=== PATIENT | female | born 1945 | race Caucasian/White ===

== ENCOUNTER → 2024-02-03 | Outpatient (CLI) | payer MEDICARE, SELFPAY ==
[2024-02-03 13:18] LABS: Free T3 2.8 pg/mL (2.18-3.98); T4 Free Direct 1.29 ng/dL (0.76-1.46); Thyroid Stim Hormone (TSH) 0.14 uIU/mL (0.358-3.74)
[2024-02-04 17:07] LABS: Thyroglobulin Antibody < 1.0 IU/mL (0.0-0.9); Thyroid Peroxidase AB 12 IU/mL (0-34)
== END | disposition home or self-care (01) ==
LOC: BFHLAB 09:03
PROVIDERS: PCP Nurse Practitioner Family; Referring Provider Nurse Practitioner Family; Visit Provider Nurse Practitioner Family
DX: E03.9 Hypothyroidism, unspecified (principal)
CPT/HCPCS: 36415; 84439; 84443; 84481; 86376; 86800

== ENCOUNTER → 2024-03-30 | Outpatient (CLI) | payer MEDICARE, SELFPAY ==
[2024-03-30 12:57] LABS: T4 Free Direct 0.98 ng/dL (0.76-1.46); Thyroid Stim Hormone (TSH) 1.45 uIU/mL (0.358-3.74)
== END | disposition home or self-care (01) ==
LOC: BFHLAB 10:35
PROVIDERS: PCP Nurse Practitioner Family; Referring Provider Nurse Practitioner Family; Visit Provider Nurse Practitioner Family
DX: E03.9 Hypothyroidism, unspecified (principal)
CPT/HCPCS: 36415; 84439; 84443

== ENCOUNTER → 2024-08-17 | Outpatient (CLI) | payer MEDICARE, SELFPAY ==
[2024-08-17 12:22] LABS: Absolute Lymphocyte Count 1.86 X10^3/uL (0.83-4.51); Absolute Neutrophil Count 2.3 X10^3/uL (2.0-7.7); Basophil# 0.03 X10^3/uL; Basophil% 0.6 % (0-1); Eosinophil# 0.17 X10^3/uL; Eosinophils% 3.4 % (0-5); Hematocrit 43.4 % (37-47); Hemoglobin 13.7 g/dL (12.0-15.0); Lymphocyte # 1.86 X10^3/ul (0.83-4.51); Lymphocyte % 37.5 % (19-41); Mean Corp Hgb Conc 31.6 g/dL (32-36); Mean Corpuscular Volume 98.2 fL (81-99); Mean Platelet Vol. 9.3 fl (6.2-12.0); Monocyte# 0.56 X10^3/uL; Monocyte% 11.3 % (0-10); NRBC Flagged by Analyzer 0 % (0-5); Neutrophil # 2.33 X10^3/uL (2.7-7.7); Platelet Count 276 K/mm3 (150-450); RBC Distribution Width SD 50.9 fl (35.1-43.9); Red Blood Count 4.42 M/mm3 (4.2-5.4)
[2024-08-17 13:08] LABS: ALB/GLOB Ratio 1.2 RATIO (0.9-2.4); AST(SGOT) 28 U/L (15-37); Alanine Aminotransfer ALT/SGPT 22 U/L (13-56); Albumin, Serum 3.9 g/dL (3.2-5.0); Alkaline Phosphatase 84 U/L (45-117); Anion Gap 4 (5-15); BUN 25 mg/dL (7-18); BUN/Creat Ratio 29.6 RATIO (10-20); Calcium,Total 9.3 mg/dL (8.5-10.1); Chloride 110 mmol/L (98-107); Cholesterol 227 mg/dL (200); Creatinine, Serum 0.84 mg/dL (0.55-1.02); EST Glomerular Filtration Rate 69 mL/min (>60); Est Glom Filt Rate - Afr Amer 84 mL/min (>60); Globulin 3.2 g/dL (2.2-4.2); Glucose 91 mg/dL (74-106); High Density Lipoprotein 60 mg/dL; Potassium 4.7 mmol/L (3.5-5.1); Protein, Total 7.1 g/dL (6.4-8.2); Sodium Level 141 mmol/L (136-145); T4 Free Direct 1.01 ng/dL (0.76-1.46); Triglycerides 61 mg/dL; Very Low Density Lipoprotein 12 mg/dL (5-40)
== END | disposition home or self-care (01) ==
LOC: BFHLAB 09:12
PROVIDERS: PCP Nurse Practitioner Family; Referring Provider Nurse Practitioner Family; Visit Provider Nurse Practitioner Family
DX: I10 Essential (primary) hypertension (principal); E78.5 Hyperlipidemia, unspecified; E03.9 Hypothyroidism, unspecified
CPT/HCPCS: 36415; 80053; 80061; 84439; 84443; 85025

== ENCOUNTER → 2025-01-24 | Outpatient (CLI) | payer MEDICARE, SELFPAY | END | disposition home or self-care (01) | LOC: LABSPEC 11:16 | PROVIDERS: PCP Nurse Practitioner Family; Visit Provider Nurse Practitioner Family | DX: R82.90 Unspecified abnormal findings in urine (principal) | CPT/HCPCS: 87086; 87088; 87186 ==

== ENCOUNTER → 2025-02-01 | Outpatient (CLI) | payer MEDICARE, SELFPAY ==
[2025-02-01 10:10] LABS: Absolute Lymphocyte Count 2.14 X10^3/uL (0.83-4.51); Absolute Neutrophil Count 2.2 X10^3/uL (2.0-7.7); Basophil# 0.05 X10^3/uL; Eosinophil# 0.19 X10^3/uL; Eosinophils% 3.7 % (0-5); Hematocrit 42.1 % (37-47); Hemoglobin 13.4 g/dL (12.0-15.0); Lymphocyte # 2.14 X10^3/ul (0.83-4.51); Lymphocyte % 41.5 % (19-41); Mean Corp Hgb Conc 31.8 g/dL (32-36); Mean Corpuscular Hgb 30.9 pg (27.0-32.0); Mean Corpuscular Volume 97.2 fL (81-99); Mean Platelet Vol. 9.1 fl (6.2-12.0); Monocyte# 0.57 X10^3/uL; NRBC Flagged by Analyzer 0 % (0-5); Neutrophil % 42.6 % (47-70); Platelet Count 298 K/mm3 (150-450); RBC Distribution Width CV 13.9 % (11.6-14.6); RBC Distribution Width SD 50.1 fl (35.1-43.9); Red Blood Count 4.33 M/mm3 (4.2-5.4); White Blood Count 5.2 K/mm3 (4.4-11.0)
[2025-02-01 10:51] LABS: ALB/GLOB Ratio 1.6 RATIO (0.9-2.4); AST(SGOT) 29 U/L (<=31); Alanine Aminotransfer ALT/SGPT 16 U/L (<=34); Albumin, Serum 4.3 g/dL (3.4-4.8); Alkaline Phosphatase 84 U/L (35-104); Anion Gap 9 (5-15); BUN 19 mg/dL (4-19); BUN/Creat Ratio 20.4 RATIO (10-20); Calcium,Total 10.1 mg/dL (7.6-11.0); Carbon Dioxide 26.1 mmol/L (21.0-32.0); Chloride 106 mmol/L (98-108); Cholesterol 205 mg/dL (<=200); Creatinine, Serum 0.91 mg/dL (0.70-1.20); EST Glomerular Filtration Rate 64 (>60); Globulin 2.7 g/dL (2.2-4.2); Glucose 93 mg/dL (70-99); High Density Lipoprotein 50 mg/dL; Low Density Lipoprotein Calc. 142 mg/dL; Potassium 4.2 mmol/L (3.3-5.1); Protein, Total 6.9 g/dL (5.9-8.4); Sodium Level 141 mmol/L (133-145); Total Bilirubin 0.33 mg/dL (0.00-1.30); Triglycerides 67 mg/dL; Very Low Density Lipoprotein 13 mg/dL (5-40); cholesterol:hdl ratio screen 4.09
== END | disposition home or self-care (01) ==
LOC: MTLAB 07:09
PROVIDERS: PCP Nurse Practitioner Family; Referring Provider Nurse Practitioner Family; Visit Provider Nurse Practitioner Family
DX: I10 Essential (primary) hypertension (principal); E78.5 Hyperlipidemia, unspecified; E03.9 Hypothyroidism, unspecified
CPT/HCPCS: 36415; 80053; 80061; 84439; 84443; 85025

== ENCOUNTER → 2025-05-02 | Outpatient (CLI) | payer MEDICARE, SELFPAY ==
--- NOTE | 2025-05-02 10:30 | RAD_ITS ---
PROCEDURE: RIGHT KNEE 1 OR 2 VIEWS 05/02/2025 REASON FOR EXAM: KNEE PAIN TECHNIQUE: RIGHT KNEE 1 OR 2 VIEWS COMPARISON: None. FINDINGS: No evidence of acute fracture or dislocation. Status post total cemented right knee arthroplasty. Hardware is intact without evidence for loosening or failure. Preserved joint spaces. No knee joint effusion. Qualitative osteopenia. No marked soft tissue swelling. RAD/Knee 1 or 2 Views IMPRESSION: 1. No acute fracture or dislocation. 2. Total right knee arthroplasty, with intact hardware. Reading Location: [id number]
--- NOTE | 2025-05-02 10:30 | RAD_ITS ---
PROCEDURE: LUMBAR SPINE 2 OR 3 VIEWS 05/02/2025 REASON FOR EXAM: BACK PAIN TECHNIQUE: Frontal and lateral view radiographs of the lumbar spine. COMPARISON: None. FINDINGS: No evidence of acute fracture or subluxation. Vertebral bodies are preserved in height. Trace degenerative retrolisthesis of L3 on L4. Slight dextroscoliotic curvature. Mild multilevel spondylotic changes with varying degrees of disc space narrowing, endplate sclerosis, anterior osteophytosis, and hypertrophic facet arthropathy. No osseous lytic or blastic lesion appreciated. Cholecystectomy surgical clips. RAD/Lumbar Spine 2 or 3 Views IMPRESSION: No evidence of acute fracture or subluxation. Multilevel degenerative changes as described. Reading Location: [id number]
--- NOTE | 2025-05-02 10:30 | RAD_ITS ---
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 Osteoporosis. No acute bone or soft tissue pathology. RAD/Sacrum-Coccyx min 2 Views IMPRESSION: No acute sacral pathology. Reading [facility]
== END | disposition home or self-care (01) ==
LOC: RAD 10:15
PROVIDERS: PCP Nurse Practitioner Family; Referring Provider Anesthesiology Pain Medicine; Visit Provider Anesthesiology Pain Medicine
DX: M25.561 Pain in right knee (principal); M54.50 Low back pain, unspecified
CPT/HCPCS: 72100; 72220; 73560

== ENCOUNTER → 2025-08-16 | Outpatient (CLI) | payer MEDICARE, SELFPAY ==
--- OUTSIDE RECORDS SUMMARY | 2025-08-16 07:23 | XMS RPT_ITS | CCD ---
Author Organization [facility] Care Team Providers Care Thermite Bomb Loader Name Role Phone Sarbjit Singh Primary Care Provider [phone] SYSTEM, PROVIDER NOT IN Attending Unavaila ble SYSTEM, PROVIDER NOT IN Referring Unavaila ble SARBJIT SINGH Primary Care Unavailable Shaun Hurt Unavailable [phone] SHAUN HURT Admitting Unavailab SHAUN Baig Attending Unavailab SARBJIT Easton Primary Care Unavailable SHAUN HURT Attending Unavailab SHAUN Baig Referring Unavailab SARBJIT East[place] Primary Care Unavailable SHAUN HURT Admitting Unavailab SHAUN Baig Referring Unavailab SARBJIT [place] Primary Care Unavailable CRISTAL ALEX Attending Unavailable CRISTAL ALEX Referring Unavailable SARBJIT SINGH Primary Care Unavailable CRISTAL ALEX Attending Unavailable CRISTAL ALEX Referring Unavailable SARBJIT SINGH Primary Care Unavailable CRISTAL ALEX Attending Unavailable CRISTAL ALEX Referring Unavailable SARBJIT SINGH Primary Care Unavailable CRISTAL ALEX Attending Unavailable CRISTAL ALEX Referring Unavailable SARBJIT SINGH Primary Care Unavailable LAURO LYMAN Attending Unavailable SARBJIT SINGH Primary Care Unavailable SARBJIT SINGH Primary Care Unavailable SHAUN HURT Referring Unavailab le NikoVivianaTayler Unavailable Unavailable Mead II, Sharan Unavailable Unavailable Update Needed Unavailable Unavailable Unavailable Unavailable Unavailable Sarbjit Singh Primary Care Provider Shaun Hurt Unavailable [phone] SARBJIT SINGH Primary Care Unavailable SHAUN HURT Attending Unavailab le SARBJIT SINGH Primary Care Unavailable SHAUN HURT Attending Unavailab SARBJIT Easton Primary Care Unavailable SHAUN HURT Attending Unavailab SARBJIT [place] Primary Care Unavailable BLU, SHAUN TAVAREZ Admitting Unavailab le BLU, SHAUN TAVAREZ Referring Unavailab le ISAI CRISTAL Attending Unavailable SARBJIT SINGH Primary Care Unavailable BLU, SHAUN TAVAREZ Referring Unavailab le BLU, SHAUN TAVAREZ Admitting Unavailab le BLU, SHAUN TAVAREZ Attending Unavailab le SINGHSARBJIT MOODY Primary Care Unavailable BLU, SHAUN TAVAREZ Admitting Unavailab le BLU, HSAUN TAVAREZ Referring Unavailab le SINGH, SARBJIT TURNER Primary Care Unavailable DOROTHEA, SARBJIT TURNER Primary Care Unavailable BLU, SHAUN TAVAREZ Attending Unavailab le SINGH, SARBJIT TURNER Primary Care Unavailable BLU, SHAUN TAVAREZ Admitting Unavailab le BLU, SHAUN TAVAREZ Referring Unavailab le SINGH, SARBJIT TURNER Primary Care Unavailable NIKOLE VANG Attending Unavailable Madhav Salazar Unavailable Madhav Salazar Unavailable Krysta, Eden Unavailable Unavailable Mead II, Dr. Sharan Whitney Referring Unavai lable Mead II, Dr. Sharan Whitney Attending Unavai lable Mateo, Ms. Madhav Connelly Primary Care Unavail able Farrier, MsMarybel Pruett Attending Unavaila ble Hellinger, Ms. Madhav Connelly Primary Care Unavail able Farrier, MsMarybel Pruett Referring Unavaila ble Farrier, MsMarybel Pruett Referring Unavaila ble Farrier, MsMarybel Pruett Attending Unavaila ble Hellinger, Ms. Madhav Connelly Primary Care Unavail able Farrier, MsMarybel Pruett Referring Unavaila ble Farrier, MsMarybel Pruett Attending Unavaila ble Hellinger, Ms. Madhav Connelly Primary Care Unavail able Farrier, MsMarybel Pruett Attending Unavaila ble Manocchio, MsMarybel Eden Referring Unavail able Hellinger, Ms. Madhav Connelly Primary Care Unavail able Hellinger, Ms. Madhav Connelly Primary Care Unavail able Mead II, Dr. Sharan Whitney Referring Unavai lable Mead II, Dr. Sharan Whitney Attending Unavai lable Hailey MARTEL, Nicolle Unavailable Madhav Dykes Primary Care Provide r HAILEY, NICOLLE Referring Unavailable MADHAV SALAZAR Primary Care Unavailable Hailey SOLUTION MANAGER-C, [place] Primary Care Provider Hailey SOLUTION MANAGER-C, Nicolle Referring Provider Karime SOLUTION MANAGER-C, Fouzia Attending Provider Hailey SOLUTION MANAGER-C, Nicolle Attending Provider Barbara PALENCIA, Dr. Patel Attending Provider Dr. Amanda Jimenez MD Referring Provider Fouzia Schaffer Attending Unavailable Hailey, Nicolle Primary Care Unavailable Amanda Jimenez Attending Unavailable Amanda Jimenez Referring Unavailable Hailey, Nicolle Primary Care Unavailable Hailey, Nicolle Attending Unavailable Hailey, Nicolle Primary Care Unavailable Hailey, Nicolle Referring Unavailable Fouzia Schaffer Attending Unavailable Hailey, Nicolle Referring Unavailable Hailey, Nicolle Primary Care Unavailable Hailey, Nicolle Attending Unavailable Hailey, Nicolle Referring Unavailable Hailey, Nicolle Primary Care Unavailable Allergies Allergy Classification Reported Allergen(s) Allergy Type Date of Onset Reaction(s) Facility (1 source) ALLERGIES NOT ON FILE; Translations: [ALLERGIES NOT ON FILE] Propensity to adverse reactions (disorder) [facility] 2 Repository Medications Current Medications Medication Drug Class(es) Dates Sig (Normalized) Sig (Original) acetaminophen 325 mg / HYDROcodone bitartrate 5 mg oral tablet (20 sources) Opioid Agonist Start: 01-13-2022 End: 01-15-2022 take 1 tablet by mouth every six hours hydrocodone-acetami nophen 5 mg-325 mg oral tablet ; 1 tab(s) orally every 6 hours Quantity: 12 Refills: 0 Ordered: 13-Jan-2022 Eden Willoughby Start: 13-Jan-2022 End: 15-Jan-2022 Generic Substitution Allowed Comments: Caution federal law prohibits the transfer of this drug to any person other than the person for whom it was prescribed.May cause drowsiness. Alcohol may intensify this effect. Use care when operating dangerous machinery.This product contains acetaminophen. Do not use with any other product containing acetaminophen to prevent possible liver damage.Using more of this medication than prescribed may cause serious breathing problems. Start: 01-13-2022 HYDROcodone-Ac etaminophen 5-325 MG Oral Tablet Quantity: 12 Refills: 0 Ordered: 13-Jan-2022 DO Start : 13-Jan-2022 Active Start: 10-21-2019 End: 10-28-2019 take 1 tablet by mouth every four hours as needed for pain HYDROcodone-acetaminophen (NORCO) 5-325 mg per tablet Indications: Status post total right knee replacement Take 1 (one) tablet by mouth every 4 (four) hours as needed for pain . 40 tablet 0 10/21/2019 10/28/2019 Start: 10-14-2019 End: 10-21-2019 take 1 tablet by mouth once as needed, then take 2 tablets by mouth every four hours as needed HYDROcodone-acetaminophen (NORCO) 5-325 mg per tablet Indications: S/P total knee arthroplasty, right Take 1 (one) tablet to 2 (two) tablets by mouth every 4 (four) hours as needed 7 days . 40 tablet 0 10/14/2019 10/21/2019 Start: 10-13-2019 End: 10-14-2019 take 1-2 tablets by mouth every four hours as needed 1-2 tablet, Oral, Every 4 hours PRN, moderate to severe pain, Starting 10/13/19 at 1236 For patient reported pain 4/10 or less, give 1 tablet; 5 and above/10, give 2 tablets Comment on above: Caution federal law prohibits the transfer of this drug to any person other than the person for whom it was prescribed.May cause drowsiness. Alcohol may intensify this effect. Use care when operating dangerous machinery.This product contains acetaminophen. Do not use with any other product containing acetaminophen to prevent possible liver damage.Using more of this medication than prescribed may cause serious breathing problems. aspirin 325 mg delayed release oral tablet (20 sources) Platelet Aggregation Inhibitor, Nonsteroidal Anti-inflammatory Drug Start: 10-13-2019 End: 11-13-2019 take 1 tablet by mouth twice daily aspirin 325 MG EC tablet Take 1 (one) tablet (325 mg total) by mouth 2 (two) times a day . 60 tablet 0 10/14/2019 11/13/2019 Active End: 10-14-2019 take 1 tablet by mouth once daily aspirin 81 MG EC tablet Take 81 mg by mouth daily . 0 10/14/2019 Discontinued (Stop Taking at Discharge) Calcium Carbonate / vitamin D3 (18 sources) take 1 tablet by mouth twice daily calcium carbonate/vitamin D3 (CALCIUM 500 + D, D3, ORAL) Take 1 tablet by mouth 2 (two) times a day. 0 Active cranberry fruit extract (CRANBERRY EXTRACT ORAL) (18 sources) take 1 tablet by mouth once daily cranberry fruit extract (CRANBERRY EXTRACT ORAL) Take 1 tablet by mouth daily. 0 Active docusate sodium 100 mg oral capsule (18 sources) take 1 capsule by mouth twice daily docusate sodium (COLACE) 100 MG capsule Take 100 mg by mouth 2 (two) times a day. 0 Active FIBER, HERBAL, ORAL (18 sources) take 1 tablet by mouth once daily FIBER, HERBAL, ORAL Take 1 tablet by mouth daily. 0 Active latanoprost 0.05 mg/ml ophthalmic solution (20 sources) Prostaglandin Analog Start: 025 Latanoprost 0.005 % drops Active 1 NMA OPHTHALMIC AT BEDTIME January 22, 2025 12:00am Start: 05-23-2021 Latanoprost 0. 005 % Ophthalmic Solution Quantity: 7 Refills: 0 Ordered: 23-May-2021 DO Start : 23-May-2021 Active Start: 10-13-2019 End: 10-14-2019 take 1 drop(s) into the eye(s) once daily 1 drop, Right Eye, Daily, First dose on Fri10/13/19 at 1500 Start: 06-27-2019 take 1 drop(s) into the eye(s) once daily latanoprost (XALATAN) 0.005 % ophthalmic solution Administer 1 drop to the right eye daily . 0 06/27/2019 Active Start: 06-27-2019 latanoprost (X ALATAN) 0.005 % ophthalmic solution LATANOPROST 0.00 5% EYE DROPS ; 1 drop(s) in the right eye once a day (in the evening) Quantity: 0 Refills: 0 Ordered: 13-Jan-2022 Mimi Tomlinson Generic Substitution Allowed Comments: Source=Surescripts, Medication=LATANOPROST 0.005% EYE DROPS, OriginatingSource=[facility], OriginatingProvider=COREY WIN, [id number], Date Last Modified/Filled=23-May-2021 Comment on above: Source=Surescripts, Medication=LATANOPROST 0.005% EYE DROPS, OriginatingSource=[facility], OriginatingProvider=COREY WIN, [id number], Date Last Modified/Filled=23-May-2021 levothyroxine sodium 0.088 mg oral tablet (20 sources) l-Thyroxine Start : 01-22 take 1 tablet by mouth once daily Levothyroxine (Synthroid) 88 mcg tablet Active 88 ug PO daily January 22, 2025 12:00am Start: 09-21-2021 Synthroid 100 MCG Oral Tablet Quantity: 90 Refills: 0 Ordered: 17-Nov-2021 DO Start : 21-Sep-2021 Active Start: 03-22-2021 Synthroid 88 M CG Oral Tablet Quantity: 90 Refills: 0 Ordered: 21-May-2021 DO Start : 22-Mar-2021 Active Start: 05-07-2019 End: 10-14-2019 take 1 tablet by mouth once daily Synthroid 75 mcg tablet Take 75 mcg by mouth once daily . 0 05/07/2019 Active Start: 05-07-2019 SYNTHROID 50 m cg tablet 75 mcg . 0 05/07/2019 Active Start: 05-07-2019 SYNTHROID 50 m cg tablet take 1 tablet by kevan th once daily, then take 1 tablet by mouth once daily SYNTHROID 100 MCG TABLET ; 1 tab(s) orally once a day//Brand Name//curently pt takes (7) tabs on Friday Night//pt was consulted on taking medication once daily Quantity: 0 Refills: 0 Ordered: 13-Jan-2022 Mimi Tomlinson Generic Substitution Allowed Comments: Source=Isacrivenu, Medication=SYNTHROID 100 MCG TABLET, OriginatingSource=[facility], OriginatingProvider=MADHAV SALAZAR, Duration=90, Date Last Modified/Filled=17-Nov-2021 Levothyroxine So dium TABS Quantity: 0 Refills: 0 Ordered: 29-Oct-2019 DO Active Levothyroxine So dium TABS Refills: 0 Active Comment on above: Source=Surescripts, Medication=SYNTHROID 100 MCG TABLET, OriginatingSource=[facility], OriginatingProvider=MADHAV SALAZAR, Duration=90, Date Last Modified/Filled=17-Nov-2021 Lutein (18 sources) take 1 tablet by mouth once daily LUTEIN ORAL Take 1 tablet by mouth daily. 0 Active multivit-minerals /folic acid (MULTIVIT WITH MIN-FOLIC ACID ORAL) (18 sources) take 1 tablet by mouth once daily multivit-minerals /folic acid (MULTIVIT WITH MIN-FOLIC ACID ORAL) Take 1 tablet by mouth daily. 0 Active pantoprazole 20 mg delayed release oral tablet (20 sources) Proton Pump Inhibitor Start : 10-13 End: 11-13 take 1 tablet by mouth once daily pantoprazole (PROTONIX) 20 MG tablet Take 1 (one) tablet (20 mg total) by mouth daily . 30 tablet 0 10/14/2019 11/13/2019 Active SELENIUM ORAL (18 sources) take 1 tablet by mouth once daily SELENIUM ORAL Take 1 tablet by mouth daily. 0 Active Completed/Discontinued Medications Medication Drug Class(es) Dates Sig (Normalized) Sig (Original) acetaminophen 325 mg oral tablet (11 sources) Start: 10-14-2019 End: 10-24-2019 take 2 tablets by mouth every four hours acetaminophen (TYLENOL) 325 MG tablet Take 2 (two) tablets (650 mg total) by mouth every 4 (four) hours for 10 days . 30 tablet 0 10/14/2019 10/24/2019 Start: 10-13-2019 End: 10-14-2019 take 650 mg by mouth every four hours 650 mg, Oral, Every 4 hours scheduled, First dose on Fri10/13/19 at 1330 atorvastatin 10 mg oral tablet (7 sources) HMG-CoA Reductase Inhibitor Start: 05-07-2019 End: 10-15-2019 atorvastatin (LIPITOR) 10 MG tablet calcium chloride 0.0014 meq/ml / potassium chloride 0.004 meq/ml / sodium chloride 0.103 meq/ml / sodium lactate 0.028 meq/ml injectable solution (3 sources) Start: 10-13-2019 End: 10-14-2019 take 100 mL intravenous route every hour 100 mL/hr, Intravenous, Continuous, Starting Fri10/13/19 at 1330 Saline lock once tolerating oral intake without nausea Start: 10-13-2019 End: 10-14-2019 lactated ringers bolus 1,000 mL ceFAZolin 1000 mg injection (1 source) Cephalosporin Antibacterial Start: 10-13-2019 End: 10-14-2019 take 1000 mg intravenous route every eight hours 1,000 mg, Intravenous, at 100 mL/hr, Every 8 hours, First dose on Fri10/13/19 at 1230, For 3 doses, PACU to Post Procedure Starting in pacu. Indication (POST PROCEDURE): Ortho docusate sodium 50 mg / sennosides, snf 8.6 mg oral tablet (1 source) Start: 10-13-2019 End: 10-14-2019 take 1 tablet by mouth twice daily 1 tablet, Oral, 2 times daily, First dose on Fri10/13/19 at 2100 NOT for abdominal surgery patients. &nb sp;Hold for loose stools. Do Not Crush or Chew if administering orally due to bitter taste. May be crushed if given via tube. 1 ml ketorolac tromethamine 15 mg/ml injection (1 source) Nonsteroidal Anti-inflammatory Drug, Cyclooxygenase Inhibitor Start: 10-13-2019 End: 10-14-2019 15 mg, Intravenous, Every 6 hours scheduled, First dose on Fri10/13/19 at 1330, For 48 hours magnesium hydroxide 80 mg/ml oral suspension (1 source) Start: 10-13-2019 End: 10-14-2019 take 2400 mg by mouth once daily as needed for constipation 2,400 mg (30 mL), Oral, Daily PRN, constipation, contipation, Starting Fri10/13/19 at 1236 naloxone (NARCAN) injection 0.1 mg (1 source) Start: 10-13-2019 End: 10-14-2019 naloxone (NARCAN) injection 0.1 mg nitrofurantoin, macrocrystals 50 mg oral capsule (12 sources) Nitrofuran Antibacterial Start: 11-27-2022 take 1 capsule by mouth once daily Nitrofurantoin Macrocrystal 50 MG Oral Capsule TAKE 1 CAPSULE Daily Quantity: 90 Refills: 3 Ordered: 27-Nov-2022 Sharan Mead II, MD Start : 27-Nov-2022 Active Start: 11-08-2019 take 1 capsule by [facility] once daily Nitrofurantoin Macrocrystal 50 MG Oral Capsule TAKE 1 CAPSULE Daily Quantity: 90 Refills: 3 Ordered: 14-Nov-2021 Sharan Mead II, MD Start : 08-Nov-2019 Active Comment on above: Source=Surescripts, Medication=NITROFURANTOIN MCR 50 MG CAP, OriginatingSource=[facility], OriginatingProvider=SHARAN MEAD II, Duration=90, Date Last Modified/Filled=14-Nov-2021 nitrofurantoin, macrocrystals 25 mg / nitrofurantoin, monohydrate 75 mg oral capsule (2 sources) Nitrofuran Antibacterial Star t: 01-04 End: 01-05 take 1 capsule by mouth every twelve hours at mealtime Nitrofurantoin Monohyd/M-Cryst (Macrobid) 100 mg capsule Discontinued 100 mg PO Q12H 10 5 0 January 22, 2025 12:00am January 26, 2025 12:00am January 27, 2025 12:07am must administer with a meal/food 2 ml ondansetron 2 mg/ml injection (1 source) Serotonin-3 Receptor Antagonist Star t: 05-25 End: 06-25 take 4 mg intravenous route every six hours as needed 4 mg, Intravenous, Every 6 hours PRN, nausea, vomiting, Starting 10/13/19 at 1236 polyethylene glycol 3350 73542 mg powder for oral solution (8 sources) Osmotic Laxative Star t: 06-25 End: 10-06 polyethylene glycol (MIRALAX) 17 gram powder Take 17 (seventeen) g by mouth daily for 7 days . 255 g 0 10/14/2019 10/21/2019 regadenoson (LEXISCAN) 0.4 mg/5 mL injection - ADS Override Pull (1 source) Star t: 11-25 End: 11-25 20 regadenoson (LEXISCAN) 0.4 mg/5 mL injection - ADS Override Pull Sodium Chloride (1 source) Star t: 05-25 20 End: 06-25 20 sodium chloride (PF) (NS) flush 5 mL technetium (Tc-99m) tetrofosmin (Tc-MYOVIEW) injection 8-25 millicurie (2 sources) Star t: 11-25 20 End: 11-25 20 technetium (Tc-99m) tetrofosmin (Tc-MYOVIEW) injection 8-25 millicurie Start: 10-07-2019 End: 10-07-2019 technetium (Tc-99m) tetrofos min (Tc-MYOVIEW) injection 8-25 millicurie tranexamic acid 650 mg oral tablet (1 source) Antifibrinolytic Agent Start: 10-13-2019 End: 10-13-2019 tranexamic acid (LYSTEDA) tablet 1,950 mg Start: 10-13-2019 End: 10-13-2019 tranexamic acid (LYSTEDA) ta blet 1,950 mg trimethoprim 100 mg oral tablet (20 sources) Dihydrofolate Reductase Inhibitor Antibacterial Start: 11-13-2020 take 1 tablet by mouth once daily Trimethoprim 100 MG Oral Tablet Take 1 tablet daily Quantity: 90 Refills: 1 Ordered: 02-Dec-2022 Shaarn Mead II, MD Start : 13-Nov-2020 Active Start: 06-27-2019 End: 10-14-2019 take 1 tablet by mouth twice daily trimethoprim (TRIMPEX) 100 mg tablet Take 100 mg by mouth 2 (two) times a day . 0 06/27/2019 Active Trimethoprim 100 MG Oral Tablet Quantity: 0 Refills: 0 Ordered: 08-Nov-2019 DO Active Problems Active Problems Problem Classification Problem Date Documented Date Episodic/Chronic Cataract (20 sources) Combined form of senile cataract; Translations: [Combined form of senile cataract of left eye] Onset: 08-05-2016 06-28-2019 Chronic Cataract (20 sources) Pseudophakia of right eye; Translations: [Pseudophakia of right eye] Onset: 08-05-2016 06-28-2019 Disorders of lipid metabolism (20 sources) Hypercholesterolemia; Translations: [High cholesterol] 09-24-2019 Chronic Essential hypertension (1 source) Essential (primary) hypertension; Translations: [Essential (primary) hypertension] Onset: 02-09-2025 Chronic Fracture of lower limb (20 sources) Fracture of tibial plateau; Translations: [Closed fracture of upper end of tibia alone] Onset: 01-25-2022 01-13-2022 Episodic Genitourinary symptoms and ill-defined conditions (11 sources) Female stress incontinence; Translations: [Stress incontinence, female] Chronic Glaucoma (20 sources) Primary open angle glaucoma; Translations: [Glaucoma] Onset: 08-05-2016 06-28-2019 Chronic Osteoarthritis (1 source) Osteoarthritis of left knee joint; Translations: [Primary osteoarthritis of left knee] Other connective tissue disease (5 sources) History of total knee arthroplasty; Translations: [S/P total knee arthroplasty, right] Chronic Other nervous system disorders (11 sources) Abnormal gait; Translations: [Abnormality of gait] Episodic Other non-traumatic joint disorders (11 sources) Knee stiff; Translations: [Stiffness of joint, not elsewhere classified, lower leg] Episodic Other non-traumatic joint disorders (2 sources) Knee pain; Translations: [Chronic pain of right knee] Episodic Other non-traumatic joint disorders (20 sources) Pain in right knee; Translations: [Chronic pain of right knee] Onset: 05-14-2025 Episodic Other screening for suspected conditions (not mental disorders or infectious disease) (5 sources) Electrocardiogram abnormal; Translations: [Patient encounter status] Onset: 09-13-2024 09-13-2024 Episodic Thyroid disorders (2 sources) Hypothyroidism; Translations: [Hypothyroidism, unspecified] 01-22-2025 Chronic Thyroid disorders (20 sources) Disorder of thyroid gland; Translations: [Disease of thyroid gland] 09-24-2019 Episodic Unclassified (20 sources) Closed fracture of right tibial plateau; Translations: [Closed fracture of right tibial plateau, initial encounter] Onset: 09-14-2019 09-14-2019 Unclassified (20 sources) Patient encounter status; Translations: [Preop cardiovascular exam] 09-24-2019 Unclassified (2 sources) FALL/ LEG INJURY 01-13-2022 Comment on above: FALL/ LEG INJURY Unclassified (1 source) Tibial plateau fracture, left 01-13-2022 Unclassified (1 source) Closed fracture of left patella 01-13-2022 Urinary tract infections (13 sources) Acute urinary tract infection; Translations: [Urinary tract infection, site not specified] 01-22-2025 Episodic Past or Other Problems Problem Classification Problem Date Documented Da te Episodic/Chronic Blindness and vision defects (20 sources) Regular astigmatism; Translations: [Regular astigmatism] Onset: 08-05-2016 06-28-2019 Episodic Genitourinary symptoms and ill-defined conditions (20 sources) Nocturia; Translations: [Nocturia] Onset: 01-22-2025 Episodic Other eye disorders (20 sources) History of cataract extraction; Translations: [S/P cataract extraction and insertion of intraocular lens] Onset: 08-15-2016 06-28-2019 Episodic Other eye disorders (20 sources) Tear film insufficiency; Translations: [Dry eye syndrome] Onset: 08-05-2016 06-28-2019 Episodic NEGATED: Highlighted row has not occurred!Residual codes; unclassified (20 sources) Disease Episodic Results Test Name Value Interpretation Reference Range Facility Knee 1 or 2 Viewson 05-02-20 Knee 1 or 2 Views [facility] [address] [place] [id number] Knee 1 or 2 Views MR#: [id number] Acct: [id number] Name: CAROL GRIMM ANN Rep #: [id number] : 1945 F 79 From: Vinny Cummins MD PCP: DEVANG Obando Status: REG CLI Study: Knee 1 or 2 Views Date of Exam: 05/02/25 Exam# [id number] Ordering Dr: Amanda Jimenez MD PROCEDURE: RIGHT KNEE 1 OR 2 VIEWS 05/02/2025 REASON FOR EXAM: KNEE PAIN TECHNIQUE: RIGHT KNEE 1 OR 2 VIEWS COMPARISON: None. FINDINGS: No evidence of acute fracture or dislocation. Status post total cemented right knee arthroplasty. Hardware is intact without evidence for loosening or failure. Preserved joint spaces. No knee joint effusion. Qualitative osteopenia. No marked soft tissue swelling. RAD/Knee 1 or 2 Views IMPRESSION: 1. No acute fracture or dislocation. 2. Total right knee arthroplasty, with intact hardware. Reading Location: [id number] CC: SOLUTION MANAGER-Richard Pacheco; Dr. Amanda Jimenez MD Foreign Language Professor: Signed Normal [facility] Lumbar Spine 2 or 3 Viewson 05-02-2025 Lumbar Spine 2 or 3 Views [facility] [address] [place] [address] Lumbar Spine 2 or 3 Views MR#: [id number] Acct: [id number] Name: CAROL GRIMM ANN Rep #: [id number] : 1945 F 79 From: Vinny Cummins MD PCP: DEVANG Obando Status: REG CLI Study: Lumbar Spine 2 or 3 Views Date of Exam: Exam# [id number] Ordering Dr: Amanda Jimenez MD PROCEDURE: LUMBAR SPINE 2 OR 3 VIEWS 05/02/2025 REASON FOR EXAM: BACK PAIN TECHNIQUE: Frontal and lateral view radiographs of the lumbar spine. COMPARISON: None. FINDINGS: No evidence of acute fracture or subluxation. Vertebral bodies are preserved in height. Trace degenerative retrolisthesis of L3 on L4. Slight dextroscoliotic curvature. Mild multilevel spondylotic changes with varying degrees of disc space narrowing, endplate sclerosis, anterior osteophytosis, and hypertrophic facet arthropathy. No osseous lytic or blastic lesion appreciated. Cholecystectomy surgical clips. RAD/Lumbar Spine 2 or 3 Views IMPRESSION: No evidence of acute fracture or subluxation. Multilevel degenerative changes as described. Reading Location: [facility] CC: SOLUTION MANAGER-C Nicolle Pacheco; Dr. Amanda Jimenez MD Foreign Language Professor: Signed Normal [facility] Sacrum-Coccyx min 2 Viewson 05-02-2025 Sacrum-Coccyx min 2 Views [facility] [address] [place] [id number] Sacrum-Coccyx min 2 Views MR#: [id number] Acct: [id number] Name: CAROL GRIMM Rep #: [id number] : 1945 F 79 From: Adam Apple MD PCP: DEVANG Obando Status: REG CLI Study: Sacrum-Coccyx min 2 Views Date of Exam: Exam# [id number] Ordering Dr: Amanda Jimenez MD 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 Osteoporosis. No acute bone or soft tissue pathology. RAD/Sacrum-Coccyx min 2 Views IMPRESSION: No acute sacral pathology. Reading Location: [place] [address] CC: DEVANG Pacheco; Dr. Amanda Jimenez MD Foreign Language Professor: Signed Normal [facility] Absolute lymphocyte countOrd ered By: Nicolle Pacheco on 02-01-2025 Lymphocytes Auto (Unsp spec) [#/Vol] 2.14 10*3/uL 0.83-4.51 [facility] Absolute neutrophil countOrd ered By: Nicolle Pacheco on 02-01-2025 Neutrophils (Bld) [#/Vol] 2.2 10*3/uL 2.0-7.7 [facility] Anion gap in Serum or Plasma Ordered By: Nicolle Pacheco on 02-01-2025 Anion gap [Moles/Vol] 9 mmol/L 5-15 [facility] Automated lymphocyte count a s percentage of total leukocytesOrdered By: Nicolle Pacheco on 02-01-2025 Lymphocytes/100 WBC Auto (Unsp spec) 41.5 % High 19-41 [facility] BUN/creatinine ratioOrdered By: Nicolle Pacheco on 02-01-2025 Urea nitrogen/Creatinine [Mass ratio] 20.4 mg/mg High 10-20 [facility] Basophil percentageOrdered B y: Nicolle Pacheco on 02-01-2025 Basophils/100 WBC (Bld) 1.0 % 0-1 [facility] Bilirubin, totalOrdered By: Nicolle Pacheco on 02-01-2025 Bilirubin [Mass/Vol] 0.33 mg/dL 0.00-1.30 [facility] CBC W/Diff, Automatedon 01-05 Absolute Lymph 2.14 X10 3/uL Normal 0.83-4.51 [facility] Comment on above: Performed By: #### L 501.9520, L100.0100, L506.0400, L500.4100, L500.4050 #### [facility] [address] [place], [address] Absolute Neut 2.2 X10 3/uL Normal 2.0-7.7 [facility] Comment on above: Performed By: #### L 501.9520, L100.0100, L506.0400, L500.4100, L500.4050 #### [facility] [address] [place], [address] Basophils/100 WBC (Bld) 1.0 % Normal 0-1 [facility] Comment on above: Performed By: #### L 501.9520, L100.0100, L506.0400, L500.4100, L500.4050 #### [facility] [address] [place], [address] Eosinophils/100 WBC (Bld) 3.7 % Normal 0-5 [facility] Comment on above: Performed By: #### L 501.9520, L100.0100, L506.0400, L500.4100, L500.4050 #### [facility] [address] [place], [address] Erythrocyte distribution width (RBC) [Ratio] 13.9 % Normal 11.6-14.6 [facility] Comment on above: Performed By: #### L 501.9520, L100.0100, L506.0400, L500.4100, L500.4050 #### [facility] [address] [place], [address] Hematocrit (Bld) [Volume fraction] 42.1 % Normal 37-47 [facility] Comment on above: Performed By: #### L 501.9520, L100.0100, L506.0400, L500.4100, L500.4050 #### [facility] [address] [place], [address] Hemoglobin (Bld) [Mass/Vol] 13.4 g/dL Normal 12.0-15.0 [facility] Comment on above: Performed By: #### L 501.9520, L100.0100, L506.0400, L500.4100, L500.4050 #### [facility] [address] [place], [address] IG% 0.200 Normal 0.0-0.9 [facility] Comment on above: Result Comment: IG% - Immature Granulocytes (promyelocytes, myelocytes and metamyelocytes) > 1% indicates that a LEFT SHIFT is Present. Performed By: #### L 501.9520, L100.0100, L506.0400, L500.4100, L500.4050 #### [facility] [address] [place], [address] Lymphocytes/100 WBC (Bld) 41.5 % High 19-41 [facility] Comment on above: Performed By: #### L 501.9520, L100.0100, L506.0400, L500.4100, L500.4050 #### [facility] [address] [place], [address] MCH (RBC) [Entitic mass] 30.9 pg Normal 27.0-32.0 [facility] Comment on above: Performed By: #### L 501.9520, L100.0100, L506.0400, L500.4100, L500.4050 #### [facility] [address] [place], [address] MCHC (RBC) [Mass/Vol] 31.8 g/dL Low 32-36 [facility] Comment on above: Performed By: #### L 501.9520, L100.0100, L506.0400, L500.4100, L500.4050 #### [facility] [address] [place], [address] MCV (RBC) [Entitic vol] 97.2 fL Normal 81-99 [facility] Comment on above: Performed By: #### L 501.9520, L100.0100, L506.0400, L500.4100, L500.4050 #### [facility] [address] [place], [address] Monocytes/100 WBC (Bld) 11.0 % High 0-10 [facility] Comment on above: Performed By: #### L 501.9520, L100.0100, L506.0400, L500.4100, L500.4050 #### [facility] [address] [place], [address] Neutrophils/100 WBC (Bld) 42.6 % Low 47-70 [facility] Comment on above: Performed By: #### L 501.9520, L100.0100, L506.0400, L500.4100, L500.4050 #### [facility] [address] [place], [address] Nucleated RBC (Bld) [#/Vol] 0 10*3/uL Normal 0-5 [facility] Comment on above: Performed By: #### L 501.9520, L100.0100, L506.0400, L500.4100, L500.4050 #### [facility] [address] [place], [address] Platelet mean volume (Bld) [Entitic vol] 9.1 fL Normal 6.2-12.0 [facility] Comment on above: Performed By: #### L 501.9520, L100.0100, L506.0400, L500.4100, L500.4050 #### [facility] [address] [place], [address] Platelets (Bld) [#/Vol] 298 10*3/uL Normal 150-450 [facility] Comment on above: Performed By: #### L 501.9520, L100.0100, L506.0400, L500.4100, L500.4050 #### [facility] [address] [place], [address] RBC (Bld) [#/Vol] 4.33 10*6/uL Normal 4.2-5.4 [facility] Comment on above: Performed By: #### L 501.9520, L100.0100, L506.0400, L500.4100, L500.4050 #### [facility] [address] [place], [address] RDW SD 50.1 fl High 35.1-43.9 [facility] Comment on above: Performed By: #### L 501.9520, L100.0100, L506.0400, L500.4100, L500.4050 #### [facility] [address] [place], [address] WBC (Bld) [#/Vol] 5.2 10*3/uL Normal 4.4-11.0 [facility] Comment on above: Performed By: #### L 501.9520, L100.0100, L506.0400, L500.4100, L500.4050 #### [facility] [address] [place], [address] Calculated very low density lipoprotein (VLDL) cholesterol measurementOrdered By: Nicolle Pacheco on 02-01-2025 Calculated very low density lipoprotein (VLDL) cholesterol measurement 13 mg/dL 5-40 [facility] Carbon dioxide, total [Moles /volume] in Central venous bloodOrdered By: Nicolle Pacheco on 02-01-2025 CO2 [Moles/Vol] 26.1 mmol/L 21.0-32.0 [facility] Chloride assayOrdered By: Ra lisa Pacheco on 02-01-2025 Chloride [Moles/Vol] 106 mmol/L 98-108 [facility] Comprehensive Metabolic Prof ilon 02-01-2025 Albumin [Mass/Vol] 4.3 g/dL Normal 3.4-4.8 [facility] Comment on above: Performed By: #### L 501.9520, L100.0100, L506.0400, L500.4100, L500.4050 #### [facility] [address] [place], [address] Albumin/Globulin [Mass ratio] 1.6 {ratio} Normal 0.9-2.4 [facility] Comment on above: Performed By: #### L 501.9520, L100.0100, L506.0400, L500.4100, L500.4050 #### [facility] [address] [place], [address] ALK PHOS 84 U/L Normal 35-104 [facility] Comment on above: Performed By: #### L 501.9520, L100.0100, L506.0400, L500.4100, L500.4050 #### [facility] [address] [place], [address] ALT [Catalytic activity/Vol] 16 U/L Normal <=34 [facility] Comment on above: Performed By: #### L 501.9520, L100.0100, L506.0400, L500.4100, L500.4050 #### [facility] [address] [place], [address] AST [Catalytic activity/Vol] 29 U/L Normal <=31 [facility] Comment on above: Performed By: #### L 501.9520, L100.0100, L506.0400, L500.4100, L500.4050 #### [facility] [address] [place], [address] Bilirubin [Mass/Vol] 0.33 mg/dL Normal 0.00-1.30 [facility] Comment on above: Performed By: #### L 501.9520, L100.0100, L506.0400, L500.4100, L500.4050 #### [facility] [address] [place], [address] BUN/CRE 20.4 RATIO High 10-20 [facility] Comment on above: Performed By: #### L 501.9520, L100.0100, L506.0400, L500.4100, L500.4050 #### [facility] [address] [place], [address] Calcium [Mass/Vol] 10.1 mg/dL Normal 7.6-11.0 [facility] Comment on above: Performed By: #### L 501.9520, L100.0100, L506.0400, L500.4100, L500.4050 #### [facility] [address] [place], [address] Chloride [Moles/Vol] 106 mmol/L Normal 98-108 [facility] Comment on above: Performed By: #### L 501.9520, L100.0100, L506.0400, L500.4100, L500.4050 #### [facility] [address] [place], [address] CO2 [Moles/Vol] 26.1 mmol/L Normal 21.0-32.0 [facility] Comment on above: Performed By: #### L 501.9520, L100.0100, L506.0400, L500.4100, L500.4050 #### [facility] [address] [place], [address] Creatinine [Mass/Vol] 0.91 mg/dL Normal 0.70-1.20 [facility] Comment on above: Performed By: #### L 501.9520, L100.0100, L506.0400, L500.4100, L500.4050 #### [facility] [address] [place], [address] GAP 9 Normal 5-15 [facility] Comment on above: Performed By: #### L 501.9520, L100.0100, L506.0400, L500.4100, L500.4050 #### [facility] [address] [place], [address] GFR/1.73 sq M.predicted among non-blacks MDRD (S/P/Bld) [Vol rate/Area] 64 mL/min/{1.73_m2} Normal >60 [facility] Comment on above: Result Comment: mL/m in/1.73m2 CKD-EPI Creatinine Equation (2020) Performed By: #### L 501.9520, L100.0100, L506.0400, L500.4100, L500.4050 #### [facility] [address] [place], [address] Globulin (S) [Mass/Vol] 2.7 g/dL Normal 2.2-4.2 [facility] Comment on above: Performed By: #### L 501.9520, L100.0100, L506.0400, L500.4100, L500.4050 #### [facility] [address] [place], [address] Glucose [Mass/Vol] 93 mg/dL Normal 70-99 [facility] Comment on above: Performed By: #### L 501.9520, L100.0100, L506.0400, L500.4100, L500.4050 #### [facility] [address] [place], [address] Potassium [Moles/Vol] 4.2 mmol/L Normal 3.3-5.1 [facility] Comment on above: Performed By: #### L 501.9520, L100.0100, L506.0400, L500.4100, L500.4050 #### [facility] [address] [place], [address] Sodium [Moles/Vol] 141 mmol/L Normal 133-145 [facility] Comment on above: Performed By: #### L 501.9520, L100.0100, L506.0400, L500.4100, L500.4050 #### [facility] [address] [place], [address] T PROT 6.9 g/dL Normal 5.9-8.4 [facility] Comment on above: Performed By: #### L 501.9520, L100.0100, L506.0400, L500.4100, L500.4050 #### [facility] [address] [place], [address] Urea nitrogen [Mass/Vol] 19 mg/dL Normal 4-19 [facility] Comment on above: Performed By: #### L 501.9520, L100.0100, L506.0400, L500.4100, L500.4050 #### [facility] [address] [place], [address] Eosinophil percentageOrdered By: Nicolle Pacheco on 02-01-2025 Eosinophils/100 WBC (Bld) 3.7 % 0-5 [facility] Erythrocyte distribution wid th ratioOrdered By: [facility]-01-2025 Erythrocyte distribution width (RBC) [Ratio] 13.9 % 11.6-14.6 [facility] Erythrocyte distribution wid th standard deviationOrdered By: [facility] on 02-01-2025 Erythrocyte distribution width (RBC) [Ratio] 50.1 fl High 35.1-43.9 [facility] Glomerular filtration rate ( GFR) estimation/1.73 sq m using serum, plasma, or whole bOrdered By: Nicolleelissa Pacheco on 02-01-2025 GFR/1.73 sq M.predicted among non-blacks MDRD (S/P/Bld) [Vol rate/Area] 64 mL/min/{1.73_m2} >60 [facility] Comment on above: mL/min/1.73m2 CKD-EP I Creatinine Equation (2020) Hematocrit Auto (Bld) [Volum e fraction]Ordered By: Nicolle Pacheco on 02-01-2025 Hematocrit (Bld) [Volume fraction] 42.1 % 37-47 [facility] Hemoglobin measurementOrdere d By: Nicolle Pacheco on 02-01-2025 Hemoglobin (Bld) [Mass/Vol] 13.4 g/dL 12.0-15.0 [facility] Immature granulocytes/100 WB C Auto (Bld)Ordered By: Nicolle Pacheco on 02-01-2025 Immature granulocytes/100 WBC (Bld) 0.200 % 0.0-0.9 [facility] Comment on above: IG% - Immature Granu locytes (promyelocytes, myelocytes and metamyelocytes) > 1% indicates that a LEFT SHIFT is Present. LDL calc ser/plasOrdered By: Nicolle Pacheco on 02-01-2025 Cholesterol in LDL [Mass/Vol] 142 mg/dL [facility] Comment on above: Gqfwcrtdbx=438-043 m g/dL & Higher Llbn=213 mg/dL or greater Laboratory - Chemistry and C hemistry - challengeOrdered By: Nicolle Pacheco on 02-01-2025 AST [Catalytic activity/Vol] 29 U/L <32 [facility] Lipid Profileon 02-01-2025 CHOL:HDL 4.09 Normal [facility] Comment on above: Performed By: #### L 501.9520, L100.0100, L506.0400, L500.4100, L500.4050 #### [facility] [address] [facility] [place], [address] Cholesterol [Mass/Vol] 205 mg/dL High <=200 [facility] Comment on above: Result Comment: Chol esterol level, Desirable <200 mg/dL Borderline high cholesterol 200-239 mg/dL High cholesterol >=240 mg/dL Recommendations of the NCEP Adult Treatment Panel for the following risk-cutoff thresholds for the [place] population. Performed By: #### L 501.9520, L100.0100, L506.0400, L500.4100, L500.4050 #### [facility] [address] [place], [address] Cholesterol in HDL [Mass/Vol] 50 mg/dL Normal [facility] Comment on above: Result Comment: Domonique onal Cholesterol Education Program (NCEP) guidelines: <40 mg/dL: Low HDL-cholesterol (major risk factor for CHD) >= 60 mg/dL: High HDL-cholesterol (negative risk factor for CHD) HDL-cholesterol is affected by a number of factors, e.g. smoking, exercise, hormones, sex and age. Performed By: #### L 501.9520, L100.0100, L506.0400, L500.4100, L500.4050 #### [facility] [address] [place], [address] Cholesterol in LDL [Mass/Vol] 142 mg/dL Normal [facility] Comment on above: Result Comment: Bord gmkdvt=904-668 mg/dL Higher Xjzh=911 mg/dL or greater Performed By: #### L 501.9520, L100.0100, L506.0400, L500.4100, L500.4050 #### [facility] [address] [place], [address] Cholesterol in VLDL [Mass/Vol] 13 mg/dL Normal 5-40 [facility] Comment on above: Performed By: #### L 501.9520, L100.0100, L506.0400, L500.4100, L500.4050 #### [facility] [address] [place], [address] Triglyceride [Mass/Vol] 67 mg/dL Normal [facility] Comment on above: Result Comment: The drugs N-Acetylcysteine and Metamizole may falsely depress this assay. Normal range: <150 mg/dL Borderline High: 150-199 mg/dL High: 200-499 mg/dL Very High: >500 mg/dL Performed By: #### L 501.9520, L100.0100, L506.0400, L500.4100, L500.4050 #### [facility] [address] [place], [address] MCV (mean corpuscular volume ) determinationOrdered By: Nicolle Pacheco on 02-01-2025 MCV (RBC) [Entitic vol] 97.2 fL 81-99 [facility] Mean corpuscular hemoglobin (MCH) determinationOrdered By: Nicolle Pacheco on 02-01-2025 MCH (RBC) [Entitic mass] 30.9 pg 27.0-32.0 [facility] Mean corpuscular hemoglobin concentration (MCHC) determinationOrdered By: Nicolle Pacheco on 02-01-2025 MCHC (RBC) [Mass/Vol] 31.8 g/dL Low 32-36 [facility] Mean platelet volume determi nationOrdered By: Nicolle Pacheco on 02-01-2025 Platelet mean volume (Bld) [Entitic vol] 9.1 fL 6.2-12.0 [facility] Monocyte percentageOrdered B y: Nicolle Pacheco on 02-01-2025 Monocytes/100 WBC (Bld) 11.0 % High 0-10 [facility] Neutrophil percentageOrdered By: Nicolle Pacheco on 02-01-2025 Neutrophils/100 WBC (Bld) 42.6 % Low 47-70 [facility] Nucleated red blood cell per centageOrdered By: Nicolle Pacheco on 02-01-2025 Nucleated RBC/100 WBC (Bld) [Ratio] 0 % 0-5 [facility] Platelet countOrdered By: Ra lisa Pacheco on 02-01-2025 Platelets (Bld) [#/Vol] 298 10*3/uL 150-450 [facility] Potassium measurement (mass/ volume)Ordered By: Nicolle Pacheco on 02-01-2025 Potassium (Unsp spec) [Mass/Vol] 4.2 mmol/L 3.3-5.1 [facility] RBC Auto (Bld) [#/Vol]Ordere d By: Nicolle Pacheco on 02-01-2025 RBC (Bld) [#/Vol] 4.33 10*6/uL 4.2-5.4 [facility] Screening total cholesterol/ high density lipoprotein (HDL) cholesterol ratioOrdered By: Nicolle Pacheco on 02-01-2025 Cholesterol.total/Chol esterol in HDL [Mass ratio] 4.09 {ratio} [facility] Serum creatinine measurement (mass/volume)Ordered By: Nicolle Pacheco on 02-01-2025 Creatinine [Mass/Vol] 0.91 mg/dL 0.70-1.20 [facility] Serum globulin measurementOr dered By: Nicolle Pacheco on 02-01-2025 Globulin (S) [Mass/Vol] 2.7 g/dL 2.2-4.2 [facility] Serum glucose measurement (m ass/volume)Ordered By: Nicolle Pacheco on 02-01-2025 Glucose [Mass/Vol] 93 mg/dL 70-99 [facility] Serum or plasma alanine ward otransferase (ALT) measurementOrdered By: Nicolle Pacheco on 02-01-2025 ALT [Catalytic activity/Vol] 16 U/L <35 [facility] Serum or plasma albumin milton urement (mass/volume)Ordered By: Nicolle Pacheco on 02-01-2025 Albumin [Mass/Vol] 4.3 g/dL 3.4-4.8 [facility] Serum or plasma albumin/glob ulin mass ratioOrdered By: Nicolle Pacheco on 02-01-2025 Albumin/Globulin [Mass ratio] 1.6 {ratio} 0.9-2.4 [facility] Serum or plasma alkaline neena sphatase measurementOrdered By: Nicolleelissa Pacheco on 02-01-2025 ALP [Catalytic activity/Vol] 84 U/L 35-104 [facility] Serum or plasma calcium milton urement (mass/volume)Ordered By: Nicolle Pacheco on 02-01-2025 Calcium [Mass/Vol] 10.1 mg/dL 7.6-11.0 [facility] Serum or plasma cholesterol in HDL measurement (mass/volume)Ordered By: Nicolle Pacheco on 02-01-2025 Cholesterol in HDL [Mass/Vol] 50 mg/dL >40 [facility] Comment on above: National Cholesterol Education Program (NCEP) guidelines:<40 mg/dL: Low HDL-cholesterol (major risk factor for CHD)>= 60 mg/dL: High HDL-cholesterol (negative risk factor for CHD)HDL-cholesterol is affected by a number of factors, e.g. smoking, exercise, hormones, sex and age. Serum or plasma cholesterol measurement (mass/volume)Ordered By: Nicolle Pacheco on 02-01-2025 Cholesterol [Mass/Vol] 205 mg/dL High <201 [facility] Comment on above: Cholesterol level, D esirable <200 mg/dLBorderline high cholesterol 200-239 mg/dLHigh cholesterol >=240 mg/dLRecommendations of the NCEP Adult Treatment Panel for the following risk-cutoff thresholds for the [place] population. Serum or plasma urea nitroge n measurement (mass/volume)Ordered By: Nicolle Pacheco on 02-01-2025 Urea nitrogen [Mass/Vol] 19 mg/dL 4-19 [facility] Sodium levelOrdered By: Lovely Pacheco on 02-01-2025 Sodium [Moles/Vol] 141 mmol/L 133-145 [facility] T4 Free Directon 02-01-2025 T4 FREE DIRECT 1.00 ng/dL Normal 0.76-1.46 [facility] Comment on above: Performed By: #### L 501.9520, L100.0100, L506.0400, L500.4100, L500.4050 #### [facility] [address] [place], [place], [id number] T4 freeOrdered By: Nicolle barrios on 02-01-2025 Free T4 [Mass/Vol] 1.00 ng/dL 0.76-1.46 [facility] TSH DL <= 0.005 mIU/L QnOrde red By: Nicolle Pacheco on 02-01-2025 TSH Qn 1.390 uIU/mL 0.300-4.200 [facility] Thyroid Stim Hormone (TSH)on 02-01-2025 TSH 1.390 uIU/mL Normal 0.300-4.200 [facility] Comment on above: Performed By: #### L 501.9520, L100.0100, L506.0400, L500.4100, L500.4050 #### [facility] [address] [place], [place], [id number] Total proteinOrdered By: Yolette Pacheco on 02-01-2025 Protein [Mass/Vol] 6.9 g/dL 5.9-8.4 [facility] Triglycerides measurementOrd ered By: Nicolle Pacheco on 02-01-2025 Triglyceride [Mass/Vol] 67 mg/dL <199 [facility] Comment on above: The drugs N-Acetylcy steine and Metamizole may falsely depress this assay. Normal range: <150 mg/dLBorderline High: 150-199 mg/dLHigh: 200-499 mg/dLVery High: >500 mg/dL White blood cell (WBC) count Ordered By: Nicolle Pacheco on 02-01-2025 WBC (Bld) [#/Vol] 5.2 10*3/uL 4.4-11.0 [facility] Urine Cultureon 01-26-2025 [facility] Presumptive E. coli Cornell Count 80,000-100,000 Presumptive E. coli: REACTION Ampicillin Islt NATHANIEL >=32 Ampicillin+Sulbac Islt NATHANIEL 16 I Cefepime Islt NATHANIEL <=0.12 S cefTRIAXone Islt NATHANIEL <=0.25 S Ciprofloxacin Islt NATHANIEL <=0.06 S B-Lactamase Extended Susc Islt NEG Gentamicin Islt NATHANIEL >=16 R levoFLOXacin Islt NATHANIEL <=0.12 S Meropenem Islt NATHANIEL <=0.25 S Nitrofurantoin Islt NATHANIEL >=512 R Pip+Tazo Islt NATHANIEL <=4 S TMP SMX Islt NATHANIEL >=320 R Normal [facility] Comment on above: Performed By: #### L 501.9520, L100.0100, L506.0400, L500.4100, L500.4050 #### [facility] [address] [place] [address], [id number] Urine cultureOrdered By: Mitchell Schaffer on 01-24-2025 Bacteria identified Cx Nom (U) Presumptive E. coli Abnormal [facility] Laboratory - Chemistry and C hemistry - challengeOrdered By: Fouzia Schaffer on 01-22-2025 Bilirubin Ql (U) Small (1+) [facility] Glucose Ql (U) Negative [facility] Ketones Ql (U) Negative [facility] pH (U) 6.0 [pH] [facility] Specific gravity (U) [Rel density] 1.020 [facility] Urobilinogen (U) [Mass/Vol] Negative [facility] - Hematology and Cell countsOrdered By: Fouzia Schaffer on 01-22-2025 Hemoglobin Ql (U) Negative [facility] - Specimen inform ationOrdered By: Fouzia Schaffer on 01-22-2025 Clarity (U) Clear [facility] Color (U) Dk Yellow [facility] - UrinalysisOrder ed By: Fouzia Schaffer on 01-22-2025 Nitrite Ql (U) Positive [facility] Protein Ql (U) Trace [facility] No Panel InformationOrdered By: Fouzia Schaffer on 01-22-2025 Urine Leukocytes Positive [facility] Urine Non-Hemolyzed Blood Negative [facility] Urgent Care Visit Reporton 0 01-22-2025 Urgent Care Visit Report [facility] [address], [address] [place] [address] OFFICE VISIT Date of Service: 01/22/25 MR#: [id number] Acct: [id number] Name: CAROL GRIMM Rep #: [id number] : 1945 Provider: DEVANG Schaffer Age/Sex: 79/F Location: [facility] Status: Signed Intake Vital Signs 01/22/25 10:10 Height 5 ft 3 in Weight: 164 lb 6 oz BMI 29.1 BP 152/82 H Blood Pressure Location Lt brachial Position Sitting Respiration 16 Pulse 80 Pulse Source NIBP Temp 98.0 F Temp Source Oral Pulse Oximetry (%) 98 Oxygen Delivery Method room air Intake Visit Reasons: Urinary tract infection Chief Complaint: pubic pressure, freqauency Facility Specialist Required: No Is patient in pain?: No Allergies No Known Allergies Allergy (Verified 01/22/25 10:29) Medications ???Medication ???Instructions ???Recorded ???Confirmed ???Type latanoprost 0.005 % eye drops 1 drp ophthalmic (eye) QHS 2 5 01/22/25 History levothyroxine 88 mcg tablet 88 mcg PO QDAY 01/22/25 01/22/25 H istory (Synthroid) nitrofurantoin 100 mg PO Q12H 5 days #10 caps 01/22/25 Rx monohydrate/macrocrystals 100 mg capsule (Macrobid) Is last menstrual period known: No Post menopausal: Yes Patient : No Have you fallen in the past year?: No Nurse's Note: pubic pressure, frequency intermittently x 48 hours. denies back pain, fever. concern for UTI PFSH Medical History (Updated 01/22/25 @ 10:09 by Dipika Lloyd) Hypothyroidism Glaucoma Surgical History (Updated 01/22/25 @ 10:09 by Dipika Lloyd) History of knee replacement Social History (Updated 01/22/25 @ 10:09 by Dipika Lloyd) Smoking Status: Never smoker alcohol intake: never substance use type: does not use HPI HPI Chief Complaint: pubic pressure, freqauency Details: CAROL GRIMM, is a 79 F who presents to the office today for ? uti -sx started unsure- urinary frequency and pressure. No pain, urgency- denies abd pain -+chills -denies any blood or discharge -water- increased recently but probably does not drink enough ROS Const Constitutional: Positive for other (ROS negative x6 except what was placed in HPI) Exam Const General: cooperative and no acute distress Orientation: alert and oriented x3 Resp Effort Inspection: normal respiratory effort, able to speak in complete sentences and symmetric chest movement Auscultation: Bilateral: Clear to Auscultation, Left: Clear to Auscultation and Right: Clear to Auscultation Cardio Rate: regular rate Rhythm: regular rhythm Heart Sounds: S1 normal and S2 normal GI Auscultation: normal bowel sounds Palpation: soft and no hepatosplenomegaly Other: -no abd pain/tenderness with palpation Other: -no CVA tenderness/no pelvic pain/pressure with palpation Neuro General: patient alert, patient awake and patient oriented x3 Extrem General: normal to inspection and full ROM Psych Appearance: grossly normal Mental Status: mental status grossly normal Attitude: cooperative Thought Process: normal Thought Content: normal Judgment: judgment good Results POC Urinalysis Dip (Clinic) Office Urine Color Dk Yellow Last Edit by Dipika Lloyd on 01/22/25 10:24 Office Urine Clarity Clear Last Edit by Dipiak Lloyd on 01/22/25 10:24 Office Urine Glucose Negative Last Edit by Dipika Lloyd on 01/22/25 10:24 Office Urine Ketones Negative Last Edit by Dipika Lloyd on 01/22/25 10:24 Off Ur Spec Carroll 1.020 Last Edit by Dipika Lloyd on 01/22/25 10:24 Office Urine pH 6.0 Last Edit by Dipika Lloyd on 01/22/25 10:24 Office Urine Bilirubin Small (1+) Last Edit by Dipika Lloyd on 01/22/25 10:24 Office Urine Urobilinogen Negative Last Edit by Dipika Lloyd on 01/22/25 10:24 Office Urine Blood Negative Last Edit by Dipika Lloyd on 01/22/25 10:24 Office Urine Blood Hemolyzed Negative Last Edit by Dipika Lloyd on 01/22/25 10:24 Office Urine Protein Trace Last Edit by Dipika Lloyd on 01/22/25 10:24 Office Urine Nitrate Positive Last Edit by Dipika Lloyd on 01/22/25 10:24 Off Ur Leukocytes Positive Last Edit by Dipika Lloyd on 01/22/25 10:24 Coding Level of Care Code Off vis,new,level 3 Diagnoses Acute cystitis without hematuria N30.00 Urinary tract infection type: acute cystitis Hematuria presence: without hematuria Assessment and Plan Assessment and Plan (1) Urinary tract infection: Qualifiers: Urinary tract infection type: acute cystitis Hematuria presence: without hematuria Qualified Code(s): N30.00 - Acute cystitis without hematuria Plan: Take full course of antibiotic even if feeling better. To prevent GI upset/yeast infection eat a yogurt daily or take an otc probiotic Increase fluid intake. P (more content not included)... Normal [facility] BI MAMMO BILATERAL SCREENING TOMOSYNTHESISon 09-13-2024 BI MAMMO BILATERAL SCREENING TOMOSYNTHESIS Interpreted By: Godwin Yoder, STUDY: BI MAMMO BILATERAL SCREENING TOMOSYNTHESIS; 09/13/2024 7:48 am ACCESSION NUMBER(S): [id number] ORDERING CLINICIAN: INTERFACE UNSPECIFIELDPROVIDER INDICATION: Screening. COMPARISON: Digital mammograms dated 09/12/2023 FINDINGS: CC and MLO 2D digital mammograms and digital breast tomosynthesis images were obtained of the bilateral breasts. 3-D volume images were reconstructed in 4 views at an independent workstation as 1 mm slices through the breasts in both the CC and MLO projections. Density: There are scattered areas of fibroglandular density. No discrete mass or focal asymmetry is identified. No suspicious microcalcifications or foci of architectural distortion are seen. There has been no significant change. This study was interpreted with CAD. IMPRESSION: No mammographic evidence of malignancy. BI-RADS CATEGORY: BI-RADS Category: 1 Negative. Recommendation: Annual Screening. Recommended Date: 1 Year. Laterality: Bilateral. MACRO: None Signed by: Godwin Yoder 09/13/2024 9:57 AM Dictation workstation: [id number] [facility] DBT Breast - bilateralon No mammographic evid ence of malignancy. BI-RADS CATEGORY: BI-RADS Category: 1 Negative. Recommendation: Annual Screening. Recommended Date: 1 Year. Laterality: Bilateral. MACRO: None Signed by: Godwin Yoder 09/13/2024 9:57 AM Dictation workstation: [id number] [facility] MMODAL Interpreted By: Godwin Houser, STUDY: BI MAMMO BILATERAL SCREENING TOMOSYNTHESIS; 09/13/2024 7:48 am ACCESSION NUMBER(S): [id number] ORDERING CLINICIAN: INTERFACE UNSPECIFIELDPROVIDER INDICATION: Screening. COMPARISON: Digital mammograms dated 09/12/2023 FINDINGS: CC and MLO 2D digital mammograms and digital breast tomosynthesis images were obtained of the bilateral breasts. 3-D volume images were reconstructed in 4 views at an independent workstation as 1 mm slices through the breasts in both the CC and MLO projections. Density: There are scattered areas of fibroglandular density. No discrete mass or focal asymmetry is identified. No suspicious microcalcifications or foci of architectural distortion are seen. There has been no significant change. This study was interpreted with CAD. [facility] MM[facility]AL Godwin Yoder MD - 09/13/2024 Interpreted By: Godwin Yoder, STUDY: BI MAMMO BILATERAL SCREENING TOMOSYNTHESIS; 09/13/2024 7:48 am ACCESSION NUMBER(S): [id number] ORDERING CLINICIAN: INTERFACE UNSPECIFIELDPROVIDER INDICATION: Screening. COMPARISON: Digital mammograms dated 09/12/2023 FINDINGS: CC and MLO 2D digital mammograms and digital breast tomosynthesis images were obtained of the bilateral breasts. 3-D volume images were reconstructed in 4 views at an independent workstation as 1 mm slices through the breasts in both the CC and MLO projections. Density: There are scattered areas of fibroglandular density. No discrete mass or focal asymmetry is identified. No suspicious microcalcifications or foci of architectural distortion are seen. There has been no significant change. This study was interpreted with CAD. IMPRESSION: No mammographic evidence of malignancy. BI-RADS CATEGORY: BI-RADS Category: 1 Negative. Recommendation: Annual Screening. Recommended Date: 1 Year. Laterality: Bilateral. MACRO: None Signed by: Godwin Yoder 09/13/2024 9:57 AM Dictation workstation: [id number] [facility] Work Phone: Radiology Study observation (narrative) [facility] Work Phone: DBT Breast - bilateralOrdere d By: Godwin Yoder on 09-13-2024 [facility] Work Phone: CBC W/Diff, Automatedon 11- Absolute Lymph 1.86 X10 3/uL Normal 0.83-4.51 [facility] Comment on above: Performed By: #### L 100.0100, L500.4100, L501.9520, L500.4050, L506.0400 #### [facility] [address] [place], [place], [id number] Absolute Neut 2.3 X10 3/uL Normal 2.0-7.7 [facility] Comment on above: Performed By: #### L 100.0100, L500.4100, L501.9520, L500.4050, L506.0400 #### [facility] [address] [place], [address] Basophils/100 WBC (Bld) 0.6 % Normal 0-1 [facility] Comment on above: Performed By: #### L 100.0100, L500.4100, L501.9520, L500.4050, L506.0400 #### [facility] [address] [place], [address] Eosinophils/100 WBC (Bld) 3.4 % Normal 0-5 [facility] Comment on above: Performed By: #### L 100.0100, L500.4100, L501.9520, L500.4050, L506.0400 #### [facility] [address] [place], [address] Erythrocyte distribution width (RBC) [Ratio] 14.0 % Normal 11.6-14.6 [facility] Comment on above: Performed By: #### L 100.0100, L500.4100, L501.9520, L500.4050, L506.0400 #### [facility] [address] [place], [address] Hematocrit (Bld) [Volume fraction] 43.4 % Normal 37-47 [facility] Comment on above: Performed By: #### L 100.0100, L500.4100, L501.9520, L500.4050, L506.0400 #### [facility] [address] [place], [address] Hemoglobin (Bld) [Mass/Vol] 13.7 g/dL Normal 12.0-15.0 [facility] Comment on above: Performed By: #### L 100.0100, L500.4100, L501.9520, L500.4050, L506.0400 #### [facility] [address] [place], [address] IG% 0.200 Normal 0.0-0.9 [facility] Comment on above: Result Comment: IG% - Immature Granulocytes (promyelocytes, myelocytes and metamyelocytes) > 1% indicates that a LEFT SHIFT is Present. Performed By: #### L 100.0100, L500.4100, L501.9520, L500.4050, L506.0400 #### [facility] [address] [place], [address] Lymphocytes/100 WBC (Bld) 37.5 % Normal 19-41 [facility] Comment on above: Performed By: #### L 100.0100, L500.4100, L501.9520, L500.4050, L506.0400 #### [facility] [address] [place], [address] MCH (RBC) [Entitic mass] 31.0 pg Normal 27.0-32.0 [facility] Comment on above: Performed By: #### L 100.0100, L500.4100, L501.9520, L500.4050, L506.0400 #### [facility] [address] [place], [address] MCHC (RBC) [Mass/Vol] 31.6 g/dL Low 32-36 [facility] Comment on above: Performed By: #### L 100.0100, L500.4100, L501.9520, L500.4050, L506.0400 #### [facility] [address] [place], [address] MCV (RBC) [Entitic vol] 98.2 fL Normal 81-99 [facility] Comment on above: Performed By: #### L 100.0100, L500.4100, L501.9520, L500.4050, L506.0400 #### [facility] [address] [place], [address] Monocytes/100 WBC (Bld) 11.3 % High 0-10 [facility] Comment on above: Performed By: #### L 100.0100, L500.4100, L501.9520, L500.4050, L506.0400 #### [facility] [address] [place], [address] Neutrophils/100 WBC (Bld) 47.0 % Normal 47-70 [facility] Comment on above: Performed By: #### L 100.0100, L500.4100, L501.9520, L500.4050, L506.0400 #### [facility] [address] [place], [address] Nucleated RBC (Bld) [#/Vol] 0 10*3/uL Normal 0-5 [facility] Comment on above: Performed By: #### L 100.0100, L500.4100, L501.9520, L500.4050, L506.0400 #### [facility] [address] [place], [address] Platelet mean volume (Bld) [Entitic vol] 9.3 fL Normal 6.2-12.0 [facility] Comment on above: Performed By: #### L 100.0100, L500.4100, L501.9520, L500.4050, L506.0400 #### [facility] [address] [place], [address] Platelets (Bld) [#/Vol] 276 10*3/uL Normal 150-450 [facility] Comment on above: Performed By: #### L 100.0100, L500.4100, L501.9520, L500.4050, L506.0400 #### [facility] [address] [place], [address] RBC (Bld) [#/Vol] 4.42 10*6/uL Normal 4.2-5.4 [facility] Comment on above: Performed By: #### L 100.0100, L500.4100, L501.9520, L500.4050, L506.0400 #### [facility] [address] [place], [address] RDW SD 50.9 fl High 35.1-43.9 [facility] Comment on above: Performed By: #### L 100.0100, L500.4100, L501.9520, L500.4050, L506.0400 #### [facility] [address] [place], [address] WBC (Bld) [#/Vol] 5.0 10*3/uL Normal 4.4-11.0 [facility] Comment on above: Performed By: #### L 100.0100, L500.4100, L501.9520, L500.4050, L506.0400 #### [facility] [address] [place], [address] Comprehensive Metabolic Prof ilon 08-17-2024 Albumin [Mass/Vol] 3.9 g/dL Normal 3.2-5.0 [facility] Comment on above: Performed By: #### L 100.0100, L500.4100, L501.9520, L500.4050, L506.0400 #### [facility] [address] [place], [address] Albumin/Globulin [Mass ratio] 1.2 {ratio} Normal 0.9-2.4 [facility] Comment on above: Performed By: #### L 100.0100, L500.4100, L501.9520, L500.4050, L506.0400 #### [facility] [address] [place], [address] ALK P 84 U/L Normal 45-117 [facility] Comment on above: Performed By: #### L 100.0100, L500.4100, L501.9520, L500.4050, L506.0400 #### [facility] [address] [place], [address] ALT [Catalytic activity/Vol] 22 U/L Normal 13-56 [facility] Comment on above: Performed By: #### L 100.0100, L500.4100, L501.9520, L500.4050, L506.0400 #### [facility] [address] [place], [address] AST [Catalytic activity/Vol] 28 U/L Normal 15-37 [facility] Comment on above: Performed By: #### L 100.0100, L500.4100, L501.9520, L500.4050, L506.0400 #### [facility] [address] [place], [address] Bilirubin [Mass/Vol] 0.50 mg/dL Normal 0.20-1.00 [facility] Comment on above: Result Comment: For patients on eltrombopag therapy, use of Dimension [place] TBIL is not recommended. Performed By: #### L 100.0100, L500.4100, L501.9520, L500.4050, L506.0400 #### [facility] [address] [place], [address] BUN/CRE 29.6 RATIO High 10-20 [facility] Comment on above: Performed By: #### L 100.0100, L500.4100, L501.9520, L500.4050, L506.0400 #### [facility] [address] [place], [address] CA,Total 9.3 mg/dL Normal 8.5-10.1 [facility] Comment on above: Performed By: #### L 100.0100, L500.4100, L501.9520, L500.4050, L506.0400 #### [facility] [address] [place], [address] Chloride [Moles/Vol] 110 mmol/L High 98-107 [facility] Comment on above: Performed By: #### L 100.0100, L500.4100, L501.9520, L500.4050, L506.0400 #### [facility] [address] [place], [address] CO2 [Moles/Vol] 27.0 mmol/L Normal 21.0-32.0 [facility] Comment on above: Performed By: #### L 100.0100, L500.4100, L501.9520, L500.4050, L506.0400 #### [facility] [address] [place], [address] Creatinine [Mass/Vol] 0.84 mg/dL Normal 0.55-1.02 [facility] Comment on above: Result Comment: The validity of the calculated GFR GFRAA in patients over 70 years has not been determined. Clinical correlation is essential. Performed By: #### L 100.0100, L500.4100, L501.9520, L500.4050, L506.0400 #### [facility] [address] [place], [address] EST GFR - AA 84 mL/min Normal >60 [facility] Comment on above: Result Comment: Afri can Faro[place] GFR Calc Performed By: #### L 100.0100, L500.4100, L501.9520, L500.4050, L506.0400 #### [facility] [address] [place], [address] GAP 4 Low 5-15 [facility] Comment on above: Performed By: #### L 100.0100, L500.4100, L501.9520, L500.4050, L506.0400 #### [facility] [address] [place], [address] GFR/1.73 sq M.predicted among non-blacks MDRD (S/P/Bld) [Vol rate/Area] 69 mL/min/{1.73_m2} Normal >60 [facility] Comment on above: Result Comment: Non- GFR Calc Performed By: #### L 100.0100, L500.4100, L501.9520, L500.4050, L506.0400 #### [facility] [address] [place], [address] Globulin (S) [Mass/Vol] 3.2 g/dL Normal 2.2-4.2 [facility] Comment on above: Performed By: #### L 100.0100, L500.4100, L501.9520, L500.4050, L506.0400 #### [facility] [address] [place], [address] Glucose [Mass/Vol] 91 mg/dL Normal 74-106 [facility] Comment on above: Performed By: #### L 100.0100, L500.4100, L501.9520, L500.4050, L506.0400 #### [facility] [address] [place], [address] Potassium [Moles/Vol] 4.7 mmol/L Normal 3.5-5.1 [facility] Comment on above: Performed By: #### L 100.0100, L500.4100, L501.9520, L500.4050, L506.0400 #### [facility] [address] [place], [address] Sodium [Moles/Vol] 141 mmol/L Normal 136-145 [facility] Comment on above: Performed By: #### L 100.0100, L500.4100, L501.9520, L500.4050, L506.0400 #### [facility] [address] [place], [address] T PROT 7.1 g/dL Normal 6.4-8.2 [facility] Comment on above: Performed By: #### L 100.0100, L500.4100, L501.9520, L500.4050, L506.0400 #### [facility] [address] [place], [address] Urea nitrogen [Mass/Vol] 25 mg/dL High 7-18 [facility] Comment on above: Performed By: #### L 100.0100, L500.4100, L501.9520, L500.4050, L506.0400 #### [facility] [address] [place], [address] Lipid Profileon 08-17-2024 Cholesterol [Mass/Vol] 227 mg/dL High 200 [facility] Comment on above: Result Comment: <200 mg/dL Desirable 200-240 mg/dL Borderline >240 mg/dL High Risk Performed By: #### L 100.0100, L500.4100, L501.9520, L500.4050, L506.0400 #### [facility] [address] [place], [address] Cholesterol in HDL [Mass/Vol] 60 mg/dL Normal [facility] Comment on above: Result Comment: The drugs N-Acetylcysteine and Metamizole may falsely depress this assay. Reference Range HDL <40 mg/dL Low HDL Cholesterol HDL >or= 60 mg/dL High HDL Cholesterol Performed By: #### L 100.0100, L500.4100, L501.9520, L500.4050, L506.0400 #### [facility] [address] [place], [address] Cholesterol in LDL [Mass/Vol] 155 mg/dL High 0-130 [facility] Comment on above: Performed By: #### L 100.0100, L500.4100, L501.9520, L500.4050, L506.0400 #### [facility] [address] [place], [address] Cholesterol in VLDL [Mass/Vol] 12 mg/dL Normal 5-40 [facility] Comment on above: Performed By: #### L 100.0100, L500.4100, L501.9520, L500.4050, L506.0400 #### [facility] [address] [place], [address] Triglyceride [Mass/Vol] 61 mg/dL Normal [facility] Comment on above: Result Comment: The drugs N-Acetylcysteine and Metamizole may falsely depress this assay. Serum Triglycerides Reference Interval Normal <150 mg/dL Borderline high 150 - 199 mg/dL High 200 - 499 mg/dL Very High > or = 500 mg/dL Performed By: #### L 100.0100, L500.4100, L501.9520, L500.4050, L506.0400 #### [facility] [address] [place], [address] T4 Free Directon 08-17-2024 T4 FREE DIRECT 1.01 ng/dL Normal 0.76-1.46 [facility] Comment on above: Performed By: #### L 100.0100, L500.4100, L501.9520, L500.4050, L506.0400 #### [facility] [address] [place], [address] Thyroid Stim Hormone (TSH)on 08-17-2024 TSH 1.150 uIU/mL Normal 0.358-3.740 [facility] Comment on above: Performed By: #### L 100.0100, L500.4100, L501.9520, L500.4050, L506.0400 #### [facility] [address] [place], [address] No Panel InformationOrdered By: Nicolle Pacheco on 02-03-2024 Free Triiodothyronine (T3) pg/dL 2.8 pg/mL 2.18-3.98 [facility] Thyroglobulin Antibody < 1.0 IU/mL 0.0-0.9 [facility] Comment on above: Thyroglobulin Antibo dy measured by VikiMethodologyIt should be noted that the presence of thyroglobulinantibodies may not be pathogenic nor diagnostic, especiallyat very low levels. The assay die cut operator has found thatfour percent of individuals without evidence of thyroiddisease or autoimmunity will have positive TgAb levels upto 4 IU/mL.Performed at: [address] [id number] Director: Branden Puckett PhD, Phone: [phone] Serum or plasma thyroid stim ulating hormone (TSH) measurement (units/volume)Ordered By: Nicolle Pacheco on 02-03-2024 TSH Qn 0.14 uIU/mL 0.358-3.74 [facility] Serum or plasma thyroperoxid ase antibody assay (units/volume)Ordered By: Nicolle Pacheco on 02-03-2024 TPO Ab Qn 12 [IU]/mL 0-34 [facility] Thin prep Papanicolaou smear with manual screeningOrdered By: Nicolle Pacheco on 02-03-2024 Thin prep Papanicolaou smear with manual screening 1.29 ng/dL 0.76-1.46 [facility] IO UA (automated w/o microsc opy)on 11-27-2022 Protein (U) [Mass/Vol] Negative MP -Urology-A [employer] Work Phone: IO UA (automated w/o microscopy) (+)small - 15 QC-Jcrpnez-Y [employer] Work Phone: IO UA (automated w/o microscopy) Positive CO-Ijwlrpq-L [employer] Work Phone: IO UA (automated w/o microscopy) Normal (0.2-1.0 mg/dl) MP-Urolog y-A [employer] Work Phone: IO UA (automated w/o microscopy) 5.5 1 TM-Mqkvfps-F [employer] Work Phone: IO UA (automated w/o microscopy) Negative LZ-Bmemctm-Q [employer] Work Phone: IO UA (automated w/o microscopy) 1.030 1 OE-Dxcnzeo-M [employer] Work Phone: IO UA (automated w/o microscopy) Cloudy HN-Egvnkrp-I [employer] Work Phone: IO UA (automated w/o microscopy) Yared FJ-Kyicyyp-G [employer] Work Phone: Office Visit (Urology)on Follow-up visit Diagnoses/Problems Assessed History of UTI (V13.02) (Z87.440) Never a smoker Nocturia (788.43) (R35.1) EMERITA (stress urinary incontinence, female) (625.6) (N39.3) Patient Discussion/Summary Treatment options for LUTS reviewed Discussed timed voiding. Discussed fluid and caffeine intake Pelvic floor exercises discussed. Pros/cons of PT discussed.. Questions answered Lifestyle change to help prevent UTIs discussed. Encouraged fluid intake. UA reviewed-No Sx Change Prophylaxis to Macrodantin 50mg QD F/u 1 year Chief Complaint Yearly History of Present IllnessPatient is here for yearly f/u for chronic hx of UTI'S. No recent sx. She is taking Trimethoprim daily. Chronic LUT'S sx are mild and stable. Denies urgency and frequency. Denies dysuria. Denies hematuria. Nocturia x1. No medication for LUT'S. EMERITA sx are minimal. Review of Systems Constitutional: No fever, No chills. Eye: Negative. Ear/Nose/Mouth/Throat: Negative. Respiratory: No shortness of breath, No cough. Cardiovascular: No chest pain, No peripheral edema. Gastrointestinal: No nausea, Genitourinary: Negative except as documented in history of present illness. Hematology/Lymphatics: Patient denies being on blood thinners.. Endocrine: Negative. Immunologic: Not immunocompromised. Musculoskeletal: Negative Integumentary: Negative. Neurologic: Alert and oriented X4. Psychiatric: Negative. Active Problems Problems Abnormality of gait (781.2) (R26.9) Acute pain of right knee (719.46) (M25.561) Acute UTI (599.0) (N39.0) Chronic pain of right knee (719.46,338.29) (M25.561,G89.29) Closed fracture of left tibial plateau, initial encounter (823.00) (S82.142A) Closed nondisplaced transverse fracture of left patella, initial encounter (822.0) (S82.035A) History of UTI (V13.02) (Z87.440) Nocturia (788.43) (R35.1) Stiffness of right knee, not elsewhere classified (719.56) (M25.661) EMERITA (stress urinary incontinence, female) (625.6) (N39.3) Surgical History Problems History of Bladder surgery History of Cataract surgery History of Cholecystectomy History of Colonoscopy History of Knee replacement History of Tubal ligation Family History Mother Family history of cardiac disorder (V17.49) (Z82.49) Sister Family history of depression (V17.0) (Z81.8) Family history of hyperlipidemia (V18.19) (Z83.438) Family history of hypertension (V17.49) (Z82.49) Social History Problems Never a smoker Allergies Medication No Known Drug Allergies Recorded By: Yael Lu; 10/29/2019 8:57:04 AM Current Meds Medication NameInstruction Latanoprost 0.005 % Ophthalmic Solution Levothyroxine Sodium TABS Trimethoprim 100 MG Oral TabletTake 1 tablet daily Vitals Vital Signs Recorded: [id number] 08:39AM Heart Rate87 Vvlupxom606 Rnqchsvru43 Rbhhtp026 lb 0.4 oz BMI Rfsvvvgnya01.07 kg/m2 BSA Calculated1.71 Tobacco Useb) No PHQ-2 Patient Declined/Screening not indicatedYes Falls Screening (Age 18+)a) No falls within the last year Physical Exam A/O x 3 in No apparent distress Constitutional: General appearance normal Respiratory: Respiratory effort is normal Gastrointestinal:Abdomen is not tender Genitourinary: Kidneys: Not palpable Bilaterally Bladder: Not palpable or tender Signatures Electronically signed by : Sharan Mead II, MD; Nov 27 2022 8:48AM EST (Author) Normal [employer] Tobacco Screening.on 023 Fall risk assessment a) No falls within the last year SW-[id number] [employer] Work Phone: Tobacco use status CPHS b) No NB-[id number]-S [employer] Work Phone: Tobacco Screening. Yes MP-Uro logy-A [employer] Work Phone: DIGITAL MAMM SCREENING W/ TO Leo 03-29-2022 DIGITAL MAMM SCREENING W/ JENNA Patient Name: CAROL GRIMM STUDY: DIGITAL MAMM SCREENING W/ JENNA; 03/29/2022 10:01 am ACCESSION NUMBER(S): [id number] ORDERING CLINICIAN: MADHAV SALAZAR INDICATION: Screening. COMPARISON: 05/20/2019, 04/29/2017 FINDINGS: 2D and tomosynthesis images were reviewed at 1 mm slice thickness. The breast tissue is almost entirely fatty. No suspicious masses or calcifications are identified. CAD was utilized. IMPRESSION: No mammographic evidence of malignancy. BI-RADS CATEGORY: Category: 1 - Negative. Recommendation: 1 Year Screening. For any future breast imaging appointments, please call [phone]). Electronically signed by: HERVE GONZALEZ MD [facility] Established Visit (Orthopaed ic Surgery)on 03-22-2022 Established Visit (Orthopaedic Surgery) Diagnoses/Problems Assessed Closed fracture of left tibial plateau, initial encounter (823.00) (S82.142A) Closed nondisplaced transverse fracture of left patella, initial encounter (822.0) (S82.035A) Orders Closed fracture of left tibial plateau, initial encounter, Closed nondisplaced transverse fracture of left patella, initial encounter Xray Knee 1 or 2 View; Status:Hold For - Scheduling; Requested for:22Mar2022; Laterality : Left Radiologist to Determine Optimal Study : Y What are the patient's signs and symptoms? : patella and tibia fracture Provider Impressions Assessment: Left knee patella and tibial plateau fracture nondisplaced Plan: She continues to do very well and there is some increased healing of the tibial plateau fracture. She will continue activities as tolerated but being very conscious of her body and how he reacts to activity. I do feel that she can do her strengthening exercises at home and does not need therapy. She will follow-up 1 more time in 6 weeks with x-rays. Chief Complaint Non-operative follow-up) as she is 10 weeks status post closed fractures of the patella and tibial plateau of the left knee on 01/12/2022. XR series of the left knee performed today. She reports she is improving post-fractures. She did have an episode of worse pain and mild swelling after doing to much activity out of her brace and without the walker. She has since improved and has minimal complaints. She continues the therapy, however she may be released soon. History of Present Illness Patient is here today for follow-up of her left knee patella and tibial plateau fracture from 01/12/2022. She denies any major pain today or swelling. She did mention about a week and a half ago she overdid activity which flared the pain in her left knee. She does admit to a fall however does not seem to have affected her condition. She has been working on range of motion and some physical therapy however this has been limited secondary to pain flareup. No major concerns today. Review of Systems Pt denies fever, chills, chest pain, dizziness, or shortness of breath Active Problems Problems Abnormality of gait (781.2) (R26.9) Acute pain of right knee (719.46) (M25.561) Acute UTI (599.0) (N39.0) Chronic pain of right knee (719.46,338.29) (M25.561,G89.29) Closed fracture of left tibial plateau, initial encounter (823.00) (S82.142A) Closed nondisplaced transverse fracture of left patella, initial encounter (822.0) (S82.035A) History of UTI (V13.02) (Z87.440) Nocturia (788.43) (R35.1) Stiffness of right knee, not elsewhere classified (719.56) (M25.661) EMERITA (stress urinary incontinence, female) (625.6) (N39.3) Surgical History Problems History of Bladder surgery History of Cataract surgery History of Cholecystectomy History of Colonoscopy History of Knee replacement History of Tubal ligation Family History Mother Family history of cardiac disorder (V17.49) (Z82.49) Sister Family history of depression (V17.0) (Z81.8) Family history of hyperlipidemia (V18.19) (Z83.438) Family history of hypertension (V17.49) (Z82.49) Social History Problems Never a smoker Allergies Medication No Known Drug Allergies Recorded By: Yael Lu; 10/29/2019 8:57:04 AM Current Meds Medication NameInstruction HYDROcodone-Acetaminophen 5-325 MG Oral Tablet Latanoprost 0.005 % Ophthalmic Solution Levothyroxine Sodium TABS Nitrofurantoin Macrocrystal 50 MG Oral CapsuleTAKE 1 CAPSULE Daily Synthroid 100 MCG Oral Tablet Synthroid 88 MCG Oral Tablet Trimethoprim 100 MG Oral TabletTake 1 tablet daily Trimethoprim 100 MG Oral Tablet Vitals Vital Signs Recorded: 22Mar2022 08:22AM Kbrpblaqjuo01.1 F Height5 ft 4 in Jtmsck604 lb BMI Pmwyddvcfi51.46 kg/m2 BSA Calculated1.78 Tobacco Useb) No Fall Screeningb) One or more falls in the last year Physical Exam Left lower extremity is neurovascularly intact, negative tenderness around the patella, negative compression test, negative effusion, range of motion is full, mild tenderness in the proximal tibia overlying the pes anserine. Negative tibial crest tenderness Results/Data X-rays performed today see radiologist report for official readings Signatures Electronically signed by : Sahra Sharpe PA-C; Mar 22 2022 9:30AM EST (Author) Normal [facility] KNEE 1 OR 2 VIEWSon 03-22-20 22 KNEE 1 OR 2 VIEWS Patient Name: CAROL GRIMM STUDY: Left knee 2 views. INDICATION: patella and proximal tibia fracture S82.035A: Closed nondisplaced transverse fracture of left patella, initial encounter S82.142A: Closed fracture of left tibial plateau, initial encounter. COMPARISON: 02/22/2022. ACCESSION NUMBER(S): [id number] ORDERING CLINICIAN: SAHRA SHARPE FINDINGS: No acute fracture or malalignment. Redemonstration of healing medial tibial plateau and healed patellar fractures with mild sclerosis of medial tibial plateau and nonvisualization of the inferior patellar fracture line. Small knee joint effusion. Bones appear demineralized. Soft tissues are unremarkable. IMPRESSION: 1. Healing medial tibial plateau and healed inferior patellar fractures. Electronically signed by: CHELY MYERS MD Normal [facility] Radiologyon 03-22-2022 XR Knee 1 or 2 Views Please click on the link to view the study images Normal [facility] 300 Work Phone: XR Knee 1 or 2 Views Normal [facility] 300 Work Phone: Tobacco Screening.on 022 Fall risk assessment b) One or more fall s in the last year [facility] 300 Work Phone: Tobacco use status CPHS b) No [facility] 300 Work Phone: Established Visit (Orthopaed ic Surgery)on 02-22-2022 Established Visit (Orthopaedic Surgery) Diagnoses/Problems Assessed Closed fracture of left tibial plateau, initial encounter (823.00) (G75.142A) Closed nondisplaced transverse fracture of left patella, initial encounter (822.0) (C67.664A) Orders Closed fracture of left tibial plateau, initial encounter, Closed nondisplaced transverse fracture of left patella, initial encounter Xray Knee 1 or 2 View; Status:Hold For - Scheduling; Requested for:22Feb2022; Laterality : Left Radiologist to Determine Optimal Study : Y What are the patient's signs and symptoms? : patella and proximal tibia fracture Home Care Referral Evaluation and Treatment christ[facility] home is preferred. 6 weeks post fracture gentle ROM WBAT with walker for 2 weeks, then wean assess for driving help with stairs Status: Complete Done: 22Feb2022 Patient request [facility]. Spoke with Joya @ [facility] [place]. Referral order, ov note, facesheet AND insurance card faxed to [facility] AND they will contact patient to set up appointment. Labs: Must have a SN ordered to have labs drawn : No Home Health Aide: Must have ordered SN, PT or ST to have STAMPING DIE MAKER BENCH : Personal Care Drawing Box Tender: Must have ordered SN, PT or ST to have FOREIGN LANGUAGE PROFESSOR : No Occupational Therapy: Must have ordered SN, PT or ST to have OT : Eval/Treat Speech Therapy: Evaluation/Treat : No Weight Bearing Limits: (Specify) : WBAT with wakler, gentle ROM of knee Physical Therapy: Evaluation/Treatment/Home Safety Assess : Yes Follow up with specialist (provider name and phone number): : Sahra Sharpe PA-C [phone] Specific Treatment for Hernandez Management : na Per Home Care Guidelines: (hernandez management-change monthly or as needed) : No Hernandez Management: : Yes Wound Care: : No Long-Term: : No Date of Fixa-eo-Vtxr Encounter: (Must be 90 days prior to start of care, if Telehealth must be Audio/Visual). : 22Feb2022 Homebound Status Reason: : Impaired mobility, instability, balance issues Homebound Status (Patient must be homebound if they have Medicare or commercial insurance, Not required for Medicaid) : Yes Requested Start of Care Date : >48 Hours Provider Impressions Assessment: Left knee patella and tibial plateau fracture nondisplaced Plan: Today, she is doing very well we will discontinue the knee immobilizer and start gentle flexion with home therapy. Patient is homebound due to decreased ambulation secondary to the patella and proximal tibial plateau fracture. I would like her to be weightbearing as tolerated with the walker for the next 2 weeks and then wean off the walker. She is unable to drive at this time and would like therapy to assess for reaction times. She will follow-up in 4 weeks with x-rays Chief Complaint Non-operative follow-up) as she is 6 weeks status post fractures of the patella and tibial plateau of the left knee sustained on 01/12/2022. XR series of the left knee performed today. She denies any significant pain while immobilized. She removes her knee immobilizer for hygiene. History of Present Illness Patient is here today for follow-up of her left patella fracture and tibial plateau fracture that is nondisplaced on 01/12/2022. She denies any pain she is been utilizing the knee immobilizer. She has been putting weight on the leg despite toe-touch orders. Review of Systems Pt denies fever, chills, chest pain, dizziness, or shortness of breath Active Problems Problems Abnormality of gait (781.2) (R26.9) Acute pain of right knee (719.46) (M25.561) Acute UTI (599.0) (N39.0) Chronic pain of right knee (719.46,338.29) (M25.561,G89.29) Closed fracture of left tibial plateau, initial encounter (823.00) (S82.142A) Closed nondisplaced transverse fracture of left patella, initial encounter (822.0) (S82.035A) History of UTI (V13.02) (Z87.440) Nocturia (788.43) (R35.1) Stiffness of right knee, not elsewhere classified (719.56) (M25.661) EMERITA (stress urinary incontinence, female) (625.6) (N39.3) Surgical History Problems History of Bladder surgery History of Cataract surgery History of Cholecystectomy History of Colonoscopy History of Knee replacement History of Tubal ligation Family History Mother Family history of cardiac disorder (V17.49) (Z82.49) Sister Family history of depression (V17.0) (Z81.8) Family history of hyperlipidemia (V18.19) (Z83.438) Family history of hypertension (V17.49) (Z82.49) Social History Problems Never a smoker Allergies Medication No Known Drug Allergies Recorded By: Yael Lu; 10/29/2019 8:57:04 AM Current Meds Medication NameInstruction HYDROcodone-Acetaminophen 5-325 MG Oral Tablet Latanoprost 0.005 % Ophthalmic Solution Levothyroxine Sodium TABS Nitrofurantoin Macrocrystal 50 MG Oral CapsuleTAKE 1 CAPSULE Daily Synthroid 100 MCG Oral Tablet Synthroid 88 MCG Oral Tablet Trimethoprim 100 MG Oral TabletTake 1 tablet daily Trimethoprim 100 MG Oral Tablet Vitals Vital Signs R (more content not included)... Normal [employer] Falls Risk Screeningon 02-22 Fall risk assessment b) One or more fall s in the last year [facility] 300 Work Phone: Tobacco use status CPHS b) No [facility] 300 Work Phone: KNEE 1 OR 2 VIEWSon 02-23-20 KNEE 1 OR 2 VIEWS Patient Name: CAROL GRIMM STUDY: KNEE; 1 OR 2 VIEWS; 02/22/2022 9:15 am INDICATION: tibial plateau and patella nondisplaced fracture S82.035A: Closed nondisplaced transverse fracture of left patella, initial encounter. COMPARISON: 01/25/2022 ACCESSION NUMBER(S): [id number] ORDERING CLINICIAN: SAHRA SHARPE FINDINGS: Left knee, two views Subacute healing fracture through the proximal tibia with increased callus formation and sclerosis. No new fracture seen. No degenerative changes. There is diffuse osteopenia. IMPRESSION: Subacute healing nondisplaced proximal tibial fracture deformity Electronically signed by: MARIELLE BROWN MD [facility] Radiologyon 02-22-2022 XR Knee 1 or 2 Views Please click on the link to view the study images Normal [facility] 300 Work Phone: XR Knee 1 or 2 Views Normal [facility] 300 Work Phone: Established Visit (Orthopaed ic Surgery)on 01-25-2022 Established Visit (Orthopaedic Surgery) Diagnoses/Problems Assessed Closed fracture of left tibial plateau, initial encounter (823.00) (S82.142A) Closed nondisplaced transverse fracture of left patella, initial encounter (822.0) (S82.035A) Orders Closed nondisplaced transverse fracture of left patella, initial encounter Xray Knee 1 or 2 View; Status:Hold For - Scheduling; Requested for:25Jan2022; Laterality : Left Radiologist to Determine Optimal Study : Y What are the patient's signs and symptoms? : tibial plateau and patella nondisplaced fracture Provider Impressions Assessment: Left tibial plateau nondisplaced fracture, patella nondisplaced fracture Plan: Patient is doing very well she will continue knee immobilizer with minimal weightbearing in the left lower extremity. Continue aspirin twice daily. The swelling today is much improved therefore we will defer any duplex ultrasound. She will continue with ankle pumps. Follow-up in 4 weeks with repeat x-rays Chief Complaint Non-operative follow-up as she is 2 weeks status post fractures of the left patella and tibial plateau of the knee sustained on 01/12/2022. XR series of the left knee performed today. She denies any worsening pain at this time. She has been compliant with wearing her knee immobilizer, however she believes she has bear more weight on the knee with her walker at home secondary to having difficulty with using a wheelchair in the house and having to take care of her . She does mention the knee becomes more sore and aching pain after being on it with her walker during the day. History of Present Illness Patient is here today for follow-up of her left tibial plateau fracture and patella fracture nondisplaced on 01/12/2022. She is been compliant with the knee immobilizer however does mention she is probably putting more weight on the leg than what I recommended. She denies any major pain but does note that it is worse at the end of the day. She has been taking ibuprofen which seems to relieve the pain. No new injuries. She has been taking aspirin as instructed. Review of Systems Pt denies fever, chills, chest pain, dizziness, or shortness of breath Active Problems Problems Abnormality of gait (781.2) (R26.9) Acute pain of right knee (719.46) (M25.561) Acute UTI (599.0) (N39.0) Chronic pain of right knee (719.46,338.29) (M25.561,G89.29) Closed fracture of left tibial plateau, initial encounter (823.00) (S82.142A) Closed nondisplaced transverse fracture of left patella, initial encounter (822.0) (S82.035A) History of UTI (V13.02) (Z87.440) Nocturia (788.43) (R35.1) Stiffness of right knee, not elsewhere classified (719.56) (M25.661) EMERITA (stress urinary incontinence, female) (625.6) (N39.3) Surgical History Problems History of Bladder surgery History of Cataract surgery History of Cholecystectomy History of Colonoscopy History of Knee replacement History of Tubal ligation Family History Mother Family history of cardiac disorder (V17.49) (Z82.49) Sister Family history of depression (V17.0) (Z81.8) Family history of hyperlipidemia (V18.19) (Z83.438) Family history of hypertension (V17.49) (Z82.49) Social History Problems Never a smoker Allergies Medication No Known Drug Allergies Recorded By: Yael Lu; 10/29/2019 8:57:04 AM Current Meds Medication NameInstruction Levothyroxine Sodium TABS Nitrofurantoin Macrocrystal 50 MG Oral CapsuleTAKE 1 CAPSULE Daily Trimethoprim 100 MG Oral TabletTake 1 tablet daily Trimethoprim 100 MG Oral Tablet Vitals Vital Signs Recorded: 25Jan2022 09:32AM Fxbehupifng70.3 F Height5 ft 4 in Mmelpm076 lb BMI Geamiofvxc15.46 kg/m2 BSA Calculated1.78 Tobacco Useb) No Fall Screeningb) One or more falls in the last year Physical Exam Left lower extremity is neurovascularly intact, there is positive swelling at the knee, ecchymosis on the anterior witt and significant ecchymosis in the popliteal space. Negative swelling of the lower leg minimal tenderness around the ankle. Range of motion shows full extension flexion deferred Results/Data X-ray performed today see radiologist report for official readings Signatures Electronically signed by : Sahra Sharpe PA-C; Jan 25 2022 10:03AM EST (Author) Normal [employer] KNEE 1 OR 2 VIEWSon 01-26-20 22 KNEE 1 OR 2 VIEWS Patient Name: CAROL GRIMM STUDY: Left knee 3 views. INDICATION: patella and tibial plateau fracture S82.035A: Closed nondisplaced transverse fracture of left patella, initial encounter S82.142A: Closed fracture of left tibial plateau, initial encounter. COMPARISON: 01/13/2022. ACCESSION NUMBER(S): [id number] ORDERING CLINICIAN: SAHRA SHARPE FINDINGS: Redemonstration of nondisplaced longitudinal fracture involving the medial tibial plateau extending into the proximal medial tibial metaphysis. No significant articular surface gap. Subtle lucencies in the inferior patella suggesting a additional nondisplaced fracture. Bones appear demineralized. Small knee joint effusion. Soft tissues are unremarkable. IMPRESSION: 1. Redemonstration of nondisplaced medial tibial plateau fracture with longitudinal extension into the proximal medial tibial metaphysis. 2. Additional subtle nondisplaced fracture of the inferior patella. 3. Suggestion of osteopenia. Electronically signed by: CHELY MYERS MD Normal [facility] Radiologyon 01-25-2022 XR Knee 1 or 2 Views Please click on the link to view the study images Normal [facility] 300 Work Phone: XR Knee 1 or 2 Views Normal [facility] 300 Work Phone: Tobacco Screening.on 022 Fall risk assessment b) One or more fall s in the last year [facility] 300 Work Phone: Tobacco use status CPHS b) No [facility] and [facility] Medicine 300 Work Phone: Initial Visit (Orthopaedic S urgery)on 01-15-2022 Initial Visit (Orthopaedic Surgery) Diagnoses/Problems Assessed Closed nondisplaced transverse fracture of left patella, initial encounter (822.0) (S82.035A) Closed fracture of left tibial plateau, initial encounter (823.00) (S82.142A) Orders Closed fracture of left tibial plateau, initial encounter, Closed nondisplaced transverse fracture of left patella, initial encounter [employer]; Status:Complete; Done: 15Jan2022 Xray Knee 1 or 2 View; Status:Hold For - Scheduling; Requested for:15Jan2022; Laterality : Left Radiologist to Determine Optimal Study : Y What are the patient's signs and symptoms? : patella and tibial plateau fracture Provider Impressions Assessment: Left knee patella nondisplaced fracture, left tibial plateau nondisplaced fracture Plan: Today, we discussed different treatment options and she will continue in the knee immobilizer with the leg straight and minimal weightbearing. She will start aspirin 325 mg twice a day and continue using pain medicine as needed. Continue with ice. We will monitor the swelling in the leg and consider duplex ultrasound at next appointment if not improving. We reviewed that this will take about 6 to 8 weeks to heal and she will need therapy once it is healed enough. Follow-up in 10 days with repeat x-rays Chief Complaint PT HERE FOR LEFT TIBIAL PLATEAU/PATELLA FX. HERE WITH DAUGHTER. STATES TRIPPED OVER A PIECE OF CARDBOARD AND LANDED ON KNEE 01/12/22. PAIN AND SWELLING IMMEDIATELY AFTERWARD. FEELS PAIN HAS SLIGHTLY DECREASED. WEARING KNEE IMMOBILIZER. XRAYS DONE. REFERRED BY ED. History of Present Illness Patient is here today for evaluation of her left knee multiple fractures. She is a 76-year-old female who tripped over a piece of cardboard on 01/13/2012 and landed on her anterior knee. She had pain right away and reported to the emergency department where x-rays revealed the patella and tibial plateau fracture. She is placed into a knee immobilizer made nonweightbearing and sent to her office for further management. She continues have pain on the anterior aspect of the knee however this is improving. She has utilized minimal Aragon. She denies history of blood clots. She has been applying some weight however this has not been too painful for her. She is currently using a walker and wheelchair and does request to cherry sol. She rates her pain as an 1 Amended By: Sahra Sharpe; Jan 15 2022 10:58 AM ESTReview of Systems Constitutional: no fever, no chills, not feeling tired, no recent weight gain and no recent weight loss. ENT: no nosebleeds. Cardiovascular: no chest pain. Respiratory: no shortness of breath and no cough. Gastrointestinal: no abdominal pain, no nausea, no vomiting and no diarrhea. Musculoskeletal: no arthralgias. Integumentary: no rashes and no skin wound. Neurological: no headache. Psychiatric: no depression and no sleep disturbances. Endocrine: no muscle weakness and no muscle cramps. Hematologic/Lymphatic: no swollen glands and no tendency for easy bruising. All other systems have been reviewed and are negative for complaint. Active Problems Problems Abnormality of gait (781.2) (R26.9) Acute pain of right knee (719.46) (M25.561) Acute UTI (599.0) (N39.0) Chronic pain of right knee (719.46,338.29) (M25.561,G89.29) History of UTI (V13.02) (Z87.440) Nocturia (788.43) (R35.1) Stiffness of right knee, not elsewhere classified (719.56) (M25.661) EMERITA (stress urinary incontinence, female) (625.6) (N39.3) Surgical History Problems History of Bladder surgery History of Cataract surgery History of Cholecystectomy History of Colonoscopy History of Knee replacement History of Tubal ligation Family History Mother Family history of cardiac disorder (V17.49) (Z82.49) Sister Family history of depression (V17.0) (Z81.8) Family history of hyperlipidemia (V18.19) (Z83.438) Family history of hypertension (V17.49) (Z82.49) Social History Problems Never a smoker Allergies No Known Drug Allergies Recorded By: Yael Lu; 10/29/2019 8:57:04 AM Current Meds Medication NameInstruction Levothyroxine Sodium TABS Nitrofurantoin Macrocrystal 50 MG Oral CapsuleTAKE 1 CAPSULE Daily Trimethoprim 100 MG Oral TabletTake 1 tablet daily Trimethoprim 100 MG Oral Tablet Vitals Vital Signs Recorded: [id number] 10:06AM Jxgikpkiurl50.5 F Height5 ft 4 in Dfyjep954 lb 4 oz BMI Bplpchegrq63.68 kg/m2 BSA Calculated1.78 Tobacco Useb) No Fall Screeningb) One or more falls in the last year Physical Exam Left lower extremity is neurovascularly intact range of motion shows full extension, flexion deferred, mild effusion, positive lower leg swelling, tenderness over the medial tibial plateau and patella, tenderness of the proximal gastroc Right lower extremity shows neurovascular intact nontender full range of motion, negative swelling Results/Data Xray Knee Complete 4 or more [id number] 12:03PMNon Ambulatory, Provider Orde (more content not included)... Normal [employer] Tobacco Screening.on 022 Fall risk assessment b) One or more fall s in the last year [facility] 300 Work Phone: [phone] Tobacco use status CPHS b) No [facility] 300 Work Phone: [phone] KNEE CMPLT, 4 OR MORE VIEWSo n 01-13-2022 KNEE CMPLT, 4 OR MORE VIEWS Patient Name: CAROL GRIMM STUDY: KNEE; COMPLT, 4 OR MORE VIEWS; Left; 01/13/2022 12:03 pm INDICATION: Left knee pain after injury. COMPARISON: None. ACCESSION NUMBER(S): [id number] ORDERING CLINICIAN: EDEN WILLOUGHBY FINDINGS: AP, lateral, internal and external oblique views of the left knee. There is a nondisplaced acute intra-articular fracture through the left medial tibial plateau which extends inferiorly through the left proximal tibial metaphysis. There is a small amount of left knee joint effusion. Also, there is a comminuted, nondisplaced acute fracture through the inferior aspect of the left patella. Prepatellar soft tissue swelling is noted. Overall no knee dislocation. No radiopaque foreign body. IMPRESSION: Nondisplaced acute intra-articular fracture through the left medial tibial plateau, as described above. An MRI of the left knee is recommended to further assess internal ligamentous structures for further injury. Nondisplaced acute fracture through the inferior aspect of the patella, as discussed above. Small left knee joint effusion. Electronically signed by: ISAK GARCIA MD [facility] Provider Note - ED v3on 01-04 Provider Note - ED v3 Provider Note: Chart Review: ED NOTES ED NOTES: ====HPI==== Patient is a 76-year-old female who presents to the emergency department with a chief complaint of left knee pain. She states that yesterday evening she tripped and fell. She denies hitting her head or loss of consciousness. No neck pain. She is a states that she has been having difficulty bearing weight. She reports left knee pain that extends to her left lower leg. PMHX: hypothyroidism Social HX: Denies TOBACCO Denies ETOH Denies DRUGS ====Review of Systems==== 10 point system review is negative except for those specifically mentioned in history of present illness ====Physical Exam==== Constitutional/General: Alert and oriented x3, well appearing, nontoxic, and in NAD. Head: Normocephalic and atraumatic. Eyes: EOMI, conjunctive normal, sclera nonicteric, subconjunctival layer is pink. Mouth: Oropharynx clear, handling secretions, no trismus, no asymmetry of the posterior oropharynx or uvular edema Neck: Supple, full ROM, non tender to palpation in the midline, no stridor, no crepitus, no meningeal signs. Trachea at midline. Respiratory: Lungs clear to auscultation bilaterally, no wheezes, rales, or rhonchi, not in respiratory distress. Cardiovascular: Regular rate, regular rhythm, no murmurs, gallops, or rubs, 2+ distal pulses. Chest: normal chest wall movement GI: Abdomen soft, nontender, nondistended, + BS, no organomegaly, no palpable masses, no rebound, guarding, or rigidity. Musculoskeletal: left knee with moderate swelling. No erythema or abrasion. Limited ROM secondary to pain. No laxity. Moves all extremities x4, warm and well perfused, no clubbing, cyanosis, or edema, cap refill <3 seconds Integument: Skin warm and dry, no rashes. Neurologic: No focal deficits Psychiatric: Normal affect. ====ED Course and Medical Decision Making==== See MDM section for review of findings & plan of care. Portions of this note were dictated by speech recognition. An attempt at proof reading was made to minimize errors. Minor errors in art installer may be present. Please call if questions.. HISTORY OF PRESENTING ILLNESS is a 76 year old Female and was seen by me at 13-Jan-2022 11:29 for a chief complaint of lower leg pain/injury (pt reports she fell onto cardboard padded concrete last night, fell forward c/o of left knee pain extending to left lower leg, denies head or neck injury. unable to bear weight on left leg)(1). Triage Information: Most recent Vital Sign Value Date Temp (F): 97.6 01-13-2022 11:35 Temp (C): 36.4 01-13-2022 11:35 Heart Rate (beats/min): 65 01-13-2022 11:35 Respirations (breaths/min): 18 01-13-2022 11:35 SpO2 (%): 95 01-13-2022 11:35 BP Systolic (mm Hg): 136 01-13-2022 11:35 BP Diastolic (mm Hg): 67 01-13-2022 11:35 PAST MEDICAL HISTORY ALLERGIES/INTOLERANCES: No Known Allergies HEALTH HISTORY: No documented data. OUTPATIENT MEDICATIONS: Home Medications Review Status for Reconciliation: Complete Med Status: Patient Currently Takes Medications Drug Name: SYNTHROID 100 MCG TABLET Instructions: 1 tab(s) orally once a day//Brand Name//curently pt takes (7) tabs on Friday Night//pt was consulted on taking medication once daily Drug Name: LATANOPROST 0.005% EYE DROPS Instructions: 1 drop(s) in the right eye once a day (in the evening) Drug Name: NITROFURANTOIN MCR 50 MG CAP Instructions: 1 cap(s) orally once a day (at bedtime) SIGNIFICANT EVENTS: Past Medical History Description:Hypothyroidis m CRITICAL CARE RESULTS: Radiology Results: Impression: As above. Xray Tibia + Fibula 2 View [Jan 13 2022 12:25PM] Impression: Nondisplaced acute intra-articular fracture through the left medial tibial plateau, as described above. An MRI of the left knee is recommended to further assess internal ligamentous structures for further injury. Nondisplaced acute fracture through the inferior aspect of the patella, as discussed above. Small left knee joint effusion. Xray Knee Complete 4 or more View [Jan 13 2022 12:24PM] VITAL SIGNS: T PRBP SpO2O2(LPM) %FiO2 Method 13-Jan-2022 11:35:[id number]/67 95 room air, no respiratory support MDM MDM/ED COURSE: Patient is a 76-year-old female who presents with a left knee injury. X-ray shows a left tibial plateau fracture and a patella fracture. Spoke with orthopedics who recommended knee immobilizer and follow-up in office. Patient is comfortable with this plan. She will be discharged home with recommended follow-up with orthopedics as planned. DISPOSITION Diagnosis/Annotation: ED Dx Name:Tibial plateau fracture, left Code:S82.142A Name:Closed fracture of left patella Code:S82.002A Disposition: discharged CONSULT CRITICAL CARE TIME Is this a critically ill patient: no Electronic Si (more content not included)... Normal [facility] Radiologyon 01-13-2022 XR Knee 4 Views Normal [facility] 300 Work Phone: XR Tibia and Fibula - left 2 Views Normal [facility] 300 Work Phone: Risk Screen - Adult Emergenc yon 01-13-2022 Risk Screen - Adult Emergency Preferred Language: Preferred Language: Preferred Language for Discussing Health Care (patient/designee)Sinhala Advanced Directives: Advance Directive/DNRyes Advance Directive typeLiving Will, Durable Power of Foam Rubber Curer for Healthcare Living Will AvailabilityLiving Will not available now Durable Power of Foam Rubber Curer AvailabilityDPOA not available now Family Violence Adult: Abuse Screen: Are you or have you been threatened or abused physically, emotionally, or sexually by anyoneno Learning Assessment (Patient): Learning Assessment (Patient): Patient is Able to be Assessed for Learningyes Factors Influencing Readiness to Learnpain Factors that Impact Ability to Learnnone Devices/Methods Used to Communicatenone Learning Preferencesaudio Cultural Considerationsnone Developmental Considerationsnone Amish Considerationsnone Learning Assessment (Other Learner): Learning Assessment (Other Learner): Other learner availableno Pressure Injury/TB/Substance: Pressure Injury: Pressure Injury Present on Admissionno Do you have a coughno Smoking Statusnever smoker Alcohol Usedenies Admission Risk Screen: Significant IndicatorsComplete CAGE: CAGE: Is this an injured patient at a Tra[place] Center [place] [place]/[place]/ [place]): no Electronic Signatures: Yari Mukherjee (RN) (Signed 13-Jan-2022 11:42) Authored: Preferred Language, Advanced Directives, Family Violence Adult, Learning Assessment (Patient), Learning Assessment (Other Learner), Pressure Injury/TB/Substance, Pressure Injury, CAGE Last Updated: 13-Jan-2022 11:42 by Yari Mukherjee (RN) [facility] TIBIAon 01-13-2022 TIBIA Patient Name: CAROL GRIMM STUDY: TIBIA ; Left; 01/13/2022 12:03 pm INDICATION: Left lower extremity pain after injury. COMPARISON: None. ACCESSION NUMBER(S): [id number] ORDERING CLINICIAN: EDEN WILLOUGHBY FINDINGS: AP and lateral views of the left tibia and fibula. Acute fractures of the proximal left tibia and the patella are again partially visualized. Please see separate dedicated report of left knee series performed on the same day for further detail. No other acute abnormality is demonstrated to involve the left tibia or fibula. IMPRESSION: As above. Electronically signed by: ISAK GARCIA MD [facility] Triage - EDon 01-13-2022 Triage - ED Chart Review: ARRIVAL INFORMATION Mode of Arrival: private vehicle CHIEF COMPLAINT CAROL GRIMM is a Female patient with a chief complaint of lower leg pain/injury (pt reports she fell onto cardboard padded concrete last night, fell forward c/o of left knee pain extending to left lower leg, denies head or neck injury. unable to bear weight on left leg). Triage Date/Time: 13-Jan-2022 11:35 GRICELDA: 4 Vital Signs: Temperature: 97.6F ( 36.4C) taken temporal Blood Pressure: 136/67 Mean: Heart Rate: 65 Respiratory Rate: 18 Pulse Oximetry: 95% on room air, no respiratory support. Height: 5 feet 5.00 inches. 165.1 CM Weight: 146.3 pounds. Calculated 66.4 kg. (stated) Calculated BMI (kg/m2): 24.359 Calculated BSA (m2) 1.75 Sergio Coma Scale: Best Eye Response: (E4) spontaneous Best Motor Response: (M6) obeys commands Best Verbal Response: (V5) oriented Katy Score: 15 Allergies: no Patient has homicidal thoughts: no Symptoms Are Negative For: abrasion, bleeding, bruising, deformity, difficulty bending, difficulty walking, numbness, pain (describe), decreased ROM and tingling. Risk Screens Suicide Risk Screen In the Past Month: Have you wished you were or wished you could go to sleep and not wake up no In the Past Month: Have you had any actual thoughts of killing yourself no In Your Lifetime: Have you ever done anything, started to do anything, or prepared to do anything to end your life no Interventions: Alfaro Fall Interventions: LOW INTERVENTIONS: *patient oriented to surroundings and call system, * patient/family falls education completed and documented, *patients fall status communicated during bedside handoff, *whiteboard updated, *mode of toileting discussed with patient, *bed in low position with brakes locked, *call light in reach, * non-skid footwear and MODERATE INTERVENTIONS: *Low Interventions Plus: * falls risk band/sticker applied to patient, *yellow non-skid footwear, *instruct to call for assistance before getting out of bed, *bed/chair/bedside commode/toilet alarms, *sensory devices/ambulatory aides available and in reach, *medications reviewed for potential side effects and care planning. TRAVEL HISTORY Travel History Coronavirus Screening: no exposure or symptoms Travel Exposure History: NO travel to International locations in the past 30 days PAIN Pain Scale Used: BRIANA Past Medical History: Past Medical History Reviewedyes Hypothyroidism: Past Medical History, Active Electronic Signatures: Yari Mukherjee (RENNY) (Signed 13-Jan-2022 11:38) Entered: Risk Screens, Pain, Travel History, Chart Review, Scores, Past Medical History Authored: Quick Triage, Risk Screens, Pain, Travel History, Chart Review, Scores, Past Medical History Last Updated: 13-Jan-2022 11:38 by Yari Mukherjee (RENNY) [facility] Office Visit (Urology)on Follow-up visit Diagnoses/Problems Assessed Acute UTI (599.0) (N39.0) Never a smoker History of UTI (V13.02) (Z87.440) Orders Acute UTI Follow-up visit in 1 year Outpatient Follow-up ESTABLISHED PT Status: Hold For - Scheduling Requested for: 28Nov2021 Ordered Stat;For: Acute UTI; Ordered By: Sharan Mead II Performed: Due: 26Feb2022 SocHx: Never a smoker Tobacco Use Screening; Status:Complete; Done: 28Nov2021 Perform:Not Applicable;Ordered; For:SocHx: Never a smoker; Ordered By:Lona Garcia; Chief Complaint HX OF UTI'S Active Problems Problems Abnormality of gait (781.2) (R26.9) Acute pain of right knee (719.46) (M25.561) Acute UTI (599.0) (N39.0) Chronic pain of right knee (719.46,338.29) (M25.561,G89.29) Nocturia (788.43) (R35.1) Stiffness of right knee, not elsewhere classified (719.56) (M25.661) EMERITA (stress urinary incontinence, female) (625.6) (N39.3) Surgical History Problems History of Bladder surgery History of Cataract surgery History of Cholecystectomy History of Colonoscopy History of Knee replacement History of Tubal ligation Family History Mother Family history of cardiac disorder (V17.49) (Z82.49) Sister Family history of depression (V17.0) (Z81.8) Family history of hyperlipidemia (V18.19) (Z83.438) Family history of hypertension (V17.49) (Z82.49) Social History Problems Never a smoker Allergies Medication No Known Drug Allergies Recorded By: Yael Lu; 10/29/2019 8:57:04 AM Current Meds Medication NameInstruction Levothyroxine Sodium TABS Nitrofurantoin Macrocrystal 50 MG Oral CapsuleTAKE 1 CAPSULE Daily Trimethoprim 100 MG Oral TabletTake 1 tablet daily Trimethoprim 100 MG Oral Tablet Vitals Vital Signs Recorded: 84Ypu2291 01:40PM Heart Rate69 Qjklzbfd803 Idbnwqepp04 Height5 ft 4 in Xurcax985 lb BMI Gzguhfytuh74.81 kg/m2 BSA Calculated1.79 Tobacco Useb) No Fall Screeninga) No falls within the last year Procedure The patient was prepped using a Betadine solution. Lidocaine jelly was instilled into the urethra. The flexible cystoscope was sterilely inserted into the urethra and formal cystoscopy performed in a systematic fashion. . For detailed findings of the procedure, please see Dr. Mead's remarks below SCOPE 102 USED, PATIENT IS ON TRIMETHOPRIM DAILY NO MASS OR TUMOR. NORMAL CYSTO F/U 1 YEAR U/S REVIEWED Signatures Electronically signed by : Sharan Mead II, MD; Nov 28 2021 2:23PM EST (Author) Normal [employer] Tobacco Screening.on 02-23-2 022 Fall risk assessment a) No falls within the last year BN-[facility] [employer] [facility] 232 DO Work Phone: Tobacco use status CPHS b) No QF-Ysqjpqq-A [employer] [facility] 232 DO Work Phone: Radiologyon 11-21-2021 Kidney - bilateral Normal MP- Urology-A [employer] Work Phone: IO UA (automated w/o microsc opy)on 11-14-2021 Protein (U) [Mass/Vol] Negative MP -[facility] [employer] Work Phone: IO UA (automated w/o microscopy) (+)small - 15 RT-Ytujvyy-G [employer] Work Phone: IO UA (automated w/o microscopy) Positive UN-Ygfnnrl-R [employer] Work Phone: IO UA (automated w/o microscopy) Normal (0.2-1.0 mg/dl) MP-Urolog y-A [employer] Work Phone: IO UA (automated w/o microscopy) 5.5 1 RG-Rjlsmqn-M [employer] Work Phone: IO UA (automated w/o microscopy) Trace BP-Rffnfil-Z [employer] Work Phone: IO UA (automated w/o microscopy) 1.025 1 ME-Enxtpub-J [employer] Work Phone: IO UA (automated w/o microscopy) Negative RM-Xjssmdo-F [employer] Work Phone: IO UA (automated w/o microscopy) Cloudy DL-Xmnqbil-Y [employer] Work Phone: IO UA (automated w/o microscopy) Yellow ZJ-Xkgqtef-G [employer] Work Phone: Tobacco Screening.on 022 Adult depression screening assessment No MP-Urology- A [employer] Work Phone: Tobacco use status CPHS b) No WF-Fnijlgl-Q [employer] Work Phone: XR KNEE RIGHT 3 VIEWS (SPECI FY VIEWS IN COMMENTS)on 09-18-2020 XR KNEE RIGHT 3 VIEWS (SPECIFY VIEWS IN COMMENTS) EXAMINATION: XR KNEE RIGHT 3 VIEWS (SPECIFY VIEWS IN COMMENTS) HISTORY: ORDERING SYSTEM PROVIDED HISTORY: Follow up, TECHNOLOGIST PROVIDED HISTORY: Illness/Other Reason for exam: 1 year f/u right knee replacement and right knee pain Cancer History: U Surgery, RadiationHistory: U Encounter Type: Subsequent/Follow-up Additional signs and symptoms: none ORDERING SYSTEM PROVIDED DIAGNOSIS CODES: Z09 Follow up COMPARISON: 04/28/2020. FINDINGS: Three views of the right knee. Postoperative changes of right total knee replacement. Hardware components are well seated with appropriate alignment. No periprosthetic fractures. Chronic patella baja. No significant joint effusions. IMPRESSION: Intact total knee replacement. ST/[employer] Workstation ID: [id number] Dictated by: SAJAN STACY on FriSep 18, 2020 11:01:12 AM EST Transcribed by: SYBIL WIN on FriSep 18, 2020 11:18:35 AM EST Finalized by: SAJAN STACY on FriSep 18, 2020 7:23:16 PM EST Normal [facility] Amb[facility] Comment on above: Order Comment: Injur y/Trauma or Illness?:Illness/Other How long have you had these symptoms (acute/chronic)?:Chronic Reason for exam?:1 year f/u right knee replacement and right knee pain History of cancer?:U Surgeries, chemotherapy, or radiation?:U Type of Exam?:Subsequent/Follow-up Additional signs and symptoms?:none XR KNEE RIGHT 3 VIEWS (SPECI FY VIEWS IN COMMENTS)on 04-28-2020 XR KNEE RIGHT 3 VIEWS (SPECIFY VIEWS IN COMMENTS) EXAMINATION: XR KNEE RIGHT 3 VIEWS (SPECIFY VIEWS IN COMMENTS) HISTORY: ORDERING SYSTEM PROVIDED HISTORY: Right knee pain, TECHNOLOGIST PROVIDED HISTORY: Illness/Other Reason for exam: right knee pain hx of replacement in October Cancer History: U Surgery, RadiationHistory: U Encounter Type: Initial Additional signs and symptoms: hx of a tibial plateau fracture 06/2019 ORDERING SYSTEM PROVIDED DIAGNOSIS CODES: M25.561 Right knee pain COMPARISON: 11/09/2019 and 10/13/2019. FINDINGS: Three views of the right knee. Postoperative changes of right total knee replacement. Hardware is well seated. No periprosthetic fractures. Small suprapatellar joint effusion is suggested. No significant prepatellar soft swelling. IMPRESSION: Intact knee replacement. ST[facility] Workstation ID: [id number] Dictated by: SAJAN STACY on FriApr 28, 2020 3:38:36 PM EDT Transcribed by: ERICK CARR on FriApr 28, 2020 3:47:59 PM EDT Finalized by: SAJAN STACY on FriApr 28, 2020 6:16:16 PM EDT Normal [facility] Comment on above: Order Comment: Injur y/Trauma or Illness?:Illness/Other How long have you had these symptoms (acute/chronic)?:Chronic Reason for exam?:right knee pain hx of replacement in October History of cancer?:U Surgeries, chemotherapy, or radiation?:U Type of Exam?:Initial Additional signs and symptoms?:hx of a tibial plateau fracture 06/2019 XR KNEE RIGHT 3 VIEWS (SPECI FY VIEWS IN COMMENTS)on 11-29-2019 XR KNEE RIGHT 3 VIEWS (SPECIFY VIEWS IN COMMENTS) EXAMINATION: XR KNEE RIGHT 3 VIEWS (SPECIFY VIEWS IN COMMENTS) 11/29/2019 4:16 pm HISTORY: ORDERING SYSTEM PROVIDED HISTORY: Status post right knee replacement, TECHNOLOGIST PROVIDED HISTORY: Illness/Other Reason for exam: 6 WEEK F/U RIGHT KNEE REPLACEMENT Cancer History: U Surgery, RadiationHistory: U Encounter Type: Initial Additional signs and symptoms: NONE ORDERING SYSTEM PROVIDED DIAGNOSIS CODES: Z96.651 Status post right knee replacement COMPARISON: 10/13/2019 IMPRESSION: FINDINGS/ 1. The previously seen skin neva have been removed and the post-operative gas bubbles have resolved. 2. Prior right total knee arthroplasty remains, in satisfactory position, without visualized hardware complications. 3. Small to moderate right knee joint effusion and some soft tissue swelling are noted. 4. No fracture, malalignment, or other acute bony abnormality is seen. Workstation ID: [id number] Dictated by: AGUSTIN LOPEZ on FriNov 30, 2019 8:58:54 AM EST Transcribed by: AGUSTIN LOPEZ on FriNov 30, 2019 8:58:54 AM EST Finalized by: AGUSTIN LOPEZ on FriNov 30, 2019 8:58:54 AM EST Normal [facility] Comment on above: Order Comment: Injur y/Trauma or Illness?:Illness/Other How long have you had these symptoms (acute/chronic)?:Unknown Reason for exam?:6 WEEK F/U RIGHT KNEE REPLACEMENT History of cancer?:U Surgeries, chemotherapy, or radiation?:U Type of Exam?:Initial Additional signs and symptoms?:NONE IO UA (automated w/o microsc opy)on 11-08-2019 Protein (U) [Mass/Vol] Negative Negative [facility] [place] Work Phone: IO UA (automated w/o microscopy) Clear Clear [facility] [employer] Work Phone: IO UA (automated w/o microscopy) Negative Negative [facility] [employer] Work Phone: IO UA (automated w/o microscopy) 1.020 1.000-1.030 [facility] [employer] Work Phone: IO UA (automated w/o microscopy) Yellow Colorless-Y ellow [facility] [employer] Work Phone: IO UA (automated w/o microscopy) 6.0 5.0-8.0 [facility] [employer] Work Phone: IO UA (automated w/o microscopy) Normal (0.2-1.0 mg/dl) Normal [facility] [employer] Work Phone: IO UA (automated w/o microscopy) Positive Negative [facility] [employer] Work Phone: IO UA (automated w/o microscopy) Trace Negative [facility] [employer] Work Phone: Basic Metabolic Panelon Anion gap [Moles/Vol] 9 mmol/L Low 10 - 2 0 mmol/L [facility] Calcium [Mass/Vol] 8.8 mg/dL 8.4 - 10. 2 mg/dL [facility] Chloride [Moles/Vol] 111 mmol/L High 98 - 10 8 mmol/L [facility] Creatinine [Mass/Vol] 0.78 mg/dL 0.6 - 1.2 mg/dL [facility] GFR/1.73 sq M predicted among non-blacks MDRD (S/P/Bld) [Vol rate/Area] The eGFR should be used for monitoring renal function only and not for medication dosing. [facility] GFR/1.73 sq M.predicted CKD-EPI (S/P/Bld) [Vol rate/Area] 76 >=60 mL/min/1.73 m2 [facility] Glucose [Mass/Vol] 119 mg/dL High 65 - 99 mg/dL [facility] HCO3 [Moles/Vol] 27 mmol/L 21 - 32 mmol/L [facility] Interpretation and review of laboratory results Abnormal [facility] Potassium [Moles/Vol] 4.3 mmol/L 3.5 - 5.1 mmol/L [facility] Sodium [Moles/Vol] 143 mmol/L 135 - 145 mmol/L [facility] Urea nitrogen [Mass/Vol] 14 mg/dL 8 - 25 mg/dL [facility] Urea nitrogen/Creatinine [Mass ratio] 17.9 mg/mg [facility] Hemoglobin and Hematocriton 10-14-2019 Hematocrit (Bld) [Volume fraction] 33.7 % Low 36 - 46 % [facility] Hemoglobin (Bld) [Mass/Vol] 10.9 g/dL Low 12 - 16 g/dL [facility] Interpretation and review of laboratory results Abnormal [facility] TISSUE EXAMon 10-14-2019 Case Report Surgical Pathology R eport Case: [id number] Authorizing Provider: Shaun Hurt MD Collected: 10/13/2019 09:33 AM Ordering Location: [facility] Received: 10/13/2019 12:06 PM Pathologist: Ishmael Lemus MD Specimen: Knee, Right, Bone and Soft Tissue [facility] Clinical information [id number] yMDAwX QAxf2ldQWPvrCFkZaFhCbIiHf BtYkppcSKoCQCnOkNxx4byd69 9uGKkb8dpQXEkFoU2gEWeHETc [id number] SGzFGF3FDnhqpZzcuK6VFeinN OnSeR2DPfsjaKtWZjjisXwgrO rErf4PVGjF445ELC3sJexw4zu WGG1CTNdDBPqAzZsYs5bmRGlP 518YLGlJKSLYSPqpWd9HKDgpc EzpxDigELEk233P769n2obDLA buyVquGoPsimpd7rpA668NSIv aZBtvoGzCmBaAROiqXYphNC9B IWwLP5btbtrErMrXC0suybyNd GlOP9qyif2WJN7VRwuXFWnJxL 7XAHpwNVhBRRvsIrpJRnhj580 GJF8SGqbj3qfz1oxwICyZhm5C TNzBbIkRbxqGDjna5Fpy7kyNU Hggw9xDZU5aJGnqLvwq0M6nPA hZKSmqEJxroLtKFVmIdA6ALxf BW2atc96ZRAqSEL0wk6ysJKwz WtkmqRwvEGqMEhvE7SqNBMow4 67DCGkP9VbSCQew7C6xvEyVjP ePCSxdWC2bxR8RHBdQPr4aZLb psH2ftRofOMdH0vpmD17GcYam SSqX0OfyF50OeQimGZqP1LyzW 5eUWLeMT0fdbqun9hfWAF4XPa oOUPzXCE2GsAhMLXzn4Zgbqvo GXBnr4XhJ5WevKyoX73krMvqP 72pLRAhpGnjqD8nwZyjbS3yPo BcZnMyNFxxbFxwbGFpblxmMFx hivPxBLrpbpwyPQRxIQytL5ug FbSfUDHqhHeuTZybx7YmXIBzE BXtXwGyT3osl0VaKZBwTPE8sR LnRT7vCVCaS5s7MCOcLheiwAK rhXU0JGJ3XYArpqs2pVXxCYWz R555cxRlofqoAHR8 [facility] Pathology report final diagnosis Narrative z7ggnDOeLPZelUWwRhOaAIWrR XPtm7toOVLxmLPgToCyYmOyAv CzMlumaQNxISHsFaYcy1rbh94 0hGCro2xbGOBnFuM5gUFoXXDh bKHfS357DMJtVTpgs7tuo8XwN LMolLZoh6K5HJWEowyryWq7xN qcF11qf8H5KuakC8zcELIdEWZ qY9MzGZ5zXAHbCas4PVZ9CLJ3 CVBzPQRwI7FqDX5xAIRxkIStF TqkndOjTqQ7QKomKODtWuE8JN XsfUMlYBttE710MOC2bOdcx2x pPRR2QGWmVKMkNwKwYg1ehXEx H702JIHvOXGHPAHluTf9MNJkd uRbhzGzdZUAh240D392n2utHJ IatfQhtDhIjyeyz9xxN868QDS hcGVydzEyMjQwXHBhcGVyaDE1 LOAsSG2vudryLuAeVD4nmjfdN gGzFG4iigx0OBX1CJmeTDBhWp G1YRMncYKkCJLlwDefAUnlh03 6HET6RTfpn4nkc4ejpXGxUci0 OAPbMtSgGkvlKGhgp0Btg2wwH OQxwg8hVVX2vLWbbPxvr5A5gG QnIHEygTZjijZhESKrAxZ1KKn vLV3rir93RCVkQHX6ck6wyWYt rAqyhgGchBSqYNdnE1SmMEHbg 584BCGzK8BcTFFzz2Q5wqThSi JdGYLwhPA9gdO8PEJkPSt9pAZ xuoZ0wcAgbSZgX9qdqX11DbEu rGRjZ9SunI12QiFebKNvQ6Okg A2pFCSjNR8rhlbwe9csELI0DF dkTPPfTOE0GaOhXLYjr5Ybuuu nQWPrx2IgY4LdcWagL20fiQew D43tTMCgkMiggB6afDkunD0mA jBcZnMyNFxxbFxwbGFpblxmMV lwggUnBJqtsporSZXxJJmtO7a sWtWjUOBinJnpEHbgj3NbJFRq MCImDcnqzzZtDIVkYL9mJVkpp GFpblxmMVxmczIwXGxhbmcxMD XhGKjtG4pgHmQzWJRswCmyNAx cx3NzOTHdAOAiBjcxfnLgVMIv aKAabVMjoVtgHyqkdTI8UEzyB gnzkT3wuEAIWGZUZjxEUlykuv UhMK6CENVOOeRSKE27AaCiAUG 8MHwwfXtcZmxkcnNsdCBcJzFj eV7ftRfsvB8yYjCcIeFnQLedD R9gYFLxO8jcdHDpKNTbMDGcG8 gcAdHpuS0vaOgpPApuAgGsOnZ rSRasSGNnr5DcT2UaF28lLAcl UmlnaHQsIHRvdGFsIGFydGhyb 3YiGQK4jExryZwkgL7qUfKgKb VvILlaVP2cTIRwV3rioRFrFNP iNTZcC2usHwJyyH6twVlhMQkm ApMxMxPmXOgeIRWpl5GlN0Q8A EMxYTisi9ftNRCpQIwaa6WnKI wHVRNSWR0BYL4tjLH5MUyWJUV IDObhPYA3EXmsgWB7d7spfYCn r6l5DOjjJRN5eIyakMBvcxijS VxmczIwXGxhbmcxMDMzXGhpY2 giKvGhMSJceDmcRIgmy0VlBQF xXGZzMjBccGFyXGxpNzIwXHBs AXjyQHIcEGOsRxSqoYkzyX2hX vHjElSsIFmgQE1uZNQrA1opqV KsCRBzRHVjE5bgYqUzrZ8viEb mMVxmczIwIFRvdGFsIGtuZWUg VVV3oKXzvQuxs5M3ZOjjfBelE pegJTqsU4QvA93qs8uhiXExpK J1bHNoYKGkY8BpIFPtiPq6IEW mr5wogATqvGLsSMExUnzapJJj blxmMVxmczIyXGxhbmcxMDMzX HubU3pdTkXfVUNseZdyXOryi9 NoXGYxXGNmMlxmczIyXHBhclx cmAJhmWzeoF9qWoThJhYtHPhg bGFpblxmMVxmczIwXGxhbmcxM NQsNHpnY0vmKdJvKVKfqInwAN fiy7UdVRXyCFCqLzCiuUDdXQL kW75GMkOXJZOYF74YGYNMDIFA Z6KBF1yARPB3AvJ2kVL4OZJ3A xKGCWEDVWkYS1GzZADKNUMASO UuPH9AZHmSIPAGGSZVN40WALC ECOOKY8RIQ8aMNMvLZTFNBNST I47EZTAHFCAWU0FMTUUJXDWJJ JvLUYKELs5CKEWSNZWNJX5XBW pBAcXrPJwMCVOfyxCiUlZ3WcU 1PR5jBEiVM7DAP7bHBEQzIQAH WJHINULsVI4NLNtUMG8BXUIzP OAEUEMWKCQzVeDROC9eQWeNQL 3PRTCcDUHBYLSLDUIuNP8BPSF OIJ0SMKBCFLWCH86YZXIXINLE S7UEO0rZGXPIMBTQOqYBYeVUG F8JKPVDZKYLSY9HChA9 [facility] Pathology report gross observation Narrative u6zvkYEcELBfpSAbChYdUNYdD QMzk4quTTXlgEQvOlLzOnOtMk XcOwaeyRIbDUEtVtYad2gut16 6bOBof6yfRGRvPvZ3kVFfZCYc yZTdZ630MFPqIKcad8xkg9XdH HBwgRHrr0I2JWJPnmlfaRx3mU chO57or6O6GxgaZ1sfHJGbKNk tTPXrISmjwETyGRN0LZHuCUB9 IUvaoeQujfW8YDtdfJVjFeR1Z Ex3j6swtByrYFFzWJZ5u0fnCX nrtxQnBX7iom6guRf6g6fxndF qDBHoSSGizNLTGUEoV3XazSsx Yu1jyPs5qOsrIzzuFVR6Ymw8A A3imt79lfs6iGqpZIZkmgbhYq R8FClxRIAgwgxbPLl1CMohAXF nbDcyMFxtYXJncjcyMFxtYXJn gDA3ZEQkwHHzN9RmXGIlVMyyA KSlxcb8XvZhYi1tmTSauSFdui 7wsl96ERV0a2VzlBfsCQP4UQH 4RhBzTs3tfRJbUERqKI9mZjYl dMOhEFAdjk26iXvmJCcwlyImd T9fMdNuQXNdxJVtXBBkAA5ziX BqESLomO5uxszoSRVhHyLqzgu nQTPuyAbctqLgFb6oqBgnLAF1 NUceC9apeI5iVjI8DQpoV4kjh I6oWFb2CYcuwFY6GKRofN8fRA 8ukgjsy2ezNvFjTF8gfsofv5v fYwTbTX5exju7w8woVGR3KQgg EGEeJlO6fsZ1DJZepELiMBEko OmxXBlsb709PNI6RQklAwopIV dlXHBnbmNvbnRccGduZGVjXHB sYWluXHBsYWluXGYwXGZzMjBc yWsftGbroC9pKqAhNhSiCQgon GFpblxmMVxmczIwIFRoZSBzcG ExzG3iovSbZVVupRLyZITmfrO hl9AlFZwhjeMmNCFxiSXyWMR0 y0MkzOWekaTyXRIufFfcl3FvY HB0zNDhAQIhYF75jHEoxKrfPM TaRQsqAJ19wuTuNyJgo24lHBW hBNQuy6O7KTWzx8M1NMD2oQxq nKCpU2tgSJtkgQYdkD8wXCLca XY2BJigJlHmgR1rFQTobuNoYZ qqMgLeP07qtwHrMQOqWNYiWBS qK85ghiVxpBKsFGKlxWhgwRXu IHBsYXRlYXUsIGFuZCBvdGhlc iBmcmFnbWVudHMgYXJlIHJlY2 2bvaz3ZYQwVXTsgdFmGC8exnF hYDCnatM5pKMdOHKEuV2xYoQe c7wlkRPwfPMfMKXaclrscQhfw oVcIHIaLRU8xGMjj3w0OYRgjp RpjxCsLbTnJNN4oAkwP9LhKUT 0ee9vjCupofTtetAnmw05U1un aucnLuusXH6pDI8vcGKhvFw0w GVzIGFyZSBpZGVudGlmaWVkLi VuRbGqcvOgMV04ZCAchtBvz5M thOaqtrJjDYJqPDX0Wc9naMGg QFHjx9XoiFvkdT4jl7toVsZre MPnJSFzmGyks2aoZhWwFOZucs lvZCBvZiBkZWNhbGNpZmljYXR qu16rATEtvawzPZIfBVi9mVQ1 TDKcmyZZxl8iewRukJAytU6oq IvcgcOvEKEeo9UpJCHhBWG8WL 7tguCteZMjZNDYt9FouFAuaBJ gWQEgDFSFyNKxx22nnkJExiDr kVItWGRct6UbCEajAQLGJEC7B HeqY6dmBMS1 [facility] Pathology report microscopic observation Narrative Other stain c6rurAGsGDIcsXHmVzJhEOPdI JOtv9vzFLKbpWGeBxQjEgDbDr YaHtxsiDAbLUGcLxOfg2ref69 4wONpc1baKJZuSoF4sPHkQMLl xEFjY554KXFgHWaix9bfg9EaA FMnbEAyw1R6QMBLlikhzUa7iS wpU59wt2N3VnckD3vfSEIsBJM rO6UhWT3zJBBsCgo2MSD5RBC4 XOOgUWPmL1IgZN6pXPUjxUEjB Ya5t9stoMsgLCPxVXJ0j0izWJ paycZcLB2rxe4rtZp3o1koxzV uOSLlYMOliALVGBMaP8UdiSdm Uq7ynFh4gMavQulnOMB1Lio5Z M2bbe32jgc1vOkvBUYqwnpyYt I7LWktOKKgrtfzHBb0HZrdFSD rvVF1YGJvwQBbM4DdIRAsDI2k zmr5NLE7RLzrVOGbUxV6IUTfd EMbPNIlzBdyYOisf842PKS0Yj ZxLR1gJ5Euq0M7gH9fhUIrJWW guYQaSyXjWADtxu7tnSVxXCfb v0IzPOU7asV1kQTwhNXpQTWnX H41Ztqsc5VfWpawZQZ1DUVnde Coc2Gci3bkLtCudvJjA8obM9M cTLQaXBPyJTLfGdLgmiHrc5Ue u5LtgPHjtNw5r8ouOWAuMNPlr Lrbm7rfDCY0KTFnO7H4uINox2 zbYCmbTARilAR4zvW0XOXgjAI yL8PhdB5oYXSzHF0anio0x0hy CDL8HTkhVQAeGmB5baE9UHYnj GUiYRTstJbaXHnnh094FZG9Wo OkMNSpf7SlZ0PspYdrV57fvBd vJ65zRQUcsRmguW2fxSyxhV1z ZjBcZnMyNFxxbFxwbGFpblxmM VxmczIwXGxhbmcxMDMzXGhpY2 aoWbWlEEPydJyeJOvoo2SpDJX zNYBoEiXeJHrony4qC16nwTOi GKdzlJflVTCcg59hjZOzlGZxF g8mpVIrOfprMZT3 [facility] XR KNEE RIGHT 2 VIEWS (STAND LEXII)on 10-13-2019 XR KNEE RIGHT 2 VIEWS (STANDARD) EXAMINATION: XR KNEE RIGHT 2 VIEWS (STANDARD) HISTORY: ORDERING SYSTEM PROVIDED HISTORY: ARTHOPLASTY, TECHNOLOGIST PROVIDED HISTORY: Illness/Other Reason for exam: post op arthoplasty Cancer History: U Surgery, RadiationHistory: U Encounter Type: Initial Additional signs and symptoms: u ORDERING SYSTEM PROVIDED DIAGNOSIS CODES: S82.141A Closed fracture of right tibial plateau, initial encounter COMPARISON: 08/31/2019. FINDINGS: Two views of the right knee. Postoperative changes of total knee replacement with patella resurfacing. Tibial and femoral components are well-seated with appropriate alignment. Surrounding osseous structures are intact. Expected postoperative changes of joint effusion and intraarticular emphysema. Superficial surgical neva are in place at the anterior knee. IMPRESSION: Interval total knee replacement without apparent complication. /[facility] Workstation ID: [id number] Dictated by: SAJAN STACY on FriOct 13, 2019 2:05:54 PM EST Transcribed by: TRISH BUTCHER on FriOct 13, 2019 2:34:07 PM EST Finalized by: SAJAN STACY on FriOct 13, 2019 6:57:18 PM EST Normal [facility] Comment on above: Order Comment: Injur y/Trauma or Illness?:Illness/Other How long have you had these symptoms (acute/chronic)?:Unknown Reason for exam?:post op arthoplasty History of cancer?:U Surgeries, chemotherapy, or radiation?:U Type of Exam?:Initial Additional signs and symptoms?:u XR Knee Right 2 Views (Stand lexii)on 10-13-2019 [place], [place] In Michael Simon - 10/13/2019 7:00 PM EST EXAMINATION: XR KNEE RIGHT 2 VIEWS (STANDARD) HISTORY: ORDERING SYSTEM PROVIDED HISTORY: ARTHOPLASTY, TECHNOLOGIST PROVIDED HISTORY: Illness/Other Reason for exam: post op arthoplasty Cancer History: U Surgery, RadiationHistory: U Encounter Type: Initial Additional signs and symptoms: u ORDERING SYSTEM PROVIDED DIAGNOSIS CODES: S82.141A Closed fracture of right tibial plateau, initial encounter COMPARISON: 08/31/2019. FINDINGS: Two views of the right knee. Postoperative changes of total knee replacement with patella resurfacing. Tibial and femoral components are well-seated with appropriate alignment. Surrounding osseous structures are intact. Expected postoperative changes of joint effusion and intraarticular emphysema. Superficial surgical neva are in place at the anterior knee. IMPRESSION: Interval total knee replacement without apparent complication. [employer] Workstation ID: [id number] [facility] EXAMINATION: XR KNEE RIGHT 2 VIEWS (STANDARD) HISTORY: ORDERING SYSTEM PROVIDED HISTORY: ARTHOPLASTY, TECHNOLOGIST PROVIDED HISTORY: Illness/Other Reason for exam: post op arthoplasty Cancer History: U Surgery, RadiationHistory: U Encounter Type: Initial Additional signs and symptoms: u ORDERING SYSTEM PROVIDED DIAGNOSIS CODES: S82.141A Closed fracture of right tibial plateau, initial encounter COMPARISON: 08/31/2019. FINDINGS: Two views of the right knee. Postoperative changes of total knee replacement with patella resurfacing. Tibial and femoral components are well-seated with appropriate alignment. Surrounding osseous structures are intact. Expected postoperative changes of joint effusion and intraarticular emphysema. Superficial surgical neva are in place at the anterior knee. [facility] Interval total knee replacement without apparent complication. [employer] Workstation ID: [id number] [facility] MYOCARDIAL PERFUSION MULT I SPECTon 10-07-2019 MS MYOCARDIAL PERFUSION MULTI SPECT Nuclear Report Patient: SIRISHA Longo Med Rec#: [id number] (Age): 1945(73y) Height: 165.1(cm)/64(in Study Date: 10/07/2019 Weight: 65.8(kg)/145(lb Room#: BSA: 1.73 Type: Outpatient Loc: Sex: F Indications: -Pre-op Cardiovascular Exam - Checklists: -Patient verbally identified self -Consent signed and placed in chart -Procedure verified and explained to patient -Medication Reconciliation completed. -Discharge instructions given Nuclear Cardiology Conclusion: Normal Regadenoson myocardial perfusion with Tc-99m tetrofosmin imaging. Overall intermediate-risk study based on SCAI criteria (1-3% predicted annual cardiac mortality). Intermediate risk study based on functional capacity. No definitive fixed or reversible defects noted. Study limited by diaphragmatic/soft tissue attenuation. Normal left ventricular size with septal wall motion abnormality due to underlying left bundle branch block and normal systolic function, post-stress LVEF 74%. Stress ECG Conclusion: Non-diagnostic pharmacologic Regadenoson Stress Test . Baseline ECG: Sinus bradycardia. LBBB. Pharmacologic Protocol: - The patient was unable to exercise due to difficulty walking. - Regadenoson 0.4mg IV Bolus was given over 10-20 seconds. - Tolerated Medication Infusion. Stress ECG : There is normal sinus rhythm. LBBB. No ectopy noted. ECG was non-diagnostic, secondary to LBBB. Recovery ECG: Normal sinus rhythm. LBBB. No ectopy noted. Hemodynamics REST STRESS RECOVERY SBP 124 mmHg 123 mmHg 113 mmHg DBP 64 mmHg 64 mmHg 61 mmHg HR 59 bpm 90 bpm 75 bpm %MPHR 61 % Imaging Protocol: This was a gated SPECT myocardial perfusion imaging study. A one day stress-rest imaging protocol was followed using Tc-99m tetrofosmin (Myoview) injected intravenously. For the rest portion of the study, 23 mCi of the radiopharmaceutical was administered at 10/07/2019 10:35:00. Rest imaging was performed at 11:00:00. For the stress portion of the study, 7.6 mCi was administered at 10/07/2019 09:01:53. Stress imaging was performed at 10:00:00. Perfusion Interpretation: TID Ratio 0.88. Perfusion at stress and rest conditions was normal. Wall Motion Interpretation: The patient's calculated post stress LVEF was 74%. The patient's calculated rest LVEF was 68%. The patient's end diastolic volume was 73ml. The patient's end systolic volume was 19ml. Gated imaging under post-stress conditions demonstrated mild hypokinesis of the basal anteroseptal, basal inferoseptal, mid anteroseptal, mid inferoseptal, apical septal segment(s). Study Limitations: Limitations and artifact were due to diaphragm or other soft tissue. Nuclear Doctor Interpreted Study and Electronically signed at 10/07/2019 11:21:24 by: Nitza Hernández MD Dictated by: NITZA HERNÁNDEZ on FriOct 07, 2019 11:21:24 AM EST Transcribed by: NITZA HERNÁNDEZ on FriOct 07, 2019 11:21:24 AM EST Finalized by: NITZA HERNÁNDEZ on FriOct 07, 2019 11:21:24 AM EST Normal [facility] Comment on above: Order Comment: Injur y/Trauma or Illness?:Illness/Other How long have you had these symptoms (acute/chronic)?:Unknown Reason for exam?:Pre Op Eval Type of Exam?:Unknown Additional signs and symptoms?:Pre Op Eval Otheron 10-07-2019 Nuclear Report Patient: SIRISHA Longo [facility] Rec#: [id number] (Age): 1945(73y) Height: 165.1(cm)/64(in Study Date: 10/07/2019 Weight: 65.8(kg)/145(lb Room#: BSA: 1.73 Type: Outpatient Loc: Sex: F Indications: -Pre-op Cardiovascular Exam - Checklists: -Patient verbally identified self -Consent signed and placed in chart -Procedure verified and explained to patient -Medication Reconciliation completed. -Discharge instructions given Nuclear Cardiology Conclusion: Normal Regadenoson myocardial perfusion with Tc-99m tetrofosmin imaging. Overall intermediate-risk study based on SCAI criteria (1-3% predicted annual cardiac mortality). Intermediate risk study based on functional capacity. No definitive fixed or reversible defects noted. Study limited by diaphragmatic/soft tissue attenuation. Normal left ventricular size with septal wall motion abnormality due to underlying left bundle branch block and normal systolic function, post-stress LVEF 74%. Stress ECG Conclusion: Non-diagnostic pharmacologic Regadenoson Stress Test . Baseline ECG: Sinus bradycardia. LBBB. Pharmacologic Protocol: - The patient was unable to exercise due to difficulty walking. - Regadenoson 0.4mg IV Bolus was given over 10-20 seconds. - Tolerated Medication Infusion. Stress ECG : There is normal sinus rhythm. LBBB. No ectopy noted. ECG was non-diagnostic, secondary to LBBB. Recovery ECG: Normal sinus rhythm. LBBB. No ectopy noted. Hemodynamics REST STRESS RECOVERY SBP 124 mmHg 123 mmHg 113 mmHg DBP 64 mmHg 64 mmHg 61 mmHg HR 59 bpm 90 bpm 75 bpm %MPHR 61 % Imaging Protocol: This was a gated SPECT myocardial perfusion imaging study. A one day stress-rest imaging protocol was followed using Tc-99m tetrofosmin (Myoview) injected intravenously. For the rest portion of the study, 23 mCi of the radiopharmaceutical was administered at 10/07/2019 10:35:00. Rest imaging was performed at 11:00:00. For the stress portion of the study, 7.6 mCi was administered at 10/07/2019 09:01:53. Stress imaging was performed at 10:00:00. Perfusion Interpretation: TID Ratio 0.88. Perfusion at stress and rest conditions was normal. Wall Motion Interpretation: The patient's calculated post stress LVEF was 74%. The patient's calculated rest LVEF was 68%. The patient's end diastolic volume was 73ml. The patient's end systolic volume was 19ml. Gated imaging under post-stress conditions demonstrated mild hypokinesis of the basal anteroseptal, basal inferoseptal, mid anteroseptal, mid inferoseptal, apical septal segment(s). Study Limitations: Limitations and artifact were due to diaphragm or other soft tissue. Nuclear Doctor Interpreted Study and Electronically signed at 10/07/2019 11:21:24 by: Nitza Hernández MD [facility], Rad In [facility] - 10/07/2019 1:29 PM EST Nuclear Report Patient: SIRISHA Longo Med Rec#: [id number] (Age): 1945(73y) Height: 165.1(cm)/64(in Study Date: 10/07/2019 Weight: 65.8(kg)/145(lb Room#: BSA: 1.73 Type: Outpatient Loc: Sex: F Indications: -Pre-op Cardiovascular Exam - Checklists: -Patient verbally identified self -Consent signed and placed in chart -Procedure verified and explained to patient -Medication Reconciliation completed. -Discharge instructions given Nuclear Cardiology Conclusion: Normal Regadenoson myocardial perfusion with Tc-99m tetrofosmin imaging. Overall intermediate-risk study based on SCAI criteria (1-3% predicted annual cardiac mortality). Intermediate risk study based on functional capacity. No definitive fixed or reversible defects noted. Study limited by diaphragmatic/soft tissue attenuation. Normal left ventricular size with septal wall motion abnormality due to underlying left bundle branch block and normal systolic function, post-stress LVEF 74%. Stress ECG Conclusion: Non-diagnostic pharmacologic Regadenoson Stress Test . Baseline ECG: Sinus bradycardia. LBBB. Pharmacologic Protocol: - The patient was unable to exercise due to difficulty walking. - Regadenoson 0.4mg IV Bolus was given over 10-20 seconds. - Tolerated Medication Infusion. Stress ECG : There is normal sinus rhythm. LBBB. No ectopy noted. ECG was non-diagnostic, secondary to LBBB. Recovery ECG: Normal sinus rhythm. LBBB. No ectopy noted. Hemodynamics REST STRESS RECOVERY SBP 124 mmHg 123 mmHg 113 mmHg DBP 64 mmHg 64 mmHg 61 mmHg HR 59 bpm 90 bpm 75 bpm %MPHR 61 % Imaging Protocol: This was a gated SPECT myocardial perfusion imaging study. A one day stress-rest imaging protocol was followed using Tc-99m tetrofosmin ([place]) injected intravenously. For the rest portion of the study, 23 mCi of the radiopharmaceutical was administered at 10/07/2019 10:35:00. Rest imaging was performed at 11:00:00. For the stress portion of the study, 7.6 mCi was administered at 10/07/2019 09:01:53. Stress imaging was performed at 10:00:00. Perfusion Interpretation: TID Ratio 0.88. Perfusion at stress and rest conditions was normal. Wall Motion Interpretation: The patient's calculated post stress LVEF was 74%. The patient's calculated rest LVEF was 68%. The patient's end diastolic volume was 73ml. The patient's end systolic volume was 19ml. Gated imaging under post-stress conditions demonstrated mild hypokinesis of the basal anteroseptal, basal inferoseptal, mid anteroseptal, mid inferoseptal, apical septal segment(s). Study Limitations: Limitations and artifact were due to diaphragm or other soft tissue. Nuclear Doctor Interpreted Study and Electronically signed at 10/07/2019 11:21:24 by: Nitza Hernández MD [facility] CT KNEE RIGHT WITHOUT CONTRA STon 09-21-2019 CT KNEE RIGHT WITHOUT CONTRAST EXAMINATION: CT KNEE RIGHT WITHOUT CONTRAST HISTORY: ORDERING SYSTEM PROVIDED HISTORY: Closed fracture of right tibial plateau, initial encounter, TECHNOLOGIST PROVIDED HISTORY: Illness/Other Reason for exam: right knee oa. pre-op for roboi surgery Encounter Type: Initial Additional signs and symptoms: n/a ORDERING SYSTEM PROVIDED DIAGNOSIS CODES: S82.141A Closed fracture of right tibial plateau, initial encounter COMPARISON: 08/31/2019 and 07/15/2019 radiographs. TECHNIQUE: Axial CT imaging of the right hip, knee and ankle without contrast. Lorenzo protocol. Dose reduction techniques were achieved by using automated exposure control and/or adjustment of mA and/or kV according to patient size and/or use of iterative reconstruction technique. FINDINGS: KNEE: Recent nondisplaced medial tibial plateau fracture measures approximately 5.2 x 2.3 cm in the axial plane. Recent mildly depressed posterolateral tibial plateau fracture measures 2.8 x 1.2 cm in the axial plane. Medial knee compartment joint space narrowing with subchondral sclerosis, subchondral cystic changes and marginal osteophytosis. Marginal osteophytosis of the lateral and patellofemoral compartments. Small joint effusion. A few intraarticular bodies in the patellofemoral recess measuring up to 6 mm. Normal surrounding muscle bulk. HIP: No acute osseous abnormality. No CT evidence of avascular necrosis of the femoral head. Normal alignment. No significant hip osteoarthritis. No significant joint effusion. ANKLE: No acute osseous abnormality. Normal joint alignment. No significant tibiotalar osteoarthritis. Surrounding soft tissues appear unremarkable. IMPRESSION: Recent, nondisplaced, right medial tibial plateau fracture. Measures approximately 5.2 x 2.3 cm in the axial plane. Findings are not well seen on recent radiograph. Recent, right mildly depressed posterolateral tibial plateau fracture. Measures 2.8 x 1.2 cm in the axial plane. 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 No significant osteoarthritic changes of the right hip and ankle. / Workstation ID: [id number] Dictated by: SAJAN STACY on FriSep 21, 2019 9:33:50 AM EST Transcribed by: CHARANJIT STEWART on FriSep 21, 2019 9:37:32 AM EST Finalized by: SAJAN STACY on FriSep 21, 2019 6:59:49 PM EST Normal [facility] Comment on above: Order Comment: 09/21 Injury/Trauma or Illness?:Illness/Other How long have you had these symptoms (acute/chronic)?:Acute Reason for exam?:right knee oa. pre-op for roboitc surgery Type of Exam?:Initial Additional signs and symptoms?:n/a CT Knee Right Without Contra ston 09-21-2019 Recent, nondisplaced , right medial tibial plateau fracture. Measures approximately 5.2 x 2.3 cm in the axial plane. Findings are not well seen on recent radiograph. Recent, right mildly depressed posterolateral tibial plateau fracture. Measures 2.8 x 1.2 cm in the axial plane. 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 No significant osteoarthritic changes of the right hip and ankle. / Workstation ID: [id number] [facility] EXAMINATION: CT KNEE RIGHT WITHOUT CONTRAST HISTORY: ORDERING SYSTEM PROVIDED HISTORY: Closed fracture of right tibial plateau, initial encounter, TECHNOLOGIST PROVIDED HISTORY: Illness/Other Reason for exam: right knee oa. pre-op for roboitc surgery Encounter Type: Initial Additional signs and symptoms: n/a ORDERING SYSTEM PROVIDED DIAGNOSIS CODES: S82.141A Closed fracture of right tibial plateau, initial encounter COMPARISON: 08/31/2019 and 07/15/2019 radiographs. TECHNIQUE: Axial CT imaging of the right hip, knee and ankle without contrast. Lorenzo protocol. Dose reduction techniques were achieved by using automated exposure control and/or adjustment of mA and/or kV according to patient size and/or use of iterative reconstruction technique. FINDINGS: KNEE: Recent nondisplaced medial tibial plateau fracture measures approximately 5.2 x 2.3 cm in the axial plane. Recent mildly depressed posterolateral tibial plateau fracture measures 2.8 x 1.2 cm in the axial plane. Medial knee compartment joint space narrowing with subchondral sclerosis, subchondral cystic changes and marginal osteophytosis. Marginal osteophytosis of the lateral and patellofemoral compartments. Small joint effusion. A few intraarticular bodies in the patellofemoral recess measuring up to 6 mm. Normal surrounding muscle bulk. HIP: No acute osseous abnormality. No CT evidence of avascular necrosis of the femoral head. Normal alignment. No significant hip osteoarthritis. No significant joint effusion. ANKLE: No acute osseous abnormality. Normal joint alignment. No significant tibiotalar osteoarthritis. Surrounding soft tissues appear unremarkable. [facility] Interface, Rad In Fu ji Speechq - 09/21/2019 7:02 PM EST EXAMINATION: CT KNEE RIGHT WITHOUT CONTRAST HISTORY: ORDERING SYSTEM PROVIDED HISTORY: Closed fracture of right tibial plateau, initial encounter, TECHNOLOGIST PROVIDED HISTORY: Illness/Other Reason for exam: right knee oa. pre-op for roboitc surgery Encounter Type: Initial Additional signs and symptoms: n/a ORDERING SYSTEM PROVIDED DIAGNOSIS CODES: S82.141A Closed fracture of right tibial plateau, initial encounter COMPARISON: 08/31/2019 and 07/15/2019 radiographs. TECHNIQUE: Axial CT imaging of the right hip, knee and ankle without contrast. Lorenzo protocol. Dose reduction techniques were achieved by using automated exposure control and/or adjustment of mA and/or kV according to patient size and/or use of iterative reconstruction technique. FINDINGS: KNEE: Recent nondisplaced medial tibial plateau fracture measures approximately 5.2 x 2.3 cm in the axial plane. Recent mildly depressed posterolateral tibial plateau fracture measures 2.8 x 1.2 cm in the axial plane. Medial knee compartment joint space narrowing with subchondral sclerosis, subchondral cystic changes and marginal osteophytosis. Marginal osteophytosis of the lateral and patellofemoral compartments. Small joint effusion. A few intraarticular bodies in the patellofemoral recess measuring up to 6 mm. Normal surrounding muscle bulk. HIP: No acute osseous abnormality. No CT evidence of avascular necrosis of the femoral head. Normal alignment. No significant hip osteoarthritis. No significant joint effusion. ANKLE: No acute osseous abnormality. Normal joint alignment. No significant tibiotalar osteoarthritis. Surrounding soft tissues appear unremarkable. IMPRESSION: Recent, nondisplaced, right medial tibial plateau fracture. Measures approximately 5.2 x 2.3 cm in the axial plane. Findings are not well seen on recent radiograph. Recent, right mildly depressed posterolateral tibial plateau fracture. Measures 2.8 x 1.2 cm in the axial plane. 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 No significant osteoarthritic changes of the right hip and ankle. / Workstation ID: [id number] [facility] XR Knee Complete Righton XR Knee Complete Right Exam Date/Time: 06/25/2019 13:27 EDT Reason for Exam: Pain, Traumatic Report STUDY: XR Knee Complete Right;; 06/25/2019 1:27 pm INDICATION: Pain, Traumatic. COMPARISON: 05/04/2014 ACCESSION NUMBER(S): [id number] ORDERING CLINICIAN: George Paulson FINDINGS: Four views of the right knee. The bones are diffusely osteopenic limiting evaluation. There is a large joint effusion. There is sclerosis with cortical irregularity along the lateral tibial plateau suspicious for a nondisplaced tibial plateau fracture. Mild cartilage loss with osteophytes. Old fracture deformity of the inferior patella. No dislocation. No definite additional fractures. IMPRESSION: Sclerosis and cortical irregularity along the lateral tibial plateau suspicious for a nondisplaced tibial plateau fracture. Large joint effusion. Correlation with MRI is suggested. FINAL REPORT Dictated: 06/25/2019 1:44 pm Inez Juarez MD Signed (Electronic Signature): 06/25/2019 1:44 pm Signed by: Inez Juarez MD Technologist: HECTOR [facility] BD Bone Density DEXAon 05-21 BD Bone Density DEXA Exam Date/Time: 05/21/2019 09:08 EDT Reason for Exam: POST MENOPAUSAL Report STUDY: BD Bone Density DEXA; 05/21/2019 9:08 am INDICATION: POST MENOPAUSAL. Evaluate for osteopenia/osteoporosis, COMPARISON: None. ACCESSION NUMBER(S): [id number] ORDERING CLINICIAN: Madhav Salazar FINDINGS: Standard measurements were obtained utilizing an [employer] X-ray Absorptiometry bone densitometer. Data obtained includes planar bone density measurements over the left hip and lumbar spine. Comparison of measured data and standardized mean data for a young adult population (when peak bone mass occurs) results in a T score. This represents the number of standard deviations above or below the mean of a young adult population. Comparison of measured data to standards from an age-adjusted population similarly yields a Z score. Left femoral neck Bone density: 0.607 g/cm2 T score:-2.2 Z Score:-2.6 Lumbar Spine (L1-4) Bone density: 0.777 g/cm2 T Score: -2.5 Z Score: -0.1 World Health Organization (WHO) criteria defines normal bone density as that which is less than 1 standard deviation below the mean of a young adult population. Osteopenia is defined as a measured bone density that is between 1 and 2.5 standard deviations below the mean of a young adult population. Osteoporosis is defined as a measured bone density that is greater than or equal to 2.5 standard deviations below the mean of a young adult population. IMPRESSION: Exam Date/Time: 05/21/2019 09:08 EDT Report According to World Health Organization criteria, bone mineral density of the left femoral neck is osteopenic where as the bone mineral density of the lumbar spine is osteoporotic.. The patient is at increased risk for fracture. Decrease in the bone mineral density of the lumbar spine by 1.3% since 04/29/2017. No change in the density of the left femoral neck since the previous study. FINAL REPORT Dictated: 05/21/2019 9:38 am Herve Gonzalez MD Signed (Electronic Signature): 05/21/2019 9:38 am Signed by: Herve Gonzalez MD Technologist: BALDEV [facility] MA Mamm Screen w/CAD if perf ormed bilaton 05-20-2019 MA Mamm Screen w/CAD if performed bilat Exam Date/Time: 05/20/2019 08:47 EDT Reason for Exam: SCREENING POST MENOPAUSAL Report STUDY: MA Mamm Screen w/CAD if performed bilat; 05/20/2019 8:47 am ACCESSION NUMBER(S): [id number] ORDERING CLINICIAN: Madhav Salazar INDICATION: Screening. COMPARISON: 04/29/2017 and 04/28/2015 FINDINGS: The breast tissue is almost entirely fatty. No suspicious masses or calcifications are identified. CAD was utilized. IMPRESSION: No mammographic evidence of malignancy. BI-RADS CATEGORY: Category: 1 - Negative. Recommendation: Normal Interval Follow-up, Over Age 40. Recall Interval: 12 Months. Breast Density: Fatty. For any future breast imaging appointments, please call [phone]). FINAL REPORT Dictated: 05/20/2019 10:21 am Herve Gonzalez MD Signed (Electronic Signature): 05/20/2019 10:21 am Signed by: Herve Gonzalez MD Technologist: AMY Assessment: BI-RADS Category 1-Negative Recommendation: Normal interval follow-up [facility] Vital Signs Date Time Vital Sign Value Performing Clinician Facility 01-22-2025 10:10-0400 Body height 160.02 cm Nicolle Pacheco SOLUTION MANAGER-C Work Phone: [facility] 01-22-2025 10:10-0400 Body mass index (BMI) [Ratio] 29.1 kg/m2 Nicolle Pacheco SOLUTION MANAGER-C Work Phone: [facility] 01-22-2025 10:10-0400 Body temperature 98 [degF] Nicolle Pacheco SOLUTION MANAGER-C Work Phone: [facility] 01-22-2025 10:10-0400 Body weight 74.55 kg Nicolle Hailey SOLUTION MANAGER-C Work Phone: [facility] 01-22-2025 10:10-0400 Diastolic blood pressure 82 mm[Hg] Nicolle Hailey SOLUTION MANAGER-C Work Phone: [facility] 01-22-2025 10:10-0400 Heart rate 80 /min Nicolle Hailey SOLUTION MANAGER-C Work Phone: [facility] 01-22-2025 10:10-0400 Respiratory rate 16 /min Nicolle Hailey SOLUTION MANAGER-C Work Phone: [facility] 01-22-2025 10:10-0400 SaO2% (BldA) [Mass fraction] 98 % Nicolle Hailey SOLUTION MANAGER-C Work Phone: [facility] 01-22-2025 10:10-0400 Systolic blood pressure 152 mm[Hg] Nicolle Hailey SOLUTION MANAGER-C Work Phone: [facility] 09-13-2024 07:59-0500 Body height 162.6 cm [facility] 09-13-2024 07:59-0500 Body mass index (BMI) [Ratio] 25.05 kg/m2 [facility] 09-13-2024 07:59-0500 Body weight 66.24 kg [facility] 11-27-2022 08:39-0500 Body mass index (BMI) [Ratio] 25.07 kg/m2 Madhav L Cloudscalinglinger Work Phone: XD-Wufhvbw-Mfzsrpq Work Phone: 11-27-2022 08:39-0500 Body surface area Derived from formula 1.71 m2 Madhav L Hellinger Work Phone: JO-Pzqzfik-Orqfjqj Work Phone: 11-27-2022 08:39-0500 Body weight 66.24 kg Madhav L Hellinger Work Phone: GG-Fpmvdpz-Qmqjznd Work Phone: 11-27-2022 08:39-0500 Diastolic blood pressure 82 mm[Hg] Madhav L Elissalinger Work Phone: PP-Hwtqpyv-Gtzjguh Work Phone: 11-27-2022 08:39-0500 Heart rate 87 /min Madhav L Elissalinger Work Phone: VC-Xncxkoe-Pyjcjwl Work Phone: 11-27-2022 08:39-0500 Systolic blood pressure 132 mm[Hg] Madhav L Elissalinger Work Phone: VM-Huwiehm-Fruvlfh Work Phone: 03-22-2022 08:22-0400 Body height 162.56 cm Madhav L Elissalinger Work Phone: [facility] 300 Work Phone: 03-22-2022 08:22-0400 Body mass index (BMI) [Ratio] 27.46 kg/m2 Madhav Brooks Bowerslinger Work Phone: [facility] 300 Work Phone: 03-22-2022 08:22-0400 Body surface area Derived from formula 1.78 m2 Madhav Bowerslinger Work Phone: [facility] 300 Work Phone: 03-22-2022 08:22-0400 Body temperature 97.1 [degF] Madhav Bowerslinger Work Phone: [facility] 300 Work Phone: 03-22-2022 08:22-0400 Body weight 72.58 kg Madhav L Hellinger Work Phone: [facility] 300 Work Phone: 02-22-2022 09:32-0400 Body height 162.56 cm Madhav L Elissalinger Work Phone: [facility] 300 Work Phone: 02-22-2022 09:32-0400 Body mass index (BMI) [Ratio] 27.46 kg/m2 Madhav L Hellinger Work Phone: [facility] 300 Work Phone: 02-22-2022 09:32-0400 Body surface area Derived from formula 1.78 m2 Madhav L Hellinger Work Phone: [facility] 300 Work Phone: 02-22-2022 09:32-0400 Body temperature 97.7 [degF] Madhav L Hellinger Work Phone: [facility] 300 Work Phone: 02-22-2022 09:32-0400 Body weight 72.58 kg Madhav L Elissalinger Work Phone: [facility] 300 Work Phone: 01-25-2022 09:32-0400 Body height 162.56 cm Madhav L Elissalinger Work Phone: [facility] 300 Work Phone: 01-25-2022 09:32-0400 Body mass index (BMI) [Ratio] 27.46 kg/m2 Madhav L Hellinger Work Phone: [facility] 300 Work Phone: 01-25-2022 09:32-0400 Body surface area Derived from formula 1.78 m2 Madhav L Hellinger Work Phone: [facility] 300 Work Phone: 01-25-2022 09:32-0400 Body temperature 97.3 [degF] Madhav Joseer Work Phone: [facility] 300 Work Phone: 01-25-2022 09:32-0400 Body weight 72.58 kg Madhav Joseer Work Phone: [facility] 300 Work Phone: 01-15-2022 10:06-0400 Body height 162.56 cm Madhav Joseer Work Phone: [facility] 300 Work Phone: 01-15-2022 10:06-0400 Body mass index (BMI) [Ratio] 27.68 kg/m2 Madhav Joseer Work Phone: [facility] 300 Work Phone: 01-15-2022 10:06-0400 Body surface area Derived from formula 1.78 m2 Madhav Joseer Work Phone: [facility] 300 Work Phone: 01-15-2022 10:06-0400 Body temperature 97.5 [degF] Madhav Joseer Work Phone: [facility] Work Phone: 01-15-2022 10:06-0400 Body weight 73.14 kg Madhav Joseer Work Phone: [facility] 300 Work Phone: 01-13-2022 15:05-0400 Diastolic blood pressure 67 mm[Hg] Madhav Bowerslinger Other Phone: [facility] 01-13-2022 15:05-0400 Heart rate 62 /min Madhav Joseer Other Phone: [facility] 01-13-2022 15:05-0400 Respiratory rate 18 /min Madhav Elissalinger Other Phone: [facility] 01-13-2022 15:05-0400 SaO2% (BldA) [Mass fraction] 96 % Madhav Hellinger Other Phone: [facility] 01-13-2022 15:05-0400 Systolic blood pressure 141 mm[Hg] Madhav Hellinger Other Phone: [facility] 01-13-2022 13:35-0400 Body height 165.1 cm Madhav Hellinger Other Phone: [facility] 01-13-2022 13:35-0400 Body temperature 97.52 [degF] Madhav Elissalinger Other Phone: [facility] 01-13-2022 13:35-0400 Body weight 66.4 kg Madhav Elissalinger Other Phone: [facility] 11-28-2021 13:40-0500 Body height 162.56 cm Madhav L Hellinger Work Phone: [facility] [address] DO Work Phone: 11-28-2021 13:40-0500 Body mass index (BMI) [Ratio] 27.81 kg/m2 Madhav L Hellinger Work Phone: [facility] [address] DO Work Phone: 11-28-2021 13:40-0500 Body surface area Derived from formula 1.79 m2 Madhav L Hellinger Work Phone: [facility] [address] DO Work Phone: 11-28-2021 13:40-0500 Body weight 73.48 kg Madhav L Hellinger Work Phone: [facility] [address] DO Work Phone: 11-28-2021 13:40-0500 Diastolic blood pressure 70 mm[Hg] Madhav L Hellinger Work Phone: [facility]Sgaezmh-Eagbsnvw [facility] 232 DO Work Phone: 11-28-2021 13:40-0500 Heart rate 69 /min Madhav L Hellinger Work Phone: IU-Hoxqtjz-Kcshmfxq [facility] 232 DO Work Phone: 11-28-2021 13:40-0500 Systolic blood pressure 122 mm[Hg] Madhav L Hellinger Work Phone: TM-Obauavp-Oohrqbic [facility] 232 DO Work Phone: 11-14-2021 09:24-0500 Body height 162.56 cm Madhav L Hellinger Work Phone: JN-Vfdgwdq-Mmrkqzv Work Phone: 11-14-2021 09:24-0500 Body mass index (BMI) [Ratio] 27.81 kg/m2 Madhav L Hellinger Work Phone: SG-Zpdqhng-Njbwajd Work Phone: 11-14-2021 09:24-0500 Body surface area Derived from formula 1.79 m2 Madhav L Hellinger Work Phone: HQ-Phfaoco-Espeurp Work Phone: 11-14-2021 09:24-0500 Body weight 73.48 kg Madhav L Hellinger Work Phone: LU-Drnzhnu-Gkmrfin Work Phone: 11-14-2021 09:24-0500 Diastolic blood pressure 75 mm[Hg] Madhav L Hellinger Work Phone: RL-Qwquutq-Vevswhx Work Phone: 11-14-2021 09:24-0500 Heart rate 69 /min Madhav L Hellinger Work Phone: WV-Oadnrct-Ofcomzm Work Phone: 02-09-2022 09:24-0500 Systolic blood pressure 133 mm[Hg] Madhav Salazar Work Phone: XI-Bwhctmo-Wdivzrh Work Phone: 09-18-2020 09:59-0500 BMI (Body Mass Index) 23.8 kg/m2 Shaun Hrut [facility] 09-18-2020 09:59-0500 Body weight 64.86 kg Shaun Hurt [facility] 09-18-2020 09:59-0500 Height 165.1 cm Shaun Hurt [facility] 11-08-2019 12:32-0500 BMI (Body Mass Index) 26.95 kg/m2 [facility]ler [facility] [place] Work Phone: 11-08-2019 12:32-0500 Body weight 71.22 kg Tayler [facility] [place] Work Phone: 11-08-2019 12:32-0500 BP Diastolic 63 mm[Hg] Tayler [facility] [place] Work Phone: 11-08-2019 12:32-0500 BP Systolic 112 mm[Hg] Tayler [facility] [place] Work Phone: 11-08-2019 12:32-0500 BSA (Body Surface Area) 1.76 m2 Tayler [facility] [place] Work Phone: 11-08-2019 12:32-0500 Height 162.56 cm Tayler [facility] [place] Work Phone: 11-08-2019 12:32-0500 Pulse (Heart Rate) 62 /min Tayler [facility] [place] Work Phone: 10-28-2019 14:21-0500 Body Temperature 97.9 [degF] Damari Sanchez [facility] 10-28-2019 14:21-0500 BP Diastolic 62 mm[Hg] Damari Sanchez [facility] 10-28-2019 14:21-0500 BP Systolic 120 mm[Hg] Damari Sanchez [facility] 10-28-2019 14:21-0500 Pulse (Heart Rate) 64 /min Damari Sanchez [facility] 10-28-2019 14:21-0500 Pulse Oximetry 98 % Damari Sanchez [facility] 10-28-2019 14:21-0500 Respiratory Rate 16 /min Damari Sanchez [facility] 10-28-2019 13:53-0500 Body Temperature 97.9 [degF] Galina Kuhn [facility] 10-28-2019 13:53-0500 BP Diastolic 62 mm[Hg] Galina [facility] 10-28-2019 13:53-0500 BP Systolic 120 mm[Hg] Galina [facility] 10-28-2019 13:53-0500 Pulse (Heart Rate) 64 /min Galina [facility] 10-28-2019 13:53-0500 Pulse Oximetry 98 % Galina Kuhn [facility] 10-28-2019 13:53-0500 Respiratory Rate 16 /min Galina [facility] 10-27-2019 15:40-0500 BP Diastolic 60 mm[Hg] Jeff Myers [facility] 10-27-2019 15:40-0500 BP Systolic 113 mm[Hg] Jeff Myers [facility] 10-27-2019 15:40-0500 Pulse (Heart Rate) 68 /min Jeff Myers [facility] 10-27-2019 15:40-0500 Pulse Oximetry 96 % Jeff Myers [facility] 10-27-2019 15:40-0500 Respiratory Rate 16 /min Jeff Myers [facility] 10-26-2019 14:21-0500 Body Temperature 98.1 [degF] Jeana [facility] 10-26-2019 14:21-0500 BP Diastolic 68 mm[Hg] Jeana [facility] 10-26-2019 14:21-0500 BP Systolic 130 mm[Hg] [facility] 10-26-2019 14:21-0500 Pulse (Heart Rate) 65 /min [facility] 10-26-2019 14:21-0500 Pulse Oximetry 98 % Jeana [facility] 10-25-2019 15:11-0500 Body Temperature 98.6 [degF] Jeff Myers [facility] 01-20-2020 15:11-0500 BP Diastolic 69 mm[Hg] Jeff Myers [facility] 10-25-2019 15:11-0500 BP Systolic 130 mm[Hg] Jeff Myers [facility] 10-25-2019 15:11-0500 Pulse (Heart Rate) 67 /min Jeff Myers [facility] 10-25-2019 15:11-0500 Pulse Oximetry 95 % eJff Myers [facility] 10-25-2019 15:11-0500 Respiratory Rate 16 /min Jeff Myers [facility] 10-22-2019 12:51-0500 BP Diastolic 72 mm[Hg] Jeff Myers [facility] 10-22-2019 12:51-0500 BP Systolic 134 mm[Hg] Jeff Myers [facility] 10-22-2019 12:51-0500 Pulse (Heart Rate) 65 /min Jeff Myers [facility] 10-22-2019 12:51-0500 Pulse Oximetry 96 % Jeff Myers [facility] 10-22-2019 12:51-0500 Respiratory Rate 16 /min Jeff Myers [facility] 10-22-2019 09:50-0500 Body Temperature 97.9 [degF] [facility] 10-22-2019 09:50-0500 BP Diastolic 70 mm[Hg] [facility] 10-22-2019 09:50-0500 BP Systolic 126 mm[Hg] [facility] 10-22-2019 09:50-0500 Pulse (Heart Rate) 50 /min [facility] 10-22-2019 09:50-0500 Pulse Oximetry 99 % [facility] 10-22-2019 09:50-0500 Respiratory Rate 16 /min [facility] 10-20-2019 14:31-0500 BP Diastolic 64 mm[Hg] Jeff Myers [facility] 10-20-2019 14:31-0500 BP Systolic 126 mm[Hg] Jeff Myers [facility] 10-20-2019 14:31-0500 Pulse (Heart Rate) 63 /min Jeff Myers [facility] 10-20-2019 14:31-0500 Pulse Oximetry 93 % Jeff Myers [facility] 10-20-2019 14:31-0500 Respiratory Rate 16 /min Jeff Myers [facility] 10-18-2019 16:14-0500 Body Temperature 97.81 [degF] Jeff Myers [facility] 10-18-2019 16:14-0500 BP Diastolic 58 mm[Hg] Jeff Myers [facility] 10-18-2019 16:14-0500 BP Systolic 111 mm[Hg] Jeff Myers [facility] 10-18-2019 16:14-0500 Pulse (Heart Rate) 61 /min Jeff Myers [facility] 10-18-2019 16:14-0500 Pulse Oximetry 94 % Jeff Myers [facility] 10-18-2019 16:14-0500 Respiratory Rate 16 /min Jeff Myers [facility] 10-18-2019 12:48-0500 Body Temperature 97.3 [degF] George Barnard [facility] 10-18-2019 12:48-0500 BP Diastolic 80 mm[Hg] George Akil [facility] 10-18-2019 12:48-0500 BP Systolic 122 mm[Hg] [facility] 10-18-2019 12:48-0500 Pulse (Heart Rate) 65 /min George Akil [facility] 10-18-2019 12:48-0500 Pulse Oximetry 99 % George Barnard [facility] 10-18-2019 12:48-0500 Respiratory Rate 16 /min George Akil [facility] 10-15-2019 14:00-0500 Body Temperature 97.5 [degF] Damari Sanchez [facility] 10-15-2019 14:00-0500 BP Diastolic 78 mm[Hg] Damari Sanchez [facility] 10-15-2019 14:00-0500 BP Systolic 124 mm[Hg] [facility] 14:[facility]-0500 Pulse (Heart Rate) 68 /min Damari Sanchez [facility] 10-15-2019 14:00-0500 Pulse Oximetry 97 % Damari Sanchez [facility] 10-15-2019 10:38-0500 Body Temperature 97.9 [degF] Yari Travis [facility] 10-15-2019 10:38-0500 BP Diastolic 68 mm[Hg] Yari Travis [facility] 10-15-2019 10:38-0500 BP Systolic 104 mm[Hg] Yari Travis [facility] 10-15-2019 10:38-0500 Pulse (Heart Rate) 66 /min Yari Travis [facility] 10-15-2019 10:38-0500 Pulse Oximetry 98 % Yari Travis [facility] 10-15-2019 10:38-0500 Respiratory Rate 18 /min Yari Travis [facility] 10-14-2019 10:05-0500 Respiratory Rate 15 /min Shaun Hurt [facility] 10-14-2019 07:52-0500 Body Temperature 98.01 [degF] Shuan Hurt [facility] 10-14-2019 07:52-0500 BP Diastolic 70 mm[Hg] Shaun Hurt [facility] 10-14-2019 07:52-0500 BP Systolic 110 mm[Hg] Shaun Hurt [facility] 10-14-2019 07:52-0500 Pulse (Heart Rate) 65 /min Shaun Hurt [facility] 10-14-2019 07:52-0500 Pulse Oximetry 97 % Shaun Hurt [facility] 10-13-2019 08:39-0500 BMI (Body Mass Index) 23.85 kg/m2 Shaun Hurt [facility] 10-13-2019 08:39-0500 Body weight 65 kg Shaun Hurt [facility] 10-13-2019 08:39-0500 Height 165.1 cm Shaun Hurt [facility] 10-07-2019 09:09-0500 BP Diastolic 64 mm[Hg] Cristal Alex [facility] 10-07-2019 09:09-0500 BP Systolic 124 mm[Hg] Cristal Lindquisthmy [facility] 10-07-2019 09:09-0500 Pulse (Heart Rate) 59 /min Cristal Lindquisthmy [facility] 09-24-2019 14:09-0500 BMI (Body Mass Index) 24.15 kg/m2 Cristal Isai [facility] 09-24-2019 14:09-0500 Body weight 65.82 kg Cristal Alex [facility] 09-24-2019 14:09-0500 BP Diastolic 73 mm[Hg] [facility] 14:09-0500 BP Systolic 113 mm[Hg] Cristal Lindquisthmy [facility] 09-24-2019 14:09-0500 Height 165.1 cm Cristal Lindquisthmy [facility] 09-24-2019 14:09-0500 Pulse (Heart Rate) 74 /min Cristal Lindquisthmy [facility] 09-24-2019 14:09-0500 Pulse Oximetry 95 % Cristal Alex [facility] 06-28-2019 13:51-0400 BMI (Body Mass Index) 23.3 kg/m2 [facility] 06-28-2019 13:51-0400 Body weight 63.5 kg [facility] 06-28-2019 13:51-0400 Height 165.1 cm [facility] Encounters Encounter Date Encounter Type Care Provider Facility Start: 05-02-2025 End: 05-02-2025 ambulatory Nicolle Pacheco SOLUTION MANAGER-C Work Phone: -Radiology [facility] Start: 05-02-2025 End: 05-02-[address] Amanda Jimenez MD -Radiology [facility] Work Phone: Start: 05-02-2025 End: 05-02-2025 ambulatory Amanda Jimenez Facility:[facility] Start: 02-01-2025 End: 02-01-2025 ambulatory [place]iley SOLUTION MANAGER-C Work Phone: [facility] Work Phone: Start: 02-01-2025 End: 02-01-2025 Patient encounter procedure Nicolle Pacheco SOLUTION MANAGER-C -Laboratory, [place] Work Phone: Start: 02-01-2025 End: 02-01-2025 [facility] Facility:[facility] Start: 01-24-2025 End: 01-24-2025 Patient encounter procedure Fouzia Schaffer SOLUTION MANAGER-C -Laboratory, [facility] Work Phone: Start: 01-24-2025 End: 01-24-2025 ambulatory Fouzia Schaffer Facility:[facility] Start: 01-22-2025 End: 01-22-2025 Patient encounter procedure Fouzia Schaffer SOLUTION MANAGER-C -[facility] Work Phone: Start: 01-22-2025 End: 01-22-2025 ambulatory Fouzia Schaffer Facility:[facility] Start: 09-13-2024 End: 09-13-2024 Subsequent hospital visit by physician Luis [id number] [facility] Comment on above: Encounter for screen ing mammogram for malignant neoplasm of breast Start: 09-13-2024 End: 09-13-2024 ambulatory [facility] Start: 08-17-2024 End: 08-17-2024 ambulatory [facility] Facility:[facility] Start: 02-03-2024 End: 02-03-2024 ambulatory [facility] Work Phone: Start: 02-03-2024 End: 02-03-2024 Patient encounter procedure [facility]-Laboratory, Aleyda Potter [facility] Start: 12-02-2022 AUDIT Madhav barakat Work Phone: [facility] Work Phone: Start: 11-27-2022 Office outpatient vi sit 15 minutes Madhav Salazar Work Phone: [facility]Ukkzqqi[facility]Iowisbt Work Phone: Start: 11-27-2022 ambulatory Ms. Madhav Salazar Facility:[id number] Start: 03-25-2022 Chart Update Madhav barakat Work Phone: [facility] 300 Work Phone: Start: 03-22-2022 Postop follow up vis it related to original px Madhav L Elissalinger Work Phone: [facility] 300 Work Phone: Start: 03-22-2022 ambulatory Ms. Sahra Sharpe Facility:9763 Start: 02-22-2022 Postop follow up vis it related to original px Madhav L Hellinger Work Phone: [facility] 300 Work Phone: Start: 02-22-2022 ambulatory Ms. Sahra Sharpe Facility:9763 Start: 01-25-2022 Postop follow up vis it related to original px Madhav L Hellinger Work Phone: [facility] 300 Work Phone: Start: 01-25-2022 ambulatory Ms. Sahra Sharpe Facility:9763 Start: 01-15-2022 Office outpatient ne w 30 minutes Madhav Salazar Work Phone: [facility] 300 Work Phone: Start: 01-15-2022 ambulatory Ms. Sahra Sharpe Facility:9763 Start: 01-13-2022 End: 01-13-2022 Emergency department patient visit Eden Willoughby [facility] Emergency 11 Start: 11-28-2021 Patient encounter procedure Madhav Salazar Work Phone: [facility] 232 DO Work Phone: Start: 11-28-[address] [place] Facility:9475 Start: 11-14-2021 Office outpatient vi sit 15 minutes Madhav Salazar Work Phone: [facility] Work Phone: Start: 11-23-2020 End: 11-23-2020 Orders Only Yandy Wheat Adriansravanthi Work Phone: [facility] Start: 09-18-2020 End: 09-22-2020 [facility]: 09-18-[facility] End: 09-18-2020 Office outpatient visit 10 minutes Shaun Hurt Work Phone: [facility] Comment on above: Status post total ri ght knee replacement (Primary Dx) Start: 04-28-2020 End: 05-02-2020 Patient encounter procedure SHAUN HURT [facility] Start: 04-28-2020 End: 04-28-2020 Office outpatient visit 10 minutes Shaun Hurt Work Phone: [facility] Comment on above: Status post total ri ght knee replacement (Primary Dx) Start: 12-08-2019 Patient encounter procedure SARBJIT SINGH [facility] Start: 11-29-2019 End: 12-03-2019 Patient encounter procedure SARBJIT SINGH [facility] Start: 11-29-2019 End: 11-29-2019 Postop follow up visit related to original px Shaun Hurt Work Phone: [facility] Comment on above: Status post total ri ght knee replacement (Primary Dx) Start: 11-29-2019 Patient encounter procedure Tayler Pope [facility] Work Phone: Start: 11-26-2019 Patient encounter procedure Tayler Pope [facility] Work Phone: Start: 11-24-2019 Patient encounter procedure Tayler Pope [facility] Work Phone: Start: 11-22-2019 Patient encounter procedure Tayler Pope [facility] Work Phone: Start: 11-19-2019 Patient encounter procedure Tayler Pope [facility] Work Phone: Start: 11-17-2019 Patient encounter procedure Tayler Pope [facility] Work Phone: Start: 11-15-2019 Patient encounter procedure Tayler Pope [facility] Work Phone: Start: 11-12-2019 Patient encounter procedure Tayler Pope [facility] Work Phone: Start: 11-08-2019 Patient encounter procedure Tayler Pope [facility] Work Phone: Start: 11-08-2019 Patient encounter procedure Tayler Pope [facility] Work Phone: Start: 11-05-2019 Patient encounter procedure Tayler Pope [facility] Work Phone: Start: 11-01-2019 Patient encounter procedure Tayler Pope [facility] Work Phone: Start: 11-01-2019 End: 11-01-2019 Patient encounter procedure SARBJIT SINGH [facility] Start: 11-01-2019 End: 11-01-2019 Postop follow up visit related to original px Shaun Hurt Work Phone: [facility] Comment on above: Status post total ri ght knee replacement (Primary Dx) Start: 10-28-2019 End: 10-28-2019 Home visit Galina Kuhn [facility] Comment on above: SN HH OASIS DISCHARG E PT NON-OASIS/DISCIPL INE DISCHARGE Start: 10-26-2019 End: 10-27-2019 Home visit Jeana Quarles [facility] Comment on above: PHLEBOTOMY PROGRAM COORDINATOR HH ROUTINE THERAPEUTIC PROGRAM WORKER ROUTINE VISIT Start: 10-25-2019 End: 10-25-2019 Home visit Jeff Myers [facility] Comment on above: THERAPEUTIC PROGRAM WORKER ROUTINE VISIT Start: 10-22-2019 End: 10-22-2019 Home visit Jeff Myers [facility] Comment on above: THERAPEUTIC PROGRAM WORKER ROUTINE VISIT SN HH ROUTINE VISIT Start: 10-21-2019 End: 10-21-2019 Documentation procedure Nikole Vang [facility] Start: 10-20-2019 End: 10-20-2019 Home visit Jeff Myers [facility] Comment on above: THERAPEUTIC PROGRAM WORKER ROUTINE VISIT Start: 10-18-2019 End: 10-18-2019 Home visit Jeff Myers [facility] Comment on above: THERAPEUTIC PROGRAM WORKER ROUTINE VISIT SN ROUTINE VISIT Start: 10-15-2019 End: 10-15-2019 Home visit Yari Travis [facility] Comment on above: SN HH OASIS START OF CARE PT INITIAL EVALUATIO N Start: 10-13-2019 End: 10-13-2019 Admission to establishment Sarbjit Singh [facility] Start: 10-13-2019 End: 10-28-2019 Patient encounter procedure SHAUN HURT [facility] Start: 10-13-2019 End: 10-14-2019 Subsequent hospital visit by physician Shaun Hurt Work Phone: [facility] Comment on above: S/P total knee arthr oplasty, right (Primary Dx); Closed fracture of right tibial plateau, initial encounter Start: 10-11-2019 End: 10-11-2019 Patient encounter procedure SARBJIT SINGH [facility] Work Phone: Start: 10-08-2019 Patient encounter procedure Tayler Pope [facility] Work Phone: Start: 10-07-2019 End: 10-08-2019 Patient encounter procedure CRISTAL ISAI [facility] Start: 10-07-2019 End: 10-07-2019 Subsequent hospital visit by physician Cristal Alex Work Phone: [facility] Comment on above: Arrived Preop cardiovascular exam; Abnormal ECG Start: 10-04-2019 Patient encounter procedure Tayler Pope [facility] Work Phone: Start: 10-01-2019 Patient encounter procedure Tayler Pope [facility] Work Phone: Start: 09-27-2019 Patient encounter procedure Tayler Pope [facility] Work Phone: Start: 09-24-2019 End: 09-24-2019 Patient encounter procedure SARBJIT SINGH [facility] Start: 09-24-2019 End: 09-24-2019 Office outpatient new 45 minutes Shaun Hurt Work Phone: [facility] Comment on above: Abnormal ECG (Primar y Dx); Closed fracture of right tibial plateau, initial encounter; High cholesterol; Disease of thyroid gland; Preop cardiovascular exam Start: 09-24-2019 Patient encounter procedure Tayler Pope [facility] Work Phone: Start: 09-22-2019 Patient encounter procedure Tayler Pope [facility] Work Phone: Start: 09-21-2019 End: 09-25-2019 Patient encounter procedure SHAUN HURT [facility] Start: 09-21-2019 End: 09-21-2019 Subsequent hospital visit by physician Shaun Hurt Work Phone: [facility] CT Scan Comment on above: Closed fracture of r ight tibial plateau, initial encounter Start: 09-20-2019 Patient encounter procedure Tayler ALVARES [facility] Work Phone: Start: 09-17-2019 Patient encounter procedure Tayler ALVARES [facility] Work Phone: Start: 09-15-2019 Patient encounter procedure Tayler ALVARES [facility] Work Phone: Start: 09-13-2019 Patient encounter procedure Tayler ALVARES [facility] Work Phone: Start: 09-10-2019 Patient encounter procedure Tayler ALVARES [facility] Work Phone: Start: 08-31-2019 End: 08-31-2019 Office outpatient visit 15 minutes Tia Churchill Work Phone: [facility] Comment on above: Closed fracture of r ight tibial plateau, initial encounter (Primary Dx); Primary osteoarthritis of left knee Start: 07-15-2019 End: 07-15-2019 Office outpatient visit 15 minutes Tia Churchill Work Phone: [facility] Comment on above: Closed fracture of r ight tibial plateau, initial encounter (Primary Dx) Start: 07-13-2019 End: 07-14-2019 Patient encounter procedure PROVIDER NOT IN SYSTEM [facility] Start: 06-28-2019 End: 06-28-2019 Office outpatient new 30 minutes Tiaobie Churchill Work Phone: [facility] Comment on above: Closed fracture of r ight tibial plateau, initial encounter (Primary Dx) Procedures Date Procedure Procedure Detail Performing Clinician Start: 05-02-2025 X-ray of knee, one o r two views Nicolle Pacheco NP-C Work Phone: Start: 05-02-2025 X-ray of lumbar spin e, two or three views Nicolle Hailey SOLUTION MANAGER-C Work Phone: Start: 05-02-2025 X-ray of sacrum and coccyx, two or more views Nicolle Pacheco SOLUTION MANAGER-C Work Phone: Start: 01-24-2025 Urine culture Nicolle Alejandre sophie SOLUTION MANAGER-C Work Phone: Start: 09-13-2024 Screening digital br east tomosynthesis bi Nicolle Pacheco EQUIPMENT SERVICE ENGINEER-DIRECT CARE SUPERVISOR Work Phone: Start: 10-14-2019 Basic metabolic 2000 panel - Serum or Plasma Shaun Hurt Work Phone: Start: 10-14-2019 Hemoglobin and Hemat ocrit panel - Blood Shaun Hurt Work Phone: Start: 10-13-2019 Radiologic examinati on knee 1/2 views Shaun Hurt Work Phone: Start: 10-13-2019 End: 10-13-2019 ARTHROPLASTY KNEE TOTAL ROBOTIC Shaun Hurt Work Phone: Start: 10-13-2019 Procedure on tissue specimen Shaun Hurt Work Phone: Start: 10-07-2019 Radionuclide myocard ial perfusion study Cristal Lindquisthmy Work Phone: Start: 09-21-2019 Ct lower extremity w /o contrast material Shaun Hurt Work Phone: Arthroplasty of knee Tayler Pope Cataract surgery Tayler Rodarte rs Cholecystectomy Tayler Dailey s Colonoscopy Tayler Pope Ligation of fallopian tube J essanahi Pope Operation on bladder Tayler Pope Plan of Treatment Date Care Activity Detail Author Start: 03-21-2032 DTaP/Tdap/Td Vaccine s (3 - Td or Tdap) DTaP/Tdap/Td Vaccines (3 - Td or Tdap) [facility] Start: 09-12-2025 Screening for osteoporosis Bone Density Scan [facility] Start: 05-03-2022 FUV, Provider: Sahra Sharpe, Status: Pen, Time: 9:00 AM FUV, Provider: Sahra Sharpe, Status: Pen, Time: 9:00 [facility] 300 Work Phone: Start: 03-22-2022 FUV, Provider: Sahra Sharpe, Status: Pen, Time: 9:30 AM FUV, Provider: Sahra Sharpe, Status: Pen, Time: 9:30 AM [facility] 300 Work Phone: Start: 02-22-2022 FUV, Provider: Sahra Sharpe, Status: Pen, Time: 9:30 AM FUV, Provider: Sahra Sharpe, Status: Pen, Time: 9:30 AM [facility] 300 Work Phone: Start: 01-25-2022 FUV, Provider: Sahra Sharpe, Status: Pen, Time: 9:30 AM FUV, Provider: Sahra Sharpe, Status: Pen, Time: 9:30 AM [facility] 300 Work Phone: Start: 01-19-2022 Tetanus vaccination [facility] Start: 11-28-2021 CYSTOSCOPY, Provider : [facility] PROCEDURE RM,[id number], Status: Pen, Time: 1:15 PM CYSTOSCOPY, Provider: SHINTO UROLOGY PROCEDURE RM,[id number], Status: Pen, Time: 1:15 PM [facility] Work Phone: Start: 09-14-2021 End: 09-14-2021 Office Visit 09/14/2021 Office Visit Sports Medicine Shaun Hurt MD [address] [place] [address] [phone] [facility] Start: 09-15-2020 End: 09-15-2020 Office Visit 09/15/2020 Office Visit Sports Medicine Shaun Hurt MD [address] [place] [address] [phone] [facility] Start: 06-06-2020 Influenza vaccinatio n given Sequential Influenza Vaccine (#1) [facility] Start: 11-29-2019 End: 11-29-2019 Follow-Up 11/29/2019 Follow-Up Sports Medicine Shaun Hurt MD [address] [place] [address] [phone] [facility] Start: 11-05-2019 End: 11-05-2019 Appointment 11/05/2019 Appointment Home Health Services George Barnard RN [facility] Start: 11-01-2019 End: 11-02-2019 Follow-Up [facility] Start: 10-29-2019 End: 10-29-2019 Home Care Visit 10/29/2019 Home Care Visit Home Health Services Damari Sanchez PT [facility] Start: 10-29-2019 End: 10-29-2019 Home Care Visit 10/29/2019 Home Care Visit Home Health Services George Barnard RN [facility] Start: 10-26-2019 End: 10-27-2019 Home Care Visit [facility] Start: 10-26-2019 End: 10-26-2019 Home Care Visit 10/26/2019 Home Care Visit Home Health Services George Barnard RN [facility] Start: 10-25-2019 End: 10-25-2019 Home Care Visit 10/25/2019 Home Care Visit Home Health Services Jeff Myers PTA [facility] Start: 10-22-2019 End: 10-22-2019 Home Care Visit [facility] Start: 10-22-2019 End: 10-22-2019 Home Care Visit 10/22/2019 Home Care Visit Home Health Services George Barnard RN [facility] Start: 10-20-2019 End: 10-20-2019 Home Care Visit 10/20/2019 Home Care Visit Home Health Services Jeff Myers PTA [facility] Start: 10-19-2019 End: 10-19-2019 Home Care Visit 10/19/2019 Home Care Visit Home Health Services George Barnard RN [facility] Start: 10-15-2019 End: 10-15-2019 Appointment 10/15/2019 Appointment Home Health Services Yari Travis RN [facility] Start: 10-13-2019 End: 10-13-2019 Hospital Encounter [facility] Comment on above: Right Total Knee Rep lacement Robotic cemented Start: 10-11-2019 End: 10-11-2019 Surgical Consult 10/11/2019 Surgical Consult Sports Medicine Shaun Hurt MD [address] [place] [address] [phone] [facility] Start: 10-07-2019 End: 10-07-2019 Appointment 10/07/2019 Appointment Cardiology Cristal Alex MD [address] [place] [address] [phone] [facility] Start: 09-24-2019 End: 09-24-2019 Office Visit 09/24/2019 Office Visit Cardiology Shaun Hurt MD [address] [place] [address] [phone] Cristal Aelx MD [address] [place] [address] [phone] [facility] Start: 08-31-2019 End: 08-31-2019 Office Visit 08/31/2019 Office Visit Sports Medicine Tia Churchill, MANUELITO [address] [place] [address] [phone] [facility] Start: 07-15-2019 End: 07-15-2019 Office Visit [facility] Start: 06-06-2019 Influenza vaccinatio n given SEQUENTIAL INFLUENZA VACCINE (#1) [facility] Start: 2010 Pneumococcal vaccination PNEUMOCOCCAL VACCINE AGE 65+ (1 of 2 - PCV13) [facility] Start: 12-27-1995 Administration of herpes zoster vaccine Zoster Vaccines (1 of 2) [facility] Start: 12-27-1995 Screening for malign ant neoplasm of colon [facility] Start: 12-27-1963 Hepatitis C antibody , confirmatory test Hepatitis C Screening [facility] Start: 12-27-1963 Hepatitis C screening Hepatitis C [facility] Start: 1961 COVID-19 Vaccine (1 of 2) COVID-19 Vaccine (1 of 2) [facility] Start: 1957 Adolescent depressio n screening assessment Depression Screening (PHQ9) [facility] Start: 1948 History and physical examination, annual for health maintenance Wellness Visit [facility] Start: 1945 Depression screening using PHQ-9 (Patient Health Questionnaire 9) score DEPRESSION SCREENING (PHQ9) [facility] Start: 1945 Fall risk assessment Falls Risk Asse ssment [facility] Start: 1945 Hepatitis C antibody , confirmatory test HEPATITIS C SCREENING [facility] Start: 1945 Lipid panel Lipid Panel [facility] Start: 1945 Medicare Annual Wellness Visit Medicare Annual Wellness Visit (AWV) [facility] Start: 1945 Screening for malign ant neoplasm of colon Colorectal Cancer Screening: Colonoscopy [facility] Start: 1945 Screening for osteoporosis Dexa Scan [facility] Start: 1945 Screening mammography [facility]ammogram [facility] Start: 1945 Tetanus vaccination TETANUS EVERY 10 YR [facility] End: 09-24-2020 Radionuclide myocardial perfusion study NM Myocardial Perfusion Multiple SPECT Imaging Routine Preop cardiovascular exam Abnormal ECG 1 Occurrences starting 09/24/2019 until 09/24/2020 [facility] Comment on above: 1 Occurrences starti ng 09/24/2019 until 09/24/2020 NEGATED: Highlighted row has been ruled out! Planned Goals not documented [facility] Work Phone: Payers Date Payer Category Payer Self-pay 2021 Medicare (Managed Care) [employer] GO LDEN MEDICARE [id number] 2021 Private Health Insurance 101 [id number] 2015 Medicare AETNA MANAGED [place] DICJIA AETNA MEDICARE PLAN (PPO) xxxxxxxx 2015-Present [id number] 2015 Medicare [id number] 2015 Medicare AETNA MANAGED [place] AETNA MEDICARE PLAN (PPO) [id number] 2015-Present [id number] 1945 Unknown [id number] 2.16.840.1.941625.3.579.2. 900 1945 Unknown [id number] 2.16.840.1.223658.3.579.2. 903 1945 Unknown [id number] 2.16.840.1.246626.3.579.2. 903 1945 Unknown [id number] 2.16.840.1.583411.3.579.2. 903 1945 Unknown [id number] 2.16.840.1.289628.3.579.2. 903 1945 Unknown [id number] 2.16.840.1.143007.3.579.2. 903 1945 Unknown [id number] 2.16.840.1.575634.3.579.2. 903 1945 Unknown [id number] 2.16.840.1.297434.3.579.2. 903 1945 Unknown [id number] 2.16.840.1.707057.3.579.2. 903 1945 Unknown [id number] 2.16.840.1.357149.3.579.2. 903 1945 Unknown [id number] 2.16.840.1.327013.3.579.2. 903 1945 Unknown [id number] 2.16.840.1.640436.3.579.2. 903 1945 Unknown [id number] 2.16.840.1.371612.3.579.2. 903 1945 Unknown [id number] 2.16840.1.916014.3.579.2. 903 1945 Unknown [id number] 2.16840.1.730719.3.579.2. 903 1945 Unknown [id number] 2.840.1.991211.3.579.2. 903 1945 Unknown [id number] 2.840.1.633222.3.579.2. 90 1945 Unknown [id number] 2.840.1.142666.3.579.2. 903 1945 Unknown [id number] 2.840.1.582450.3.579.2. 903 1945 Unknown [id number] 2.840.1.921236.3.579.2. 903 1945 Unknown [id number] 2.840.1.814907.3.579.2. 356 1945 Unknown [id number] 2.16840.1.585980.3.579.2. 356 1945 Unknown [id number] 2.16840.1.553973.3.579.2. 356 1945 Unknown [id number] 2.16840.1.993646.3.579.2. 356 1945 Unknown [id number] 2.16840.1.571921.3.579.2. 356 1945 Unknown [id number] 2.16.840.1.867003.3.579.2. 356 1945 Unknown [id number] 2.16.840.1.992407.3.579.2. 1243 Unknown Unknown [id number] 2.16.840.1.251485.3.579.2. 462 Unknown [id number] 2.16.840.1.291060.3.579.2. 462 Unknown [id number] 2.16.840.1.540784.3.579.2. 462 Unknown [id number] 2.16.840.1.701472.3.579.2. 462 Unknown [id number] 2.16.840.1.814114.3.579.2. 462 Social History Date Type Detail Facility Start: 06-28-2019 End: 01-22-2025 Tobacco smoking status NCIS Never smoker [facility] Start: 06-28-2019 End: 10-13-2019 Alcohol intake Ex-drinker (finding) [facility] Start: 1945 Sex Assigned At Not on file [facility] Start: 09-03-2024 End: 09-13-2024 Exposure to SARS-CoV-2 (event) Not sure [facility] Start: 09-18-2020 Tobacco use and exposure Never used [facility] Never a smoker Never a smoker [facility] [place] Work Phone: Tobacco smoking consumption unknown [facility] Start: 1945 Sex Assigned At Female [facility] Gender identity Not on file [facility] ospitals [facility] Work Phone: NEGATED: Highlighted row - - [facility] Work Phone: Medical Equipment Procedure Code Equipment Code Equipment Origin al Text Equipment Identifier Dates Cement Bone Radiopaque Simplex P Single Dose - [id number] ()[id number] FDA Start: 10-13-2019 Patella 32mm Asymmetric X3 Triathlon [id number] - [id number] ()[id number], [id number] FDA Start: 10-13-2019 Baseplate Sz4 Primary Tib Triathlon - [id number] ()[id number], [id number] FDA Start: 10-13-2019 Insert Sz4-11 Ti bial Cr X3 Triathlon - [id number] ()[id number], [id number] FDA Start: 10-13-2019 Component 4 Femo ral Cr Rt Cemented Triathlon - [id number] ()[id number], [id number] FDA Start: 10-13-2019 Functional Status Date Assessment Result Facility NEGATED: Highlighted row Functional performance Functional status health issues are not documented [facility] Work Phone: Mental Status Date Assessment Result Facility NEGATED: Highlighted row Cognitive function [Interpretation] Cognitive status health issues are not documented [facility] Phone: Clinical Notes 01-13-2012 to 05-04-2025 Note Date & Type Note Facility 05-04-2025 Radiology Diagnostic study note [facility] Services [address] [place] [address] [id number] Lumbar Spine 2 or 3 Views MR#: [id number] Acct: [id number] Name: CAROL GRIMM Rep #: [id number] : 1945 F 79 From: Kevin Cummins MD PCP: Nicolle Pacheco, SOLUTION MANAGER-C Status: REG CLI Study:Lumbar Spine 2 or 3 Views Date of Exam: 05/02/25 Exam# [id number] Ordering Dr: Donta Jimenez MD PROCEDURE: LUMBAR SPINE 2 OR 3 VIEWS 05/02/2025 REASON FOR EXAM: BACK PAIN TECHNIQUE: Frontal and lateral view radiographs of the lumbar spine. COMPARISON: None. FINDINGS: No evidence of acute fracture or subluxation. Vertebral bodies are preserved inheight. Trace degenerative retrolisthesis of L3 on L4. Slight dextroscoliotic curvature. Mild multilevel spondylotic changes with varying degrees of disc space narrowing, endplate sclerosis, anterior osteophytosis, and hypertrophic facet arthropathy. No osseous lytic or blastic lesion appreciated. Cholecystectomy surgical clips. RAD/Lumbar Spine 2 or 3 Views IMPRESSION: No evidence of acute fracture or subluxation. Multilevel degenerative changes as described. Reading Location: [id number] CC: SOLUTION MANAGER-C Nicolle Pacheco; Dr. Amanda Jimenez MD ~ Foreign Language Professor: Signed [facility] 05-04-2025 Radiology Diagnostic study note [facility] Services [address] [place] [address] Sacrum-Coccyx min 2 Views MR#: [id number] Acct: [id number] Name: CAROL GRIMM Rep #: [id number] : 1945 F 79 From: Isabella Apple MD PCP: DEVANG Obando Status: REG CLI Study:Sacrum-Coccyx min 2 Views Date of Exam: 05/02/25 Exam# [id number] Ordering Dr: Donta Jimenez MD 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 Osteoporosis. No acute bone or soft tissue pathology. RAD/Sacrum-Coccyx min 2 Views IMPRESSION: No acute sacral pathology. Reading Location: [place] [address] CC: DEVANG Pacheco; Dr. Amanda Jimenez MD ~ Foreign Language Professor: Signed [facility] 05-03-2025 Radiology Diagnostic study note [facility] Services [address] [place] [address] Knee 1 or 2 Views MR#: [id number] Acct: [id number] Name: CAROL GRIMM Rep #: [id number] : [id number] F [id number] From: Kevin Cummins MD PCP: DEVANG Obando Status: REG CLI Study:Knee 1 or 2 Views Date of Exam: Exam# [id number] Ordering Dr: Donta Jimenez MD PROCEDURE: RIGHT KNEE 1 OR 2 VIEWS 05/02/2025 REASON FOR EXAM: KNEE PAIN TECHNIQUE: RIGHT KNEE 1 OR 2 VIEWS COMPARISON: None. FINDINGS: No evidence of acute fracture or dislocation. Status post total cemented right knee arthroplasty. Hardware is intact without evidence for loosening or failure. Preserved joint spaces. No knee joint effusion. Qualitative osteopenia. No marked soft tissue swelling. RAD/Knee 1 or 2 Views IMPRESSION: 1. No acute fracture or dislocation. 2. Total right knee arthroplasty, with intact hardware. Reading Location: [facility] CC: SOLUTION MANAGER-Richard Pacheco; Dr. Amanda Jimenez MD ~ Foreign Language Professor: Signed [facility] 01-22-2025 Evaluation note Diagnosis Onset Date Resolution Urinary tract infection noneactive January 22, 2025 10:06am [facility] Work Phone: [phone]) [phone] History of Present illness NarrativePatient is here today for follow-up of her left tibial plateau fracture and patella fracture nondisplaced on 01/12/2022. She is been compliant with the knee immobilizer however does mention she is probably putting more weight on the leg than what I recommended. She denies any major pain but does notethat it is worse at the end of the day. She has been taking ibuprofen which seems to relieve the pain. No new injuries. She has been taking aspirin as instructed.[facility] [address] Work Phone: [phone] 671-625404-09-2022 History of Present illness NarrativePatient is here today for follow-up of her left patella fracture and tibial plateau fracture that is nondisplaced on 01/12/2022. She denies any pain she is been utilizing the knee immobilizer. She has been putting weight on the leg despite toe-touch orders.[facility] [address] Work Phone: [phone]) 473-197504-09-2022 History of Present illness Yogi is here today for follow-up of her left knee patella and tibial plateau fracture from 01/12/2022. She denies any major pain today or swelling. She did mention about a week and a half ago she overdid activity which flared the pain in her left knee. She does admit to a fall however does not seem to have affected her condition. She has been working on range of motion and some physical therapy however this has been limited secondary to pain flareup. No major concerns today.[facility] [address] Work Phone: [phone] History of Present illness Yogi presents to the office today for a Yearly F/U. Patient has a Chronic Hx of UTI's...Patient states she has not had any infections over the past couple years....No recent sx...chronic LUTS sx are minimal...No urgency or frequency...No dysuria...No hematuria...Nocturia 1x...caffeine does worsen sx...EMERITA sx are minimal...She takes daily prophylaxis (Trimethoprim) [facility] Work Phone: [phone]) [phone] History of Present illness NarrativeIsabella presents to the office today for a Yearly F/U. Patient has a Chronic Hx of UTI's...Patient states she has not had any infections over the past couple years....No recent sx...chronic LUTS sx are minimal...No urgency or frequency...No dysuria...No hematuria...Nocturia 1x...caffeine does worsen sx...EMERITA sx are minimal...She takes daily prophylaxis (Trimethoprim) [facility] Work Phone: [phone]) [phone] History of Present illness Yogi is here today for evaluation of her left knee multiple fractures. She is a 76-year-old female who tripped over a piece of cardboard on 01/13/2012 and landed on her anterior knee. She had pain right away and reported to the emergency department where x-rays revealed the patella and tibial plateau fracture. She is placed into a knee immobilizer made nonweightbearing and sent to her office for further management. She continues have pain on the anterior aspect of the knee however this is improving. She has utilized minimal Aragon. She denies history of blood clots. She has been applying someweight however this has not been too painful for her. She is currently using a walker and wheelchair and does request to disability placard. She rates her pain as an 8/10.[facility] Work Phone: Evaluation noteNo assessment information available [facility] Work Phone: Evaluation note* Diagnosis Encounter for screening mammogram for malignant neoplasm of breast documented in this encounter [facility] Work Phone: History of Present illness NarrativePatient is here for yearly f/u for chronic hx of UTI'S. No recent sx. She is taking Trimethoprim daily. Chronic LUT'S sx are mild and stable. Denies urgency and frequency. Denies dysuria. Denies hematuria. Nocturia x1. No medication for LUT'S. EMERITA sx are minimal.[facility] Work Phone: Reason for referral (narrative)No reason for referral information availableProm[facility] Work Phone: Reason for visit Narrative* Imaging (Routine) - Authorized Specialty Diagnoses / Procedures Referred By Ileana flowers Referred To Contact Radiology Diagnoses Encounter for screening mammogram for malignant neoplasm of breast Procedures BI mammo bilateral screening tomosynthesis Nicolle Pacheco APRN-MANUELITO [address] [address] Phone: tel: fax: Referral ID Status Reason Start Date Expiration Date Visits Requested Visits Authorized [id number] Authorized Perform Procedure 4 08/24/2025 1 1 [facility] Work Phone: Summary Purpose Family History No Family History Records Found Mother Name Dates Details Family history of cardiac di sorder(V17.49, Z82.49) Status:Active Sister Name Dates Details Family history of depression (V17.0, Z81.8) Status:Active Family history of hyperlipid emia(V18.19, Z83.438) Status:Active Family history of hypertensi on(V17.49, Z82.49) Status:Active Unknown Family Member Name Dates Details Family history of cardiac di sorder: Mother(V17.49, Z82.49) Status:Active Family history of depression : Sister(V17.0, Z81.8) Status:Active Family history of hyperlipid emia: Sister(V18.19, Z83.438) Status:Active Family history of hypertensi on: Sister(V17.49, Z82.49) Status:Active Unknown Family Member Name Dates Details Family history of hypertensi on: Sister(V17.49, Z82.49) Status:Active Family history of hyperlipid emia: Sister(V18.19, Z83.438) Status:Active Family history of depression : Sister(V17.0, Z81.8) Status:Active Family history of cardiac di sorder: Mother(V17.49, Z82.49) Status:Active Unknown Family Member Name Dates Details Family history of hypertensi on: Sister(V17.49, Z82.49) Status:Active Family history of hyperlipid emia: Sister(V18.19, Z83.438) Status:Active Family history of depression : Sister(V17.0, Z81.8) Status:Active Family history of cardiac di sorder: Mother(V17.49, Z82.49) Status:Active Unknown Family Member Name Dates Details Family history of cardiac di sorder: Mother(V17.49, Z82.49) Status:Active Family history of depression : Sister(V17.0, Z81.8) Status:Active Family history of hyperlipid emia: Sister(V18.19, Z83.438) Status:Active Family history of hypertensi on: Sister(V17.49, Z82.49) Status:Active Unknown Family Member Name Dates Details Family history of hypertensi on: Sister(V17.49, Z82.49) Status:Active Family history of hyperlipid emia: Sister(V18.19, Z83.438) Status:Active Family history of depression : Sister(V17.0, Z81.8) Status:Active Family history of cardiac di sorder: Mother(V17.49, Z82.49) Status:Active Unknown Family Member Name Dates Details Family history of cardiac di sorder: Mother(V17.49, Z82.49) Status:Active Family history of depression : Sister(V17.0, Z81.8) Status:Active Family history of hyperlipid emia: Sister(V18.19, Z83.438) Status:Active Family history of hypertensi on: Sister(V17.49, Z82.49) Status:Active Unknown Family Member Name Dates Details Family history of cardiac di sorder: Mother(V17.49, Z82.49) Status:Active Family history of depression : Sister(V17.0, Z81.8) Status:Active Family history of hyperlipid emia: Sister(V18.19, Z83.438) Status:Active Family history of hypertensi on: Sister(V17.49, Z82.49) Status:Active Unknown Family Member Name Dates Details Family history of cardiac di sorder: Mother(V17.49, Z82.49) Status:Active Family history of depression : Sister(V17.0, Z81.8) Status:Active Family history of hyperlipid emia: Sister(V18.19, Z83.438) Status:Active Family history of hypertensi on: Sister(V17.49, Z82.49) Status:Active Unknown Family Member Name Dates Details Family history of cardiac di sorder: Mother(V17.49, Z82.49) Status:Active Family history of depression : Sister(V17.0, Z81.8) Status:Active Family history of hyperlipid emia: Sister(V18.19, Z83.438) Status:Active Family history of hypertensi on: Sister(V17.49, Z82.49) Status:Active Advance Directives No Advanced Directives Records FoundDocuments on File Type Date Recorded Patient Green Coffee Blender Expl anation Advance Directives and Living Will Documents on File Type Date Recorded Patient Green Coffee Blender Expl anation Advance Directives and Livin g Will 09/21/2019 8:38 AM Documents on File Type Date Recorded Patient Green Coffee Blender Expl anation Advance Directives and Livin g Will 10/13/2019 8:09 AM Latest Code Status on File Code Status Date Activated Date Inactivated Comments Full Code 10/13/2019 11:45 AM Documents on File Type Date Recorded Patient Green Coffee Blender Expl anation Advance Directives and Livin g Will 10/13/2019 8:09 AM Power of Foam Rubber Curer Documents on File Type Date Recorded Patient Green Coffee Blender Expl anation Advance Directives and Livin g Will 10/13/2019 8:09 AM Power of Foam Rubber Curer Latest Code Status on File Code Status Date Activated Date Inactivated Comments Full Code 10/13/2019 11:45 AM Documents on File Type Date Recorded Patient Green Coffee Blender Expl anation Advance Directives and Living Will History of Present Illness * Tia Churchill, DIRECT CARE SUPERVISOR - 06/28/2019 3:53 PM EDT Carol Grimm 1945 CC: 73 y.o. WF follow up knee pain from ER Chief Complaint Patient presents with Right Knee - Pain . HPI: Knee Pain: Patient complains of right knee pain. The pain began several days ago. She states that she was at home, trying to unpack from a camping trip when she went to step backwards and fell. She landed on the lateral side of her knee. She describes the symptoms as aching, sharp, stabbing and throbbing. She does say the pain is better now. She is just taking Tylenol. Rates the pain about a2-3 at its worst. She has not put any weight on the knee. The ER doctor told her not too because she could have a tibial plateau fracture. She states they did not send her home with an immobilizer. She states it is more swollen than is usually is but that right knee is always a bit bigger than the left because she had a prior surgery on the right knee. She says the swelling is better than what ithad been. She is now able to move her toes but after it happened, she wasn't able too. No Known Allergies Current Outpatient Medications: atorvastatin (LIPITOR) 10 MG tablet, , Disp: , Rfl: latanoprost (XALATAN) 0.005 % ophthalmic solution, , Disp: , Rfl: SYNTHROID 50 mcg tablet, , Disp: , Rfl: trimethoprim (TRIMPEX) 100 mg tablet, , Disp: , Rfl: Past Medical History: Diagnosis Date Disease of thyroid gland High cholesterol Past Surgical History: Procedure Laterality Date KNEE SURGERY Social History Socioeconomic History Marital status: Spouse name: Not on file Number of children: Not on file Years of education: Not on file Highest education level: Not on file Occupational History Not on file Social Needs Financial resource strain: Not on file Food insecurity: Worry: Not on file Inability: Not on file Transportation needs: Medical: Not on file Non-medical: Not on file Tobacco Use Smoking status: Never Smoker Smokeless tobacco: Never Used Substance and Sexual Activity Alcohol use: Not Currently Drug use: Not on file Sexual activity: Not on file Lifestyle Physical activity: Days per week: Not on file Minutes per session: Not on file Stress: Not on file Relationships Social connections: Talks on phone: Not on file Gets together: Not on file Attends episcopal service: Not on file Active member of club or organization: Not on file Attends meetings of clubs or organizations: Not on file Relationship status: Not on file Other Topics Concern Not on file Social History Narrative Not on file ROS: Review of Systems Constitutional: Negative for activity change and fatigue. HENT: Negative for congestion, hearing loss and trouble swallowing. Eyes: Negative for visual disturbance. Respiratory: Negative for chest tightness and shortness of breath. Cardiovascular: Negative for chest pain and palpitations. Gastrointestinal: Negative for abdominal pain, diarrhea, nausea and vomiting. Endocrine: Negative for polydipsia, polyphagia and polyuria. Genitourinary: Negative for decreased urine volume, difficulty urinating and hematuria. Musculoskeletal: Positive for arthralgias, joint swelling and myalgias. Skin: Negative for color change, rash and wound. Allergic/Immunologic: Negative for immunocompromised state. Neurological: Negative for dizziness, weakness, light-headedness and numbness. Hematological: Does not bruise/bleed easily. Psychiatric/Behavioral: Negative for confusion and sleep disturbance. The patient is not nervous/anxious. PE: Physical Exam Constitutional: She is oriented to person, place, and time. She appears well- developed and well-nourished. HENT: Head: Normocephalic. Eyes: Pupils are equal, round, and reactive to light. Neck: Normal range of motion. Neck supple. Cardiovascular: Normal rate and regular rhythm. Pulmonary/Chest: Effort normal and breath sounds normal. Abdominal: Soft. Bowel sounds are normal. Musculoskeletal: Normal range of motion. General: Tenderness and edema present. Right knee: She exhibits swelling. Tenderness found. Lateral joint line tenderness noted. Neurological: She is alert and oriented to person, place, and time. Skin: Skin is warm and dry. Imaging: R knee Reviewed from 06/25/2019 shows a lateral tibial plateau stress fracture. Assessment: The patient can bend and straighten the knee fully with pain that runs down the witt. The exam was limited due to the patient having pain in the right knee. The right knee was edematous in comparisonto the left. Tenderness along the lateral joint line. Slight ecchymosis noted to the lateral side of the knee. Plan: I reviewed the patient films with Dr. Hurt and at this time we are going to place in a hinged knee brace. She is able to weight bear as tolerated while using a walker and wearing the brace. She is concerned because she has a cruise planned at the beginning of August and she doesn't want to be in a wheelchair for it. I explained that this needs time to heal and that I will see her back in 2 weeks and we will re-xray the knee at that time to make sure it is healing appropriately. Because of the injury and the patient's decreased mobility, I suggested to the patient to start trever 81 mg ASA daily. She states that she is already taking one a day and will make sure to keep taking it. I will see her back in 2 weeks for an x-ray. She is to call the office if she has any questions or concerns. Her daughter and were here today with her and all three are in agreement withthe treatment plan. Diagnosis: Problem List Items Addressed This Visit None Follow Up: No follow-ups on file. Tia Churchill CNP documented in this encounter* Cristal Alex MD - 09/24/2019 2:31 PM EST OFFICE CONSULTATION NOTE [facility] [address] [facility] [address] [facility] [id number] Physicians: Sarbjit Singh, DO (Family); Shaun Hurt,* (Referring) Subjective: Carol Grimm is a 73 y.o. female seen in the office today for Pre-op Exam (rt TKR Blu performing 10/13 ) . HPI: The patient is a pleasant 73-year-old female with a past medical history significant for chronic open angle glaucoma, hyperlipidemia, hypothyroidism, and osteoarthritis. She is here today for preoperative clearance for proposed right total knee replacement surgery. denies any anginal type chest discomfort. Her breathing is baseline. She denies any orthopnea, paroxysmal nocturnal dyspnea, syncope, or near syncope. She states she had been on low-dose atorvastatin but she was taken off of this because it was not doing any good. Her EKG today is abnormal and shows left bundle branch block. Assessment & Plan: Preop cardiovascular exam The patient denies any anginal type chest discomfort. Unfortunately, her EKG shows baseline left bundle branch block. There are none for comparison. I have ordered a Lexiscan SPECT to rule out occultischemia. She cannot walk on a treadmill secondary to orthopedic issues. If there is no reversible defect to suggest ischemia or myocardium at risk, she would be an acceptable risk for surgery from my perspective. The risks and benefits of the procedure were described in detail to the patient and she verbalizes an understanding and wishes to proceed. High cholesterol Lipids are followed through primary care. I do not have access to her blood work. Follow Up Ordered: Return if symptoms worsen or fail to improve. Histories: Past Medical History: Diagnosis Date Disease of thyroid gland High cholesterol Past Surgical History: Procedure Laterality Date ARTHROSCOPY KNEE W/TIBIAL PLATEAU PLATING bladder mesh insert CATARACT EXTRACTION W/ INTRAOCULAR LENS IMPLANT Bilateral History reviewed. No pertinent family history. Social History Tobacco Use Smoking status: Never Smoker Smokeless tobacco: Never Used Substance Use Topics Alcohol use: Not Currently Drug use: Never Current Outpatient Medications Medication Sig Dispense Refill aspirin 81 MG EC tablet Take 81 mg by mouth daily . latanoprost (XALATAN) 0.005 % ophthalmic solution Administer 1 drop to the right eye daily . Synthroid 75 mcg tablet Take 75 mcg by mouth once daily . trimethoprim (TRIMPEX) 100 mg tablet Take 100 mg by mouth 2 (two) times a day . No current facility-administered medications for this visit. No Known Allergies Review of Systems Constitution: Negative for diaphoresis, malaise/fatigue, weight gain and weight loss. HENT: Negative for hearing loss, nosebleeds and tinnitus. Eyes: Negative for blurred vision and visual disturbance. Cardiovascular: Negative for chest pain, claudication, cyanosis, dyspnea on exertion, irregular heartbeat, leg swelling, near-syncope, orthopnea, palpitations, paroxysmal nocturnal dyspnea and syncope. Respiratory: Negative for hemoptysis, shortness of breath and snoring. Endocrine: Negative for cold intolerance and heat intolerance. Hematologic/Lymphatic: Does not bruise/bleed easily. Skin: Negative for flushing, poor wound healing and rash. Musculoskeletal: Positive for joint pain. Negative for back pain, muscle weakness and myalgias. Gastrointestinal: Negative for abdominal pain, change in bowel habit, melena, nausea and vomiting. Genitourinary: Negative for decreased libido and hematuria. Neurological: Negative for loss of balance and numbness. Psychiatric/Behavioral: Negative for memory loss. The patient is not nervous/anxious. Overview of Problems Addressed: Problem High Cholesterol Disease of Thyroid Gland Preop Cardiovascular Exam Objective: Physical Exam Constitutional: She is oriented to person, place, and time. She appears well- developed and well-nourished. HENT: Head: Normocephalic. Eyes: Pupils are equal, round, and reactive to light. Conjunctivae and EOM are normal. No scleral icterus. Neck: Normal range of motion. Neck supple. No JVD present. No tracheal deviation present. No thyromegaly present. Cardiovascular: Normal rate, regular rhythm, S1 normal, S2 normal, normal heart sounds and intact distal pulses. Exam reveals no friction rub. No murmur heard. Pulmonary/Chest: Breath sounds normal. No respiratory distress. She has no wheezes. She has no rales. Abdominal: Soft. Bowel sounds are normal. She exhibits no distension and no mass. There is no hepatosplenomegaly. There is no abdominal tenderness. Musculoskeletal: Normal range of motion. General: No edema. Lymphadenopathy: She has no cervical adenopathy. Neurological: She is alert and oriented to person, place, and time. Skin: Skin is warm and dry. Psychiatric: She has a normal mood and affect. Her behavior is normal. Vitals: Vitals: 09/24/19 1409 BP: 113/73 BP Location: Right arm Patient Position: Sitting Pulse: 74 SpO2: 95% Weight: 65.8 kg (145 lb 1.6 oz) Height: 5' 5 Orders Placed This Encounter NM Myocardial Perfusion Multiple SPECT Thank you for allowing me to assist you in the cardiovascular care of this patient. Please don't hesitate to contact me if you have any questions regarding these thoughts. Cristal Alex MD documented in this encounter* Sahra Luz, THERAPEUTIC PROGRAM WORKER - 10/14/2019 12:06 PM EST Physical Therapy PHYSICAL THERAPY TREATMENT NOTE Skilled Therapy Needs After Discharge Anticipate Resolution of Current Assessment Limitations Including: Pain Are Skilled Therapy Services Needed After Discharge: Yes Intensity of Skilled Therapy: 2-3 days per week Anticipated Duration of Skilled Therapy: Duration 10 - 30 days DME Recommendation: Wheeled walker DME Rationale: Patient's condition creates an increased risk of safety hazard without recommended equipment Rehab Potential: Good Outcomes Measures Prior Function - Basic Mobility Raw Score: 24 Points Prior Function - Basic Mobility % Impaired: 0% functionally impaired AM-PAC - Basic Mobility Raw Score: 18 Points AM-PAC - Basic Mobility % Impaired: 40.47% functionally impaired Activity Tolerance Therapy Precautions Weight Bearing Status: WFL General Rehab Precautions: Fall risk Released to nursing: assist x 1 with Balance Bed Mobility Supine to Sit: Modified independence Sit to Supine: Modified [place] Skilled Intervention: Pt completed transfer onto and off of plinth with use of amy UE SC. Transfers Sit to Stand: Modified independence Skilled Intervention: Pt transferred sit to stand and stand to sit with use of amy UE SC. Gait/Locomotion Gait Assistance: Stand by assistance Assistive Device: Wheeled walker Distance: 150 Feet Pattern: Step through, R impaired heel strike, R decreased step length, L decreased step length Stair Management Technique: Two rails, One rail L, Step to pattern, Forwards Stair Management Assistance: Stand by assistance Number of Stairs: 20 Skilled Intervention: Pt demonstrates slow gait pace, with slight decrease in heel strike. Pt instructed on and performed stair navigation using 2 rails with step to gait pattern during ascent and 1 rail with step to gait pattern during descent. Exercise Total Knee: 20 Pt completed Rt LE therapeutic exercise x 20 reps for functional strengthening: LAQ,SAQ, heel slides, quad sets, ankle pumps, and self assisted knee flexion. Performed manual assistance during knee flexion to improve AROM. Pt Rt LE AROM measurement 8-111. Pt requiring cueing to perform exercises correctly. Home Living Type of Home: House Home Layout: Two level, Stairs to enter with rails, Able to live on main level with bedroom/bathroom, Laundry in basement Bathroom Shower/Tub: Walk-in shower Bathroom Toilet: Standard Bathroom Equipment: Shower chair, Hand-held shower Bathroom Accessibility: Accessible via walker Home Equipment: Wheeled Walker, Cane, Wheelchair-manual, Long-handled shoehorn, Trolley Collector(rollator) Prior Level of Function Level of [place]: Independent with ADLs and functional transfers, Independent with homemaking with ambulation Lives With: Spouse Receives Help From: Family ADL Assistance: Independent Vocational: Retired Comments: Patient drives; was indep without device. For complete objective data, detailed plan of care and patient education refer to: PT EVALUATION flow sheet, PT TREATMENT flow sheet, patient Plan of Care, Plan of Care progress note, and Patient Education. This note stands as the current Discharge Summary upon patient discharge from the hospital or completion of Physical Therapy Plan of Care. * Shaun Hurt MD - 10/14/2019 8:41 AM EST Orthopedic Total Knee Progress Note Assessment/Plan: Status Post right Total Knee Arthroplasty: Doing well postoperatively. Discharge today, Return to Clinic: 2 weeks LOS: 0 days Subjective: Post-Operative Day: 1 Status Post right Total Knee Arthroplasty Systemic or Specific Complaints:No Complaints Objective: Vital signs in last 24 hours: Temp: [96.2 F (35.7 C)-98 F (36.7 C)] 98 F (36.7 C) Heart Rate: [49-87] 65 Resp: [14-16] 14 BP: (89-137)/(41-81) 110/70 General: alert, appears stated age and cooperative Wound: Wound clean and dry no evidence of infection. Motion: Extension: Full Extension DVT Exam: No evidence of DVT seen on physical exam. Data Review CBC: Lab Results Component Value Date WBC 4.20 (L) 09/21/2019 RBC 4.30 09/21/2019 HGB 10.9 (L) 10/14/2019 HCT 33.7 (L) 10/14/2019 PLT 269 09/21/2019 * Jojo Hobson RN - 10/13/2019 4:36 PM EST Pt c/o pain to lower abdomen. She soaked through her brief and linens. Changed linens and washed Ptup. Bladder scanned for >877mL. Notified Dr. Hurt. Order to insert hernandez. documented in this encounter* Shaun Hurt MD - 11/01/2019 1:49 PM EST Dictation on: 11/01/2019 1:49 PM by: SHAUN HURT [[id number]] documented in this encounter* Shaun Hurt MD - 11/29/2019 5:20 PM EST Dictation on: 11/29/2019 5:21 PM by: SHAUN HURT [[id number]] documented in this encounter* Shaun Hurt MD - 04/28/2020 5:32 PM EDT She comes in today for 6 month followup of her right knee. She said she is still having some pain and discomfort. Just wanted to make sure everything looked okay on the x-ray and exam because it doesstill give her pain and discomfort. Today, she is awake, alert x3. Ambulates without a cane, without a walker. She is by herself. Right lower extremity neurologically intact, 2+ pulses. Full range ofmotion of the ankle and hip. Right knee has full extension. She has 130 degrees of flexion. No ligamentous instability. No knee effusion. No erythema. No lymphangitis. No cellulitis. X-RAYS Three views of the right knee shows a normal-appearing cemented total knee replacement. No loosening. No malalignment. IMPRESSION Six months status post right total knee replacement. PLAN At this point in time, her exam looks phenomenal. Her range of motion is phenomenal. X-rays are normal. She is going to give this 6 more months. I will see her in September for a year checkup. If at that time, she is still having pain I will consider a CBC, sedimentation rate C-reactive protein and i nterleukin-6. documented in this encounter* Shaun Hurt MD - 09/18/2020 2:03 PM EST comes in today for a followup of her right total knee replacement. , at this point in time, is one year status post a right knee replacement, but if you will recall, this patient had significant trauma to her right knee with a history of a patellar tendon reconstruction and a lateral depressed tibial plateau fracture. We actually went ahead and did, years ago, a patellar tendon reconstruction. We then went ahead and proceeded forward with a total knee replacement after letting her lateral tibial plateau heal. She does still have some chronic pain and discomfort, but at this time she says she can live with it. PHYSICAL EXAMINATION Today, she is awake alert x3. She has full range of motion of her right ankle and hip. Right knee wound is healed. No signs of infection. Extensor mechanism is intact with 5/5 strength. She has full extension. At this time, the patient actually has 130 degrees of right knee flexion with no ligamentous instability. No erythema. No lymphangitis. No cellulitis. She has absolutely no knee effusion. X-RAYS Three views of the right knee shows a normal-appearing cemented right knee replacement. IMPRESSION One year status post right knee replacement. PLAN On physical exam she is doing fantastic. Her wound is benign. Range of motion is fantastic. X-rays normal. She does still have some pain. I think that this is going to be a chronic situation. I do not see any reason to do any type of infection workup. I will see her back in a year. If anything changes she will let me know how. documented in this encounter* Tia Churchill CNP - 07/16/2019 10:49 PM EDT [facility] [address] [facility] [address] [facility] [id number] Chief Complaint Patient presents with Right Knee - Follow-up Carol Grimm returns to the office today for a follow-up appointment of her right tibial plateau fracture. Chief Complaint Patient presents with Right Knee - Follow-up is here today for follow up on her tibial plateau fracture. She is doing very well. She has been wearing the brace and she has been bearing weight as tolerated. Overall her pain is well controlled with ibuprofen or tylenol. She has not been to physical therapy. She is using a wheeled walker for extra support and stability. She is very anxious because she is supposed to go on a cruise in 3 weeks and wants to make sure she can still go. Overall she is about 60% better than what she was fromthe last visit. Ortho Exam She has FROM in the R knee. There is no ecchymosis or swelling to the right knee. She does have slight tenderness upon palpation along the later aspect of the knee and tibial plateau. Imaging: Stable depressed fracture of the lateral tibial plateau. Assessment/Plan: Overall I am please with 's progress. The fracture is stable and healing well. She is going on a cruise in three weeks so I would like her to continue to use the brace when walking or weight bearing. I want her to continue to use her wheeled walker as needed for stability. Herrange of motion is good and pain in under control. She states that she has a wheelchair for the cruise and is also going to bring her walker. We discussed the possibility of a knee replacement after the fracture is completley healed. She states that this is something that she is willing and wantingto do since she has been having knee pain for years. I would like to see her when she returns from her cruise and we will evaluate the need for physical therapy. We will also x-ray the knee again andfurther discuss a total knee replacement. She verbalizes understanding and is in agreement with thetreatment plan. 1. Closed fracture of right tibial plateau, initial encounter . documented in this encounter* Tia Churchill CNP - 08/31/2019 12:40 PM EST [facility] [address] [facility] [address] [facility] [id number] Chief Complaint Patient presents with Right Knee - Follow-up Carol Grimm returns to the office today for follow up on her right tibial plateau fracture. She was first seen in June for the fracture. Overall she is doing fair. She was able to go on a cruise recently which she states went well and she didn't have to utilize the walker or wheelchair. Theproblem that she continues to have is the pain. She denies instability and is only wearing the kneebrace on occasion. She enjoyed walking with friends and wants to try and start it again but states that the pain in the knee won't allow her to walk for long periods of time. She states that the kneeaches and at times will have a sharp pain. She is here today to discuss having the right knee replaced. The patient's past medical history, surgical history, social history, family history, medications and allergies were reviewed with the patient today and are available in the chart for further review. ROS: Review of Systems Constitutional: Negative for activity change and fatigue. HENT: Negative for congestion, hearing loss and trouble swallowing. Eyes: Negative for visual disturbance. Respiratory: Negative for chest tightness and shortness of breath. Cardiovascular: Negative for chest pain and palpitations. Gastrointestinal: Negative for abdominal pain, diarrhea, nausea and vomiting. Endocrine: Negative for polydipsia, polyphagia and polyuria. Genitourinary: Negative for decreased urine volume, difficulty urinating and hematuria. Musculoskeletal: Positive for arthralgias and gait problem. Negative for joint swelling and myalgias. Skin: Negative for color change, rash and wound. Allergic/Immunologic: Negative for immunocompromised state. Neurological: Negative for dizziness, weakness, light-headedness and numbness. Hematological: Does not bruise/bleed easily. Psychiatric/Behavioral: Negative for confusion and sleep disturbance. The patient is not nervous/anxious. PE: Physical Exam Constitutional: She is oriented to person, place, and time. She appears well- developed and well-nourished. HENT: Head: Normocephalic. Eyes: Pupils are equal, round, and reactive to light. Neck: Normal range of motion. Neck supple. Cardiovascular: Normal rate and regular rhythm. Pulmonary/Chest: Effort normal and breath sounds normal. Abdominal: Soft. Bowel sounds are normal. Musculoskeletal: General: Tenderness present. Right knee: She exhibits decreased range of motion and effusion. Tenderness found. Lateral joint line tenderness noted. Neurological: She is alert and oriented to person, place, and time. Skin: Skin is warm and dry. Pain with ROM celine with full extension Imaging: R Knee There is unchanged appearance of mildly depressed lateral tibial plateau fracture of the right knee. Small right knee joint effusion is present. There is diffuse demineralization. Assessment/Plan: After examination and reviewing of the patient x-ray images, we discussed moving forward with a right knee replacement. I did explain to the patient that I did have Dr. Hurt lookat her x-rays and that we are able to proceed with the right knee replacement. Due to the tibial plateau fracture the knee replacement will be cemented per Dr. Hurt. The patient will start physical therapy and will complete a 6-week course of physical therapy before her right knee replacement. At this time the patient verbalized understanding and is in agreement with the treatment plan. documented in this encounter* Nikole Vang LPN - 10/21/2019 10:26 AM EST I spoke w today and she tells me she is doing ok. She had one bad night a few nights ago w increased pain, decreased sleep but she is better. Her therapy is going well w increased ROM. Her swelling is better w ice, she will try to elevate more. She denies any constipation/n. She is taking herASA bid and her Protonix qd. documented in this encounter Assessments Diagnosis Closed fracture of right tibial plateau, initial encounter- Primary Diagnosis Closed fracture of right tibial plateau, initial encounter Diagnosis Closed fracture of right tibial plateau, initial encounter Diagnosis Closed fracture of right tibial plateau, initial encounter Diagnosis Closed fracture of right tibial plateau, initial encounter High cholesterol Pure hypercholesterolemia Disease of thyroid gland Unspecified disorder of thyroid Preop cardiovascular exam Pre-operative cardiovascular examination Abnormal ECG Nonspecific abnormal electrocardiogram (ECG) (EKG) Diagnosis Closed fracture of right tibial plateau, initial encounter Diagnosis Preop cardiovascular exam Pre-operative cardiovascular examination Abnormal ECG Nonspecific abnormal electrocardiogram (ECG) (EKG) Diagnosis Closed fracture of right tibial plateau, initial encounter S/P total knee arthroplasty, right Diagnosis Status post total right knee replacement Diagnosis Status post total right knee replacement Diagnosis Status post total right knee replacement- Primary Diagnosis Closed fracture of right tibial plateau, initial encounter- Primary Diagnosis Closed fracture of right tibial plateau, initial encounter Primary osteoarthritis of left knee Reason for Referral Status Reason Specialty Diagnoses / Procedures Referre d By Contact Referred To Contact Closed Radiology Diagnoses Closed fracture of right tibial plateau, initial encounter Procedures CT Knee Right Without Contrast Shaun Hurt MD [address] [place] [address] Status Reason Specialty Diagnoses / Procedures Re ferred By Contact Referred To Contact Pending Review Radiology Diagnoses Preop cardiovascular exam Abnormal ECG Procedures NM Myocardial Perfusion Multiple SPECT Cristal Alex MD [address] [place] [address] Status Reason Specialty Diagnoses / Procedures Re ferred By Contact Referred To Contact Closed Radiology Diagnoses Preop cardiovascular exam Abnormal ECG Procedures NM Myocardial Perfusion Multiple SPECT Cristal Alex MD [address] [place] [address] Status Reason Specialty Diagnoses / Procedures Referred By Contact Referred To Contact Pending Review Home Health Services Diagnoses S/P total knee arthroplasty, right Shaun Hurt MD [address] [place] [address] Status Reason Specialty Diagnoses / Procedures Referred By Contact Referred To Contact Authorized Patient Preference Physical Therapy Diagnoses Closed fracture of right tibial plateau, initial encounter Primary osteoarthritis of left knee Tia Churchill CNP [address] [place] [address] Instructions Name Dates Details Instructions not documented Discharge Instructions * Instructions* Maddi Celeste RN - 10/14/2019 Total Knee Replacement: What to Expect at Home Your Recovery When you leave the hospital, you should be able to move around with a walker or crutches. But you will need someone to help you at home for the next few weeks or until you have more energy and can move around better. If you need more extensive rehab, you may go to a specialized rehab center for more treatment. You will go home with a bandage and stitches, neva, tissue glue, or tape strips. Change the bandage as your doctor tells you to. If you have stitches or neva, your doctor will remove them 10 to21 days after your surgery. Glue or tape strips will fall off on their own over time. You may stillhave some mild pain, and the area may be swollen for 3 to 6 months after surgery. Your knee will continue to improve for 6 to 12 months. You will probably use a walker for 1 to 3 weeks and then use crutches. When you are ready, you can use a cane. You will probably be able to walkon your own in 4 to 8 weeks. You will need to do months of physical rehabilitation (rehab) after a knee replacement. Rehab will help you strengthen the muscles of the knee and help you regain movement. After you recover, your artificial knee will allow you to do normal daily activities with less pain or no pain at all. You maybe able to hike, dance, ride a bike, and play golf. Talk to your doctor about whether you can do more strenuous activities. Always tell your caregivers that you have an artificial knee. How long it will take to walk on your own, return to normal activities, and go back to work dependson your health and how well your rehabilitation (rehab) program goes. The better you do with your rehab exercises, the quicker you will get your strength and movement back. This care sheet gives you a general idea about how long it will take for you to recover. But each person recovers at a different pace. Follow the steps below to get better as quickly as possible. How can you care for yourself at home? Activity Rest when you feel tired. You may take a nap, but do not stay in bed all day. When you sit, use a chair with arms. You can use the arms to help you stand up. Work with your physical therapist to find the best way to exercise. What you can do as your knee heals will depend on whether your new knee is cemented or uncemented. You may not be able to do certain things for a while if your new knee is uncemented. After your knee has healed enough, you can do more strenuous activities with caution. ? You can golf, but use a golf cart, and do not wear shoes with spikes. ? You can bike on a flat road or on a stationary bike. Avoid biking up hills. ? Your doctor may suggest that you stay away from activities that put stress on your knee. These include tennis or badminton, squash or racquetball, contact sports like football, jumping (such as in basketball), jogging, or running. ? Avoid activities where you might fall. These include horseback riding, skiing, and mountain biking. Do not sit for more than 1 hour at a time. Get up and walk around for a while before you sit again.If you must sit for a long time, prop up your leg with a chair or footstool. This will help you avoid swelling. Ask your doctor when you can drive again. It may take up to 8 weeks after knee replacement surgery before it is safe for you to drive. When you get into a car, sit on the edge of the seat. Then pull in your legs, and turn to face the front. You should be able to do many everyday activities 3 to 6 weeks after your surgery. You will probably need to take 4 to 16 weeks off from work. When you can go back to work depends on the type of workyou do and how you feel. Ask your doctor when it is okay for you to have sex. Do not lift anything heavier than 10 pounds and do not lift weights for 12 weeks. Diet By the time you leave the hospital, you should be eating your normal diet. If your stomach is upset, try bland, low-fat foods like plain rice, broiled chicken, toast, and yogurt. Your doctor may suggest that you take iron and vitamin supplements. Drink plenty of fluids (unless your doctor tells you not to). Eat healthy foods, and watch your portion sizes. Try to stay at your ideal weight. Too much weight puts more stress on your new knee. You may notice that your bowel movements are not regular right after your surgery. This is common. Try to avoid constipation and straining with bowel movements. You may want to take a fiber supplement every day. If you have not had a bowel movement after a couple of days, ask your doctor about taking a mild laxative. Medicines Your doctor will tell you if and when you can restart your medicines. He or she will also give you instructions about taking any new medicines. If you take aspirin or some other blood thinner, ask your doctor if and when to start taking it again. Make sure that you understand exactly what your doctor wants you to do. Your doctor may give you a blood-thinning medicine to prevent blood clots. If you take a blood thinner, be sure you get instructions about how to take your medicine safely. Blood thinners can cause serious bleeding problems. This medicine could be in pill form or as a shot (injection). If a shot isnecessary, your doctor will tell you how to do this. Be safe with medicines. Take pain medicines exactly as directed. ? If the doctor gave you a prescription medicine for pain, take it as prescribed. ? If you are not taking a prescription pain medicine, ask your doctor if you can take an [id number] medicine. ? Plan to take your pain medicine 30 minutes before exercises. It is easier to prevent pain before it starts than to stop it once it has started. If you think your pain medicine is making you sick to your stomach: ? Take your medicine after meals (unless your doctor has told you not to). ? Ask your doctor for a different pain medicine. If your doctor prescribed antibiotics, take them as directed. Do not stop taking them just because you feel better. You need to take the full course of antibiotics. Incision care If your doctor told you how to care for your cut (incision), follow your doctor's instructions. Youwill have a dressing over the cut. A dressing helps the incision heal and protects it. Your doctor will tell you how to take care of this. If you did not get instructions, follow this general advice: ? If you have strips of tape on the cut the doctor made, leave the tape on for a week or until it falls off. ? If you have stitches or neva, your doctor will tell you when to come back to have them removed. ? If you have skin adhesive on the cut, leave it on until it falls off. Skin adhesive is also called glue or liquid stitches. ? Change the bandage every day. ? Wash the area daily with warm water, and pat it dry. Don't use hydrogen peroxide or alcohol. Theycan slow healing. ? You may cover the area with a gauze bandage if it oozes fluid or rubs against clothing. ? You may shower 24 to 48 hours after surgery. Pat the incision dry. Don't swim or take a bath for the first 2 weeks, or until your doctor tells you it is okay. Exercise Your rehab program will give you a number of exercises to do to help you get back your knee's rangeof motion and strength. Always do them as your therapist tells you. Ice and elevation For pain and swelling, put ice or a cold pack on the area for 10 to 20 minutes at a time. Put a thin cloth between the ice and your skin. Other instructions Continue to wear your support stockings as your doctor says. These help to prevent blood clots. Thelength of time that you will have to wear them depends on your activity level and the amount of swelling. You have metal pieces in your knee. These may set off some airport metal detectors. Carry a medicalalert card that says you have an artificial joint, just in case. Follow-up care is a wiggins part of your treatment and safety. Be sure to make and go to all appointments, and call your doctor if you are having problems. It's also a good idea to know your test resultsand keep a list of the medicines you take. When should you call for help? Call 911 anytime you think you may need emergency care. For example, call if: You passed out (lost consciousness). You have severe trouble breathing. You have sudden chest pain and shortness of breath, or you cough up blood. Call your doctor now or seek immediate medical care if: You have signs of infection, such as: ? Increased pain, swelling, warmth, or redness. ? Red streaks leading from the incision. ? Pus draining from the incision. ? A fever. You have signs of a blood clot, such as: ? Pain in your calf, back of the knee, thigh, or groin. ? Redness and swelling in your leg or groin. Your incision comes open and begins to bleed, or the bleeding increases. You have pain that does not get better after you take pain medicine. Watch closely for changes in your health, and be sure to contact your doctor if: You do not have a bowel movement after taking a laxative. Where can you learn more? Log into your personal health record on https://[employer] and enter T054 in the Education box to learn more about Total Knee Replacement: What to Expect at Home. Current as of: March 31, 2019 Content Version: 12.3 6472-8830 [employer] Care instructions adapted under license by your healthcare professional. If you have questions about a medical condition or this instruction, always ask your healthcare professional. [employer] disclaims any warranty or liability for your use of this information. documented in this encounter Chief Complaint Yearly F/UYearly F/UHX OF UTI'SPT HERE FOR LEFT TIBIAL PLATEAU/PATELLA FX. HERE WITH DAUGHTER. STATES TRIPPED OVER A PIECE OF CARDBOARD AND LANDED ON KNEE 01/12/22. PAIN AND SWELLING IMMEDIATELY AFTERWARD. FEELS PAIN HAS SLIGHTLY DEC REASED. WEARING KNEE IMMOBILIZER. XRAYS DONE. REFERRED BY ED.Non-operative follow-up as she is 2 weeks status post fractures of the left patella and tibial plateau of the knee sustained on 01/12/2022. XR series of the left knee performed today. She denies any worsening pain at this time. She has been compliant with wearing her knee immobilizer, however she believes she has bear more weight on the knee with her walker at home secondary to having difficulty with using a wheelchair in the house and having to take care of her . She does mention the kneebecomes more sore and aching pain after being on it with her walker during the day.Non-operative follow-up) as she is 6 weeks status post fractures of the patella and tibial plateau of the left knee sustained on 01/12/2022. XR series of the left knee performed today. She denies any significant pain while immobilized. She removes her knee immobilizer for hygiene.Non-operative follow- up) as she is 10 weeks status post closed fractures of the patella and tibial p lateau of the left knee on 01/12/2022. XR series of the left knee performed today. She reports she isimproving post-fractures. She did have an episode of worse pain and mild swelling after doing to much activity out of her brace and without the walker. She has since improved and has minimal complaints. She continues the therapy, however she may be released soon.Yearly Chief Complaint and Reason for Visit Chief Complaint Admit Date Urinary tract infection January 22, 2025 10:06am FASTING February 01, 2025 7:0 5am Reason for Visit Admit Date Urinary tract infection January 22, 2025 10:06am Chief Complaint Admit Date Urinary tract infection January 22, 2025 10:06am FASTING February 01, 2025 7:0 5am RIGHT KNEE AND BACK May 02, 2025 10:1 3am Additional Source Comments INFORMATION SOURCE (unrecogn ized section and content) DATE CREATED AUTHOR 06/26/2019 [facility] DATE CREATED AUTHOR AUTHOR'S ORGANIZ ATION 07/15/2019 [facility] DATE CREATED AUTHOR AUTHOR'S ORGANIZ ATION 10/28/2019 [facility] DATE CREATED AUTHOR AUTHOR'S ORGANIZ ATION 10/29/2019 [facility] DATE CREATED AUTHOR AUTHOR'S ORGANIZ ATION 09/22/2020 [facility] DATE CREATED AUTHOR AUTHOR'S ORGANIZ ATION 03/31/2022 [facility] DATE CREATED AUTHOR AUTHOR'S ORGANIZ ATION 11/28/2022 [facility] DATE CREATED AUTHOR AUTHOR'S ORGANIZ ATION 11/28/2022 [facility] DATE CREATED AUTHOR AUTHOR'S ORGANIZ ATION 09/18/2024 [facility] DATE CREATED AUTHOR AUTHOR'S ORGANIZ ATION 05/16/2025 [facility] Reason for Visit (unrecogniz ed section and content) Reason Comments Pain Status Reason Specialty Diagnoses / Procedures Referre d By Contact Referred To Contact Closed Radiology Diagnoses Closed fracture of right tibial plateau, initial encounter Procedures CT Knee Right Without Contrast Shaun Hurt MD [address] [place], [place] [id number] Reason Comments Pre-op Exam rt TKR Blu gomez 10/13 Status Reason Specialty Diagnoses / Procedures Referred By Contact Referred To Contact Closed Specialty Services Required/Patient 's Best Interest Cardiology Diagnoses Closed fracture of right tibial plateau, initial encounter Shaun Hurt MD [address] [place], [place] [id number] Angel Israel MD [address] [place], [place] [id number] Status Reason Specialty Diagnoses / Procedures Re ferred By Contact Referred To Contact Closed Radiology Diagnoses Preop cardiovascular exam Abnormal ECG Procedures NM Myocardial Perfusion Multiple SPECT Cristal Alex MD [address] [place] [address] Status Reason Specialty Diagnoses / Procedures Referre d By Contact Referred To Contact Diagnoses Closed fracture of right tibial plateau, initial encounter Closed fracture of right tibial plateau, initial encounter [S82.141A] Procedures IN TOTAL KNEE ARTHROPLASTY Right total knee replacement [64847] Shaun Hurt MD [address] [place] [address] Status Reason Specialty Diagnoses / Procedures Referre d By Contact Referred To Contact Reason Comments Knee Pain Status Reason Specialty Diagnoses / Procedures Referre d By Contact Referred To Contact Reason Comments Follow-up Suture / Staple Removal Reason Comments Follow-up Reason Comments Pain Follow-up Reason Comments Follow-up Assessment & Plan Note - Cristal Alex MD - 09/24/2019 2:33 PM ESTAssessment & Plan Note - Cristal Alex MD - 09/24/2019 2:33 PM ESTPlan of Care - Sil Gutierrez, OT - 10/14/2019 10:15 AM EST Miscellaneous Notes (unrecog nized section and content) Associated Problem(s): High cholesterol Lipids are followed through primary care. I do not have access to her blood work. Associated Problem(s): Preop cardiovascular exam The patient denies any anginal type chest discomfort. Unfortunately, her EKG shows baseline left bundle branch block. There are none for comparison. I have ordered a Lexiscan SPECT to rule out occult ischemia. She cannot walk on a treadmill secondary to orthopedic issues. If there is no reversible defect to suggest ischemia or myocardium at risk, she would be an acceptable risk for surgery from my perspective. The risks and benefits of the procedure were described in detail to the patient and she verbalizes an understanding and wishes to proceed. documented in this encounter Occupational Therapy Plan of Care Certification Note Coded Admission Diagnosis Closed fracture of right tibial plateau, initial encounter [S82.141A] OT Functional Diagnosis: Z73.6 Disability affecting daily living OT Goals Multidisciplinary Problems (Active) Problem: Impaired Neurologic Function Dates: Start: 10/14/19 Description: Disciplines: OT Goal: OT- static standing balance Dates: Start: 10/14/19 Expected End: 10/21/19 Description: OT - Patient will complete static standing balance activity with modified independence 810 minutes in preparation for ADL's. Disciplines: OT Intervention: Education, ADL/IADL retraining Frequency: PRN Dates: Start: 10/14/19 Description: Intervention: Education, compensatory technique training Frequency: PRN Dates: Start: 10/14/19 Description: Problem: Mobility - Impaired Dates: Start: 10/14/19 Description: Disciplines: OT Goal: OT- bed mobility Dates: Start: 10/14/19 Expected End: 10/21/19 Description: OT - Patient will complete bed mobility with independence with HOB and rails in the down position in preparation of ADL's. Disciplines: OT Goal: OT- toilet transfer Dates: Start: 10/14/19 Expected End: 10/21/19 Description: OT - Patient will complete toilet transfer with modified independence in preparation for ADL's. Disciplines: OT Intervention: Education, ADL/IADL retraining Frequency: PRN Dates: Start: 10/14/19 Description: Intervention: Education, functional mobility training Frequency: PRN Dates: Start: 10/14/19 Description: Problem: Self-care Deficit Dates: Start: 10/14/19 Description: Disciplines: OT Goal: OT- LB dressing Dates: Start: 10/14/19 Expected End: 10/21/19 Description: OT - Patient will complete LB dressing with modified independence to improve self care function. Disciplines: OT Goal: OT- toileting Dates: Start: 10/14/19 Expected End: 10/21/19 Description: OT - Patient will complete toileting with modified independence to improve self care function. Disciplines: OT Goal: OT- home management Dates: Start: 10/14/19 Expected End: 10/21/19 Description: OT - Patient will complete home management simulation with modified independence to improve self care function. Disciplines: OT Intervention: Education, adaptive equipment training Frequency: PRN Dates: Start: 10/14/19 Description: REMINDER(s): Provide instruction on adaptive equipment. Intervention: Education, ADL/IADL retraining Frequency: PRN Dates: Start: 10/14/19 Description: Intervention: Education, compensatory technique training Frequency: PRN Dates: Start: 10/14/19 Description: Frequency of Treatment (times per week): 7x/wk This Occupational Therapy Plan of Care will be carried out until: 1.) The OT plan has been resolved or 2.) The patient is discharged from the acute care hospital POC reviewed and updated. Treatment and care continues. Physical Therapy Plan of Care Certification Note Coded Admission Diagnosis Closed fracture of right tibial plateau, initial encounter [S82.141A] PT Functional Diagnosis: R26.2 Difficulty in walking, not elsewhere classified PT Goals Multidisciplinary Problems (Active) Problem: Impaired Strength Dates: Start: 10/13/19 Description: Disciplines: PT Goal: PT- strengthening Dates: Start: 10/13/19 Expected End: 10/20/19 Description: Pt will independently perform total knee replacement protocol HEP. Disciplines: PT Intervention: Education, Therapeutic exercise Frequency: PRN Dates: Start: 10/13/19 Description: Problem: Mobility - Impaired Dates: Start: 10/13/19 Description: Disciplines: PT Goal: PT- bed mobility Dates: Start: 10/13/19 Expected End: 10/20/19 Description: PT - Patient will perform bed mobility with independence to improve functional mobility and safety. Disciplines: PT Goal: PT- sit to stand transfer Dates: Start: 10/13/19 Expected End: 10/20/19 Description: PT - Patient will perform sit to/from stand transfer with modified independence to improve functional mobility and safety. Disciplines: PT Goal: PT- stand-pivot transfer Dates: Start: 10/13/19 Expected End: 10/20/19 Description: PT - Patient will perform stand-pivot transfer with modified independence to improve functional mobility and safety. Disciplines: PT Goal: PT- car transfer Dates: Start: 10/13/19 Expected End: 10/20/19 Description: PT - Patient will perform car transfer with modified independence to improve functional mobility and safety. Disciplines: PT Goal: PT- ambulation Dates: Start: 10/13/19 Expected End: 10/20/19 Description: PT - Patient will ambulate 200 feet with device with modified independence to improve functional mobility and safety. Disciplines: PT Goal: PT- stair climbing Dates: Start: 10/13/19 Expected End: 10/20/19 Description: PT - Patient will ascend and descend 5 stairs with non-reciprocal technique with 2 rails with modified independence to improve functional mobility and safety. Disciplines: PT Intervention: Education, Assistive device training Frequency: PRN Dates: Start: 10/13/19 Description: Intervention: Education, Bed mobility training Frequency: PRN Dates: Start: 10/13/19 Description: Intervention: Education, Gait training Frequency: PRN Dates: Start: 10/13/19 Description: Intervention: Education, stair training Frequency: PRN Dates: Start: 10/13/19 Description: Intervention: Education, Transfer training Frequency: PRN Dates: Start: 10/13/19 Description: Intervention: Education, Precautions Frequency: PRN Dates: Start: 10/13/19 Description: Frequency of Treatment (times per week): 7 This physical Therapy Plan of Care will be carried out until: 1.) The PT plan has been resolved or 2.) The patient is discharged from the acute care hospital Plan of care initiated. PREOPERATIVE DIAGNOSES 1.Right knee degenerative arthrosis. 2.Osteoporosis. 3.Status post patellar tendon reconstruction, right knee. 4.Status post healed lateral depressed tibial plateau fracture, right knee. POSTOPERATIVE DIAGNOSES 1.Right knee degenerative arthrosis. 2.Osteoporosis. 3.Status post patellar tendon reconstruction, right knee. 4.Status post healed lateral depressed tibial plateau fracture, right knee. PROCEDURE PERFORMED Robotic assisted right total knee replacement. ANESTHESIA Spinal. COMPLICATIONS No intraoperative complications. SPECIMENS Bone. ESTIMATED BLOOD LOSS 1 cc. TOURNIQUET TIME 47 minutes. HISTORY Carol Grimm is a 73-year-old patient with significant osteoporosis that years ago I did a patellar tendon reconstruction. Unfortunately, she had a recent injury to her right knee, was found to have a lateral depressed tibial plateau fracture with her severe osteoporosis and previous surgery. We allowed the fracture to heal and proceed forward with 1 surgery which would be a total knee replacement. She was explained all the risks complications of surgery including, but not limited to the risk of infection, bleeding, neurologic or vascular injury, possibility of deep venous thrombosis, pulmonary embolism, myocardial infarction, stroke, or even with surgery. Explained the possibilities of continued pain, stiffness, loss of range of motion, as well as the need for future surgery. Given all the options of anesthetic per the anesthesia team, I elected for spinal anesthetic. INDICATIONS Patient was met in the preoperative holding area. The right knee was confirmed to be the appropriate site and marked by myself. We also talked to her about the risks and complication of patellar tendon disruption with a previous patellar tendon reconstruction. She understood that and at this time, understood in the future there could be further rupturing of her patella tendon, extensor mechanism allograft and complications. She understood that and consented for surgery. DESCRIPTION OF PROCEDURE Patient was met in the preoperative holding area where the right knee was confirmed to be the appropriate site and marked by myself. Patient was taken to the operative suite, given preoperative Kefzol per protocol, as well as a spinal anesthetic. Right leg was placed in proximal thigh tourniquet. Right leg was then sterilely prepped and draped using ChloraPrep solution as well as InteguSeal. After sterilization of the right leg. We did our final time-out to confirm that the right leg was in fact the appropriate site that had been marked by myself. At this time, we then went ahead and proceeded forward with elevation of the right leg tourniquet. We went ahead and made our incision through the area of the previous patellar tendon reconstruction incision which was an anterior straight incision. Her skin was very thin, but we were able to develop our planes and at this time proceeded forward with our medial arthrotomy. We then went ahead and proceeded forward with the suprapatellar synovectomy, patella fat pad was debulked, and patella was cut. At this time, we then placed our distal femoral checkpoint, proximal tibial checkpoint, placed our distal femoral array and our proximal tibial array. We then did robotic-assisted mapping of the distal femur and the proximal tibia in the usual standard fashion. After this was completed, we then went ahead and proceeded forward with flexion-extension gap balancing. After the flexion-extension gaps were balanced, we then went ahead and proceeded forward with robotic-assisted cuts of the distal femur and the proximal tibia in the usual and standard fashion. We then went ahead and proceeded forward with removing medial and lateral redundant menisci, stripped posterior femoral capsule, posterior femoral osteophytes, and sized the proximal tibia to be a size 4 tibial base plate. We then went ahead and did sequential reduction. We settled on an 11 mm cruciate- retaining tibial insert, which gave us full extension full flexion with excellent varus and valgus with good patellar tracking using a size A32 patella. After all components were selected while my assistant oceanographer mixed cement, I placed injections of local anesthetic around the distal femur and the proximal tibia. I then went ahead and proceeded forward with doing antibiotic-impregnated irrigation. After the irrigation was completed and our cement was the appropriate consistency, we placed our size 4 tibial base plate, 11 mm cruciate-retaining tibial insert, 4 right femoral component, and A32 patella knee was ranged throughout a range of motion and secondary to the previous surgery of her patella [place], we did go ahead and proceed forward with a lateral release, which gave us better patellar tracking. After the lateral release, we then did final antibiotic irrigation, sprinkled 1 g of vancomycin powder throughout the contact surface area of the right knee. Medial arthrotomy was closed using #2 Vicryl. Final series of local was injected subcutaneously. 2-0 Vicryl skin neva used on skin. Exofin was placed on the wound as well as a Mepilex dressing. Patient was then taken to PACU without intraoperative complication. D 10/13/2019 11:46 [id number] 10/13/2019 12:11 MCB/MODL Brief Post Operative Note Patient Name: Carol Grimm : 1945 (73 y.o.) Date of Service: 10/13/2019 CSN: [id number] Procedure(s): Right Total Knee Replacement Robotic cemented Pre-Operative Diagnoses: * Closed fracture of right tibial plateau, initial encounter [S82.141A] Post-Operative Diagnoses: * Same as Pre-Op Diagnosis * Closed fracture of right tibial plateau, initial encounter [S82.141A] Surgeon(s) and Role: * Shaun Hurt MD - Primary Anesthesiologist: Sarbjit Clarke MD MANPOWER DEVELOPMENT SPECIALIST: Gertrude Sandoval CRNA Flap Curer: Ros Flores RN Scrub Person Preceptor: Nitza Chino LPN Scrub Person Orientee: Usha Rose RN Scrub Person Assist: Tayler Clifton RN Operative findings: djd Intra and immediate post-operative complications: none Type of anesthesia used: Spinal Estimated blood loss: 1 mL Estimated urine output: Refer to surgical log Specimen(s): ID Type Source Tests Collected by Time Destination A : Bone and Soft Tissue Bone Knee, Right TISSUE EXAM Shaun Hurt MD 10/13/2019 0933 Implant(s): Implant Name Type Inv. Item Serial No. Histology Technician Lot No. LRB No. Used Action CEMENT BONE RADIOPAQUE SIMPLEX P SINGLE DOSE - [id number] Cement CEMENT BONE RADIOPAQUE SIMPLEX P SINGLE DOSE [employer]ETH[employer]IE OR [id number] Right 1 Implanted PATELLA 32MM ASYMMETRIC X3 TRIATHLON [id number] - [id number] PATELLA 32MM ASYMMETRIC X3 TRIATHLON [id number] [employer]ETHANIE OR [id number] Right 1 Implanted BASEPLATE SZ4 PRIMARY TIB TRIATHLON - [id number] BASEPLATE SZ4 PRIMARY TIB TRIATHLON [employer]ETH[employer]IE OR [id number] Right 1 Implanted INSERT SZ4-11 TIBIAL CR X3 TRIATHLON - [id number] INSERT SZ4-11 TIBIAL CR X3 TRIATHLON [employer]ETH[employer]IE OR [id number] Right 1 Implanted COMPONENT 4 FEMORAL CR RT CEMENTED TRIATHLON - [id number] COMPONENT 4 FEMORAL CR RT CEMENTED TRIATHLON BETHANIE OR [id number] Right 1 Implanted Drain(s): * No LDAs found * Wound(s): Wound 10/13/19 Surgical Wound Knee Right (Active) Shaun Hurt MD 10/13/2019 11:41 AM documented in this encounter Celina Cuellar RN - 10/07/2019 9:00 AM EST Nursing Notes (unrecognized section and content) Baseline ECG- Sinus bradycardia, LBBB. Tolerated Lexiscan well. Appropriate HR and BP response. No chest pain. documented in this encounter Shaun Hurt MD - 10/13/2019 9:26 AM Shaun Moscoso MD - 10/11/2019 5:03 PM EST H&P Notes (unrecognized sect ion and content) INTERVAL HISTORY AND PHYSICAL Patient Name: Carol Grimm Admit Date: MR #: [id number] : 1945 The H&P has been reviewed and the patient has been examined. I concur with the findings of the H&P. There are no significant changes. It is appropriate to proceed with the planned procedure. 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 If you will recall, this patient had a patellar tendon rupture years ago and had a patellar tendon reconstruction. The patient had severe patellofemoral arthrosis that was preempting her lateral tibial plateau fracture. She suffers with osteoporosis and at this point in time, patient says she is looking forward to the knee. She actually was going to do a knee replacement before she had the lateral tibial plateau fracture. She says the popping, cracking, swelling, and pain are miserable. She just cannot take it anymore. The patient said this originally started when she was unpacking from a camping trip back in June. PAST MEDICAL HISTORY Hypothyroidism, high cholesterol, osteoporosis. PAST SURGICAL HISTORY She has had knee arthroscopy. She has had a bladder mass. She has had cataracts. She has had patellar tendon reconstruction right knee. SOCIAL HISTORY She does not smoke, does not drink. MEDICATIONS She is on baby aspirin, Xalatan eyedrops, Synthroid, Trimpex. ALLERGIES None. REVIEW OF SYSTEMS Joint pain, arthralgias, knee pain. IMAGING X-ray examination reveals severe patellofemoral degenerative arthrosis. Postsurgical changes noted from previous patellar tendon reconstruction. Lateral depressed tibial plateau fracture is healed. There are degenerative changes in the lateral and patellofemoral compartment. PHYSICAL EXAMINATION Chest: Clear. Heart: Regular rate and rhythm. Abdomen: Benign. Neck: No carotid bruits are noted. Right Lower Extremity: Neurologically intact. 2+ pulses. Full range of motion of the ankle and hip. Right knee has an anterior midline incision that is healed from previous surgery. 5 degrees short of full extension, 110 degrees of flexion. Severe patellofemoral crepitus. Tenderness medial and lateral joint line. No gross ligamentous instability. IMPRESSION 1.Osteoporosis. 2.History of patellar tendon reconstruction. 3.Posttraumatic patellar degenerative arthrosis. 4.Posttraumatic lateral compartment degenerative arthrosis. PLAN We are going to proceed forward with right total knee replacement. All risks and complications were discussed. I have discussed all the treatment options with the patient. The patient was a part of the entire decision-making process. All risks and complications were discussed. I also reviewed her narcotics check. She has no listed narcotics. documented in this encounter Sil Gutierrez, OT - 10/14/2019 10:11 AM Monique Díaz PT - 10/13/2019 6:09 PM Nena Atkinson LISW - 10/13/2019 4:31 PM EST Consult Notes (unrecognized section and content) Occupational Therapy OCCUPATIONAL THERAPY EVALUATION NOTE Sx: R TKR for closed fx of R tibial plateau Skilled Therapy Needs After Discharge Anticipate Resolution of Current Assessment Limitations Including: Pain Are Skilled Therapy Services Needed After Discharge: No Rehab Potential: Excellent Outcomes Measures Prior Function Daily Activity: Raw Score: 24 Prior Function Daily Activity % Impaired: 0% functionally impaired AM-PAC Daily Activity: Raw Score: 19 AM-PAC Daily Activity % Impaired: 42.80% functionally impaired Occupational Therapy Assessment The patient presents with musculoskeletal impairment(s) in right lower extremity which create performance deficits including balance, activity tolerance and pain, sequencing, insight and safety, and knowledge deficit. These performance impairments limit participation in LE dressing, bathing, toileting, home management and functional mobility in the chosen occupational roles of spouse, family member and community member. The patient's co morbidities do not affect patient performance in the above activities and roles. 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 During the assessment, minimal to moderate modification of task was required and limited treatment options were identified in the plan of care. This consultation required brief review of the medical and therapy history. Activity Tolerance Activity Tolerance: Tolerates 10 - 20 min activity with multiple rests Therapy Precautions Weight Bearing Status: WFL General Rehab Precautions: Fall risk Cognition Overall Cognitive Status: Within Functional Limits Arousal/Alertness: Appropriate responses to stimuli Orientation Level: Oriented X4 Executive functioning: WFL Safety Judgment: Good awareness of safety precautions Problem Solving: Able to problem solve independently Attention: Attends to distracted environment Hearing Status: [facility] Social Interaction: [facility] UE Assessment B UE AROM WFL with gross strength of 5/5 throughout ADL/IADL Feeding: Modified independence Grooming : Supervision LE Dressing: Stand by assistance Toileting : Supervision Bed Mobility Supine to Sit: Stand by assistance Sit to Supine: Stand by assistance Functional Transfers Sit to Stand: Supervision Bed to Chair Transfers: Supervision Toilet Transfers: Supervision Home Living Type of Home: House Home Layout: Two level, Stairs to enter with rails, Able to live on main level with bedroom/bathroom, Laundry in basement Bathroom Shower/Tub: Walk-in shower Bathroom Toilet: Standard Bathroom Equipment: Shower chair, Hand-held shower Bathroom Accessibility: Accessible via walker Home Equipment: Wheeled Walker, Cane, Wheelchair-manual, Long-handled shoehorn, Trolley Collector(rollator) Prior Level of Function Level of [place]: Independent with ADLs and functional transfers, Independent with homemaking with ambulation Lives With: Spouse Receives Help From: Family ADL Assistance: Independent Vocational: Retired Comments: Patient drives; was indep without device. Past Medical History: Diagnosis Date Disease of thyroid gland High cholesterol Past Surgical History: Procedure Laterality Date ARTHROSCOPY KNEE W/TIBIAL PLATEAU PLATING bladder mesh insert CATARACT EXTRACTION W/ INTRAOCULAR LENS IMPLANT Bilateral OCCUPATIONAL THERAPY TREATMENT NOTE Total Treatment Time (Total Session Time): 21 Minutes Timed Code Treatment Minutes: 9 Minutes Cognitive Skills Development Skilled Intervention: Followed all commands. Self-Care / Home Management ADL/IADL Skilled Intervention: VC's for sequencing with LB dressing for ease. Supervision to monitor for safety with toileting; completed without difficulty.No AE/DME recommended at this time. Therapeutic Activities Bed Mobility Skilled Intervention: VC's for ease with sit to supine; prefers to use assist of her UE's to lift RLE onto bed surface. Functional Transfers Skilled Intervention: Supervision to monitor for safety; VC's for walker safety. Stood at sink ~4 minutes for grooming tasks with good static standing without UE support. For complete objective data, detailed plan of care and patient education refer to: OT EVALUATION flow sheet, OT TREATMENT flow sheet, patient Plan of Care, Plan of Care progress note, and Patient Education. This note stands as the current Discharge Summary upon patient discharge from the hospital or completion of Occupational Therapy Plan of Care. Physical Therapy PHYSICAL THERAPY EVALUATION NOTE Skilled Therapy Needs After Discharge Anticipate Resolution of Current Assessment Limitations Including: Pain Are Skilled Therapy Services Needed After Discharge: Yes Intensity of Skilled Therapy: 2-3 days per week Anticipated Duration of Skilled Therapy: Duration 10 - 30 days DME Recommendation: Wheeled walker DME Rationale: Patient's condition creates an increased risk of safety hazard without recommended equipment Rehab Potential: Good Outcomes Measures Prior Function - Basic Mobility Raw Score: 24 Points Prior Function - Basic Mobility % Impaired: 0% functionally impaired AM-PAC - Basic Mobility Raw Score: 18 Points AM-PAC - Basic Mobility % Impaired: 40.47% functionally impaired Physical Therapy Assessment History: Dx: R TKA 10/13/19, WBAT R LE, h/o R tibial plateau fx The following factors influence the patient's participation in the PT plan of care: Personal factors: none Environmental factors: multi-level home, bedroom/bathroom on 2nd floor and steps to enter home The following co-morbidities (from this admission or prior) influence the patient's participation in this plan of care: hypothyroidism, high cholesterol, osteoporosis Number of History elements affecting this patient's PT plan of care: 1-2 Examination of Body Systems: The patient presents with impairments of strength, ROM, pain, functional endurance. These impairments result in limitations of gait, functional transfers, stair-climbing, safety and activity tolerance. These impairments result in restrictions of household mobility, community mobility and leisure activities. Number of Body Systems elements affecting this patient's PT plan of care: 1-2 Clinical Presentation: The patient's clinical presentation for this PT evaluation is evolving as evidenced by current PT documentation. Activity Tolerance Activity Tolerance: Tolerates 10 - 20 min activity with multiple rests Therapy Precautions Weight Bearing Status: WFL General Rehab Precautions: Fall risk(Assist x1 with 2WW) Balance Sitting Balance - Static: Supports self independantly with both upper extremities Standing Balance - Static: Supports self with more than 50% effort using upper extremity, requires therapist assisstance Bed Mobility Supine to Sit: Stand by assistance Transfers Sit to Stand: Contact guard Hand Tapper: Wheeled walker Skilled Intervention: Vc for hand placement with good carryover of instruction Gait/Locomotion Gait Assistance: Contact guard Assistive Device: Wheeled walker Distance: 150 Feet Pattern: Step through, R impaired heel strike, R decreased step length, L decreased step length Skilled Intervention: Pt ambulated with decreased gait speed and bilat step length, with impaired R heel strike at initial contact. Pt demonstrating good AD management during turns. Pt extensively educated on precautions, discharge planning, and mobility through verbal instruction and demonstration. Pt demonstrated understanding of education and billed 1 unit gait training for education on AD management and safety in ambulation. Home Living Type of Home: House Home Layout: Two level, Able to live on main level with bedroom/bathroom, Stairs to enter with rails(5 HARSHAD with 2 HR, bed/bath 1st, bed 2nd) Home Equipment: Wheeled Walker, Cane, Wheelchair-manual(Rollator) Prior Level of Function Level of [place]: Independent with ADLs and functional transfers, Independent with homemaking with ambulation Lives With: Spouse Receives Help From: Family Comments: Ind at PLOF with no AD Past Medical History: Diagnosis Date Disease of thyroid gland High cholesterol Past Surgical History: Procedure Laterality Date ARTHROSCOPY KNEE W/TIBIAL PLATEAU PLATING bladder mesh insert CATARACT EXTRACTION W/ INTRAOCULAR LENS IMPLANT Bilateral For complete objective data, detailed plan of care and patient education refer to: PT EVALUATION flow sheet, PT TREATMENT flow sheet, patient Plan of Care, Plan of Care progress note, and Patient Education. This note stands as the current Discharge Summary upon patient discharge from the hospital or completion of Physical Therapy Plan of Care. Associated Order(s): IP CONSULT TO CARE MANAGEMENT COMPLEX DISCHARGE Date: 10/13/2019 Time: 4:31 PM Patient Name: Carol Grimm Date of : 1945 Sex: Female The patient participated in joint camp prior to her scheduled surgery with Dr. Hurt. She lives at home with her . They live in a 2 story home with 5 steps and bilateral handrails to enter. The bedroom is normally on the second floor, but she will be staying on the first floor in a different bedroom. There is also a bathroom on that floor. It has a walk-in shower without grab bars or a seat. The commode is low. The laundry room is in the basement. The patient requested services from [facility] at discharge and a referral was made at that time. Care management turner off met with the patient today post surgery who confirmed the discharge plan has not changed. Notify home health care completed. Patient to return home at discharge with new services from [facility]. YANE Mendoza-S Discharge Planning Living Arrangements: Spouse/significant other Support Systems: Spouse/significant other, Children, Family members, Friends/neighbors Assistance Needed: No Type of Residence: Private residence Prior to Admission Home Care Services: No Patient expects to be discharged to:: home Does the patient need discharge transport arranged?: No Current Home Equipment: Wheeled walker, Cane Anticipated HME: None Anticipated Discharge Plan Anticipated HME: None [facility] Disposition D/C Disposition: Home Health Care Services Related to Current Admission?: Yes Agency/Destination: [facility] Home Care Needs : Home health care Reason for Choice: Patient/Family preference documented in this encounter Visit Details Home Health Visit - Care Piedad n (unrecognized section and content) Visit Type -SN HH Routine Vi sit Discipline -Long-Term Problems Problem Start Date Status Goals Interventions Abnormal Findings Disciplines: Long-Term, Physical Therapy, Occupational Therapy, Speech Therapy, Home Health Aide, Medical Social Work, Spiritual Care, Art Therapy, Massage Therapy, Registered Dietitian, Student - Medical Social Work 10/15/2019 Active 1 goal linked to scheduled/documented intervention 1 goal intervention scheduled/documented in this visit Bleeding Precautions Disciplines: Long-Term 10/15/2019 Active - 1 problem intervention scheduled/documented in this visit Code Status Disciplines: Long-Term, Physical Therapy, Occupational Therapy, Speech Therapy, Home Health Aide, Medical Social Work, Spiritual Care, Art Therapy, Massage Therapy, Registered Dietitian, Student - Medical Social Work 10/15/2019 Active 1 goal linked to scheduled/documented intervention 1 goal intervention scheduled/documented in this visit Home Medication Management Disciplines: Long-Term 10/15/2019 Active 1 goal linked to scheduled/documented intervention 4 goal interventions scheduled/documented in this visit Learning/Teaching Needs - Joint Replacement Disciplines: Long-Term 10/15/2019 Active 1 goal linked to scheduled/documented intervention 4 goal interventions scheduled/documented in this visit Pain Management Disciplines: Long-Term, Physical Therapy, Occupational Therapy, Speech Therapy, Home Health Aide, Medical Social Work, Spiritual Care, Art Therapy, Massage Therapy, Registered Dietitian, Student - Medical Social Work 10/15/2019 Active 1 goal linked to scheduled/documented intervention 1 goal intervention scheduled/documented in this visit Prevention of Skin Breakdown - Pressure Ulcer Disciplines: Long-Term, Physical Therapy, Occupational Therapy, Speech Therapy, Home Health Aide, Medical Social Work, Spiritual Care, Art Therapy, Massage Therapy, Registered Dietitian, Student - Medical Social Work 10/15/2019 Active 1 goal linked to scheduled/documented intervention 1 goal intervention scheduled/documented in this visit Risk of Falls Disciplines: Long-Term, Physical Therapy, Occupational Therapy, Speech Therapy, Home Health Aide, Medical Social Work, Spiritual Care, Art Therapy, Massage Therapy, Registered Dietitian, Student - Medical Social Work 10/15/2019 Active 1 goal linked to scheduled/documented intervention 1 goal intervention scheduled/documented in this visit Skilled Assessment Disciplines: Long-Term 10/15/2019 Active 1 goal linked to scheduled/documented intervention 3 goal interventions scheduled/documented in this visit Goals Goal Associated Problem Outcome Goal Met? Visit Notes Assessment findings goal Abnormal Findings No Code status goal Code Status No Medication management goal Home Medication Management No Post-op complication goal Learning/Teaching Needs - Joint Replacement No Pain management goal Pain Management No HH/HSPC Goal Prevention of Skin Breakdown - Pressure Ulcer No Balance/Fall risk goal Risk of Falls No Rehospitalization joint replacement goal Skilled Assessment No Interventions Intervention Associated Problem/Goal Status Variance Visit Notes Report abnormal assessment to physician Problem:Abnormal Findings Goal:Assessment findings goal Completed Bleeding precautions Problem:Bleeding Precautions Completed Full Code Problem:Code Status Goal:Code status goal Completed Instruct on high risk medications Problem:Home Medication Management Goal:Medication management goal Completed Review and identify unnecessary therapeutic duplication; cardiovascular medication problems related to dizziness; continued hyper/hypotension or low pulse; falls, dizziness, or confusion; and inappropriate use of non-steroidal anti-inflammatory drugs (NSAIDs). Medication box Problem:Home Medication Management Goal:Medication management goal Completed Patient to fill medication box every Friday. SN to instruct Patient and monitor for proper filling and administration. Skilled assessment medications Problem:Home Medication Management Goal:Medication management goal Completed Skilled observation and assessment of patient's response to and for s/s of complications. Teach medication management Problem:Home Medication Management Goal:Medication management goal Completed Home medication management reviewed with Patient. Patient verbalizes understanding of treatment regimen and the importance of adherence. Incision site care Problem:Learning/Tea anna Needs - Joint Replacement Goal:Post-op complication goal Completed Instruct patient/caregiver in incision site care. Aquacel to remian in place until f/u with Dr. Hurt. Pt to report to SN if dressing becomes custodial saturated and feels spongy. Pt to tape dressing if it starts to peel off. Instruct patient/caregiver how to identify signs/symptoms of wound infection, fever, odor, redness, abnormal pain. Instruct diet Problem:Learning/Tea anna Needs - Joint Replacement Goal:Post-op complication goal Completed Patient instructed on low sugar diet and fluid restrictions/requireme nts. Patient verbalizes understanding of treatment regimen and the importance of adherence. Instruct on management of immobility complications Problem:Learning/Tea anna Needs - Joint Replacement Goal:Post-op complication goal Completed Instruct on the prevention of deep vein thrombosis Problem:Learning/Tea anna Needs - Joint Replacement Goal:Post-op complication goal Completed Instruct on pain management techniques Problem:Pain Management Goal:Pain management goal Completed Instruct Patient on medications and alternative strategies to relieve pain. Instruct prevention of pressure ulcers Problem:Prevention of Skin Breakdown - Pressure Ulcer Goal:HH/HSPC Goal Completed Instruct Patient in the use of pressure relieving devices/strategies: turn q 2 hours. Instruct on fall prevention Problem:Risk of Falls Goal:Balance/Fall risk goal Completed Obtain pulse oximetry Problem:Skilled Assessment Goal:Rehospitalizati on joint replacement goal Completed SN/STAMPING DIE MAKER BENCH obtain vital signs Problem:Skilled Assessment Goal:Rehospitalizati on joint replacement goal Completed Skilled observation and assessment general assessment Problem:Skilled Assessment Goal:Rehospitalizati on joint replacement goal Completed SN to perform general assessment to include height, weight, vital signs, and temperature; General assessment of systems: pulmonary, cardiovascular, neurologic, gastrointestinal, musculoskeletal, renal/urinary and integumentary and report any abnormalities or concerns to the physician. Visit Details Visit Type -PHLEBOTOMY PROGRAM COORDINATOR Routine Discipline -Long-Term Interventions Intervention Associated Problem/Goal Status Variance Visit Notes Report abnormal assessment to physician Problem:Abnormal Findings Goal:Assessment findings goal Completed Bleeding precautions Problem:Bleeding Precautions Completed Full Code Problem:Code Status Goal:Code status goal Completed Instruct on high risk medications Problem:Home Medication Management Goal:Medication management goal Completed Review and identify unnecessary therapeutic duplication; cardiovascular medication problems related to dizziness; continued hyper/hypotension or low pulse; falls, dizziness, or confusion; and inappropriate use of non-steroidal anti-inflammatory drugs (NSAIDs). Medication box Problem:Home Medication Management Goal:Medication management goal Completed medication list verified Skilled assessment medications Problem:Home Medication Management Goal:Medication management goal Completed Skilled observation and assessment of patient's response to and for s/s of complications, or exacerbation of disease process. Teach medication management Problem:Home Medication Management Goal:Medication management goal Completed Home medication management reviewed with Patient. Patient verbalizes knowledge of disease process, causative factors, complication, and management related to. Incision site care Problem:Learning/Tea anna Needs - Joint Replacement Goal:Post-op complication goal Completed Dressing to remain intact until removed by the doctor at follow up appointment Instruct diet Problem:Learning/Tea anna Needs - Joint Replacement Goal:Post-op complication goal Completed Patient instructed on low sugar and low salt diet and fluid restrictions/requireme nts. Patient verbalizes knowledge of disease process, causative factors, complication, and management related to. Instruct on management of immobility complications Problem:Learning/Tea anna Needs - Joint Replacement Goal:Post-op complication goal Completed Instruct on the prevention of deep vein thrombosis Problem:Learning/Tea anna Needs - Joint Replacement Goal:Post-op complication goal Completed Instruct on pain management techniques Problem:Pain Management Goal:Pain management goal Completed Instruct Patient on medications and alternative strategies to relieve pain. Instruct prevention of pressure ulcers Problem:Prevention of Skin Breakdown - Pressure Ulcer Goal:HH/[facility] Goal Completed Instruct Patient in the use of pressure relieving devices/strategies: moisturizer. Instruct on fall prevention Problem:Risk of Falls Goal:Balance/Fall risk goal Completed Obtain pulse oximetry Problem:Skilled Assessment Goal:Rehospitalizati on joint replacement goal Completed SN/STAMPING DIE MAKER BENCH obtain vital signs Problem:Skilled Assessment Goal:Rehospitalizati on joint replacement goal Completed Skilled observation and assessment general assessment Problem:Skilled Assessment Goal:Rehospitalizati on joint replacement goal Completed SN to perform general assessment to include height, weight, vital signs, and temperature; General assessment of systems: pulmonary, cardiovascular, neurologic, gastrointestinal, endocrine, hematologic, musculoskeletal, renal/urinary and integumentary and report any abnormalities or concerns to the physician. Visit Details Visit Type -THERAPEUTIC PROGRAM WORKER Routine Visi t Discipline -Physical Therapy Problems Problem Start Date Status Goals Interventions AP02- Decreased Knowledge of Pain Management Disciplines: Physical Therapy 10/17/2019 Active 1 goal linked to scheduled/documented intervention 1 goal intervention scheduled/documented in this visit AP03- Decreased Knowledge of Edema Control Disciplines: Physical Therapy 10/17/2019 Active 1 goal linked to scheduled/documented intervention 1 goal intervention scheduled/documented in this visit Abnormal Findings Disciplines: Long-Term, Physical Therapy, Occupational Therapy, Speech Therapy, Home Health Aide, Medical Social Work, Spiritual Care, Art Therapy, Massage Therapy, Registered Dietitian, Student - Medical Social Work 10/15/2019 Active 1 goal linked to scheduled/documented intervention 1 goal intervention scheduled/documented in this visit PT11- Decreased ROM Disciplines: Physical Therapy 10/17/2019 Active 1 goal linked to scheduled/documented intervention 1 goal intervention scheduled/documented in this visit PT14- Decreased Strength Disciplines: Physical Therapy 10/17/2019 Active 1 goal linked to scheduled/documented intervention 1 goal intervention scheduled/documented in this visit PT16- Decreased knowledge of Home Exercise Program Disciplines: Physical Therapy 10/17/2019 Active 1 goal linked to scheduled/documented intervention 1 goal intervention scheduled/documented in this visit PT20- Decreased Ambulation Ability Disciplines: Physical Therapy 10/17/2019 Active 1 goal linked to scheduled/documented intervention 1 goal intervention scheduled/documented in this visit PT22- Decreased Stair Negotiation Ability Disciplines: Physical Therapy 10/17/2019 Active 1 goal linked to scheduled/documented intervention 1 goal intervention scheduled/documented in this visit PT24- Decreased Balance/Increased Fall Risk Disciplines: Physical Therapy 10/17/2019 Active 1 goal linked to scheduled/documented intervention 1 goal intervention scheduled/documented in this visit Pain Management Disciplines: Long-Term, Physical Therapy, Occupational Therapy, Speech Therapy, Home Health Aide, Medical Social Work, Spiritual Care, Art Therapy, Massage Therapy, Registered Dietitian, Student - Medical Social Work 10/15/2019 Active 1 goal linked to scheduled/documented intervention 1 goal intervention scheduled/documented in this visit Risk of Falls Disciplines: Long-Term, Physical Therapy, Occupational Therapy, Speech Therapy, Home Health Aide, Medical Social Work, Spiritual Care, Art Therapy, Massage Therapy, Registered Dietitian, Student - Medical Social Work 10/15/2019 Active 1 goal linked to scheduled/documented intervention 1 goal intervention scheduled/documented in this visit Goals Goal Associated Problem Outcome Goal Met? Visit Notes Pain management education goal AP02- Decreased Knowledge of Pain Management No Edema education goal AP03- Decreased Knowledge of Edema Control No Assessment findings goal Abnormal Findings No Range of motion goal PT11- Decreased ROM No Strength PT Ortho goal PT14- Decreased Strength No HEP education goal PT16- Decreased knowledge of Home Exercise Program No Ambulation PT Ortho goal PT20- Decreased Ambulation Ability No Stair negotiation PT Ortho goal PT22- Decreased Stair Negotiation Ability No Balance/Fall risk PT Ortho goal PT24- Decreased Balance/Increased Fall Risk No Pain management goal Pain Management No Balance/Fall risk goal Risk of Falls No Interventions Intervention Associated Problem/Goal Status Variance Visit Notes Assess/Instruct in pain management techniques and evaluate effectiveness. Problem:AP02- Decreased Knowledge of Pain Management Goal:Pain management education goal Completed Assess/Instruct in edema management techniques Problem:AP03- Decreased Knowledge of Edema Control Goal:Edema education goal Completed Report abnormal assessment to physician Problem:Abnormal Findings Goal:Assessment findings goal Completed Assess/Instruct in therapeutic exercises and perform manual techniques to improve functional ROM. Problem:PT11- Decreased ROM Goal:Range of motion goal Completed see knee ROM section PT muscle re-education Problem:PT14- Decreased Strength Goal:Strength PT Ortho goal Completed Patient instructed in BLE execises to increase LE strength s/p R TKR. THERAPEUTIC PROGRAM WORKER intructed patient in the following exercises to improve functional ROM to facilitate improved gait pattern and reduce falls risk with standing task. See treatment log for specifics PT establish or upgrade home program Problem:PT16- Decreased knowledge of Home Exercise Program Goal:HEP education goal Completed reviewed all exercises in joint camp booklet in place with good understanding and provided skilled pt education on completing these daily per protocol Assess/Instruct in safe gait techniques in home. Problem:PT20- Decreased Ambulation Ability Goal:Ambulation PT Ortho goal Completed therapist provided verbal education on safe posture for amb with FWW, including the need to increase right knee flexion with flexion with swing phase to decrease risk for falls. Patient able to amb 50 ft x 1 with FWW with SBA Assess/Instruct in safe stair negotiation techniques Problem:PT22- Decreased Stair Negotiation Ability Goal:Stair negotiation PT Ortho goal Scheduled with variance Time limitation Assess/Instruct in balance and fall prevention techniques Problem:PT24- Decreased Balance/Increased Fall Risk Goal:Balance/Fall risk PT Ortho goal Scheduled with variance Time limitation Instruct on pain management techniques Problem:Pain Management Goal:Pain management goal Completed Instruct Patient on medications and alternative strategies to relieve pain. Instruct on fall prevention Problem:Risk of Falls Goal:Balance/Fall risk goal Completed Visit Details Visit Type - HH [facility] Discipline -Long-Term Interventions Intervention Associated Problem/Goal Status Variance Visit Notes Report abnormal assessment to physician Problem:Abnormal Findings Goal:Assessment findings goal Completed Bleeding precautions Problem:Bleeding Precautions Completed Full Code Problem:Code Status Goal:Code status goal Completed Instruct on high risk medications Problem:Home Medication Management Goal:Medication management goal Completed Pt instructed to follow orders for Aragon and Tylenol. Instructed to take ASA as ordered. Medication box Problem:Home Medication Management Goal:Medication management goal Completed helps, multiple vitamins noted. Skilled assessment medications Problem:Home Medication Management Goal:Medication management goal Completed Teach medication management Problem:Home Medication Management Goal:Medication management goal Completed Pt states that she has not taking Miralax yet, had BM today. Incision site care Problem:Learning/Teach ing Needs - Joint Replacement Goal:Post-op complication goal Completed Instruct diet Problem:Learning/Teach ing Needs - Joint Replacement Goal:Post-op complication goal Completed Instruct on management of immobility complications Problem:Learning/Teach ing Needs - Joint Replacement Goal:Post-op complication goal Completed Instruct on the prevention of deep vein thrombosis Problem:Learning/Teach ing Needs - Joint Replacement Goal:Post-op complication goal Completed Instruct on pain management techniques Problem:Pain Management Goal:Pain management goal Completed Instruct prevention of pressure ulcers Problem:Prevention of Skin Breakdown - Pressure Ulcer Goal:HH/HSPC Goal Completed Instruct on fall prevention Problem:Risk of Falls Goal:Balance/Fall risk goal Completed Obtain pulse oximetry Problem:Skilled Assessment Goal:Rehospitalization joint replacement goal Completed SN/STAMPING DIE MAKER BENCH obtain vital signs Problem:Skilled Assessment Goal:Rehospitalization joint replacement goal Completed Skilled observation and assessment general assessment Problem:Skilled Assessment Goal:Rehospitalization joint replacement goal Completed Visit Details Visit Type -PT Initial Evalu ation Discipline -Physical Therapy Interventions Intervention Associated Problem/Goal Status Variance Visit Notes Assess/Instruct in pain management techniques and evaluate effectiveness. Problem:AP02- Decreased Knowledge of Pain Management Goal:Pain management education goal Completed SKILLED INTERVENTION: Recommended patient take pain medication as needed and as prescribed in addition to elevating LE and icing R knee at least 3x/day for 1 hour for pain modulation. Assess/Instruct in edema management techniques Problem:AP03- Decreased Knowledge of Edema Control Goal:Edema education goal Completed SKILLED INTERVENTION: Stressed importance of LE elevation throughout the day for swelling modulation with good patient understanding. Report abnormal assessment to physician Problem:Abnormal Findings Goal:Assessment findings goal Scheduled Assess/Instruct in therapeutic exercises and perform manual techniques to improve functional ROM. Problem:PT11- Decreased ROM Goal:Range of motion goal Completed SKILLED INTERVENTION: R knee ROM measured in sitting and supine positions this date, see eval for specifics. Ther ex completed to increase R knee ROM for improved sit to stand transfers and gait kinematics, see treatment log for specifics. PT muscle re-education Problem:PT14- Decreased Strength Goal:Strength PT Ortho goal Completed SKILLED INTERVENTION: LE strength assessed via MMT grades this session, see eval for specifics. Ther ex completed to increase LE strength for improved transfers, gait and standing activity tolerance, see treatmnt log for specifics. PT establish or upgrade home program Problem:PT16- Decreased knowledge of Home Exercise Program Goal:HEP education goal Completed SKILLED INTERVENTION: Reviewed HEP located in joint camp booklet with good patient understanding of prescribed ther ex and recommended reps/ sets/ frequency. Recommended patient continue elevating LEs and icing R knee at least 3x/ day for swelling and pain modulation. Educated patient on correct positioning and propping to elevate LE; stressing importance to not have anything placed under knee joint. Patient demonstrating understanding of information taught. Encouraged patient to ambulate short distances frequently throughout the day with use of AD to reduce joint/ muscular stiffness and to increase LE strength. Assess/Instruct in safe gait techniques in home. Problem:PT20- Decreased Ambulation Ability Goal:Ambulation PT Ortho goal Completed SKILLED INTERVENTION: Gait training completed, see eval for specifics. Assess/Instruct in safe stair negotiation techniques Problem:PT22- Decreased Stair Negotiation Ability Goal:Stair negotiation PT Ortho goal Completed SKILLED INTERVENTION: Educational discussion on correct step to stair ambulation pattern post operatively for safety and greater ease with task. Assess/Instruct in balance and fall prevention techniques Problem:PT24- Decreased Balance/Increased Fall Risk Goal:Balance/Fall risk PT Ortho goal Completed SKILLED INTERVENTION: Instructed on fall prevention strategies this session. Skilled transfer and gait training completed including education on safety awareness and parameters to decrease fall risk. Recommended continued use of AD with all standing activity and ambulation for safety at this time. Instruct on pain management techniques Problem:Pain Management Goal:Pain management goal Scheduled Instruct on fall prevention Problem:Risk of Falls Goal:Balance/Fall risk goal Scheduled Interventions Intervention Associated Problem/Goal Status Variance Visit Notes Assess/Instruct in pain management techniques and evaluate effectiveness. Problem:AP02- Decreased Knowledge of Pain Management Goal:Pain management education goal Completed Assess/Instruct in edema management techniques Problem:AP03- Decreased Knowledge of Edema Control Goal:Edema education goal Completed Report abnormal assessment to physician Problem:Abnormal Findings Goal:Assessment findings goal Completed Assess/Instruct in therapeutic exercises and perform manual techniques to improve functional ROM. Problem:PT11- Decreased ROM Goal:Range of motion goal Completed see ROM section PT muscle re-education Problem:PT14- Decreased Strength Goal:Strength PT Ortho goal Completed Patient instructed in RLE execises to increase R LE strength s/p Right knee TKR. THERAPEUTIC PROGRAM WORKER intructed patient in the following exercises to improve functional ROM to facilitate improved gait pattern and reduce falls risk with standing task. See treatment log for details PT establish or upgrade home program Problem:PT16- Decreased knowledge of Home Exercise Program Goal:HEP education goal Completed reviewed exercises in joint camp booklet in place with good understanding and provided skilled pt education on completing these daily Assess/Instruct in safe gait techniques in home. Problem:PT20- Decreased Ambulation Ability Goal:Ambulation PT Ortho goal Completed therapist provided verbal education on safe posture for amb with FWW, including the need to increase right knee flexion with swing phase of gait to decrease risk for falls. Patient able to amb 100 ft x 1 with FWW with CGA Assess/Instruct in safe stair negotiation techniques Problem:PT22- Decreased Stair Negotiation Ability Goal:Stair negotiation PT Ortho goal Scheduled with variance Time limitation Assess/Instruct in balance and fall prevention techniques Problem:PT24- Decreased Balance/Increased Fall Risk Goal:Balance/Fall risk PT Ortho goal Completed see rehab tests Instruct on pain management techniques Problem:Pain Management Goal:Pain management goal Completed Instruct Patient on medications and alternative strategies to relieve pain. Instruct on fall prevention Problem:Risk of Falls Goal:Balance/Fall risk goal Completed Visit Details Visit Type -SN HH OASIS Disc harge Discipline -Long-Term Problems Problem Start Date Status Goals Interventions Abnormal Findings Disciplines: Long-Term, Physical Therapy, Occupational Therapy, Speech Therapy, Home Health Aide, Medical Social Work, Spiritual Care, Art Therapy, Massage Therapy, Registered Dietitian, Student - Medical Social Work 10/15/2019 Resolved on 10/28/2019 1 goal linked to scheduled/documente d intervention 1 goal intervention scheduled/documented in this visit Bleeding Precautions Disciplines: Long-Term 10/15/2019 Resolved on 10/28/2019 - 1 problem intervention scheduled/documented in this visit Code Status Disciplines: Long-Term, Physical Therapy, Occupational Therapy, Speech Therapy, Home Health Aide, Medical Social Work, Spiritual Care, Art Therapy, Massage Therapy, Registered Dietitian, Student - Medical Social Work 10/15/2019 Resolved on 10/28/2019 1 goal linked to scheduled/documente d intervention 1 goal intervention scheduled/documented in this visit Home Medication Management Disciplines: Long-Term 10/15/2019 Resolved on 10/28/2019 1 goal linked to scheduled/documente d intervention 4 goal interventions scheduled/documented in this visit Learning/Teaching Needs - Joint Replacement Disciplines: Long-Term 10/15/2019 Resolved on 10/28/2019 1 goal linked to scheduled/documente d intervention 4 goal interventions scheduled/documented in this visit Pain Management Disciplines: Long-Term, Physical Therapy, Occupational Therapy, Speech Therapy, Home Health Aide, Medical Social Work, Spiritual Care, Art Therapy, Massage Therapy, Registered Dietitian, Student - Medical Social Work 10/15/2019 Resolved on 10/28/2019 1 goal linked to scheduled/documente d intervention 1 goal intervention scheduled/documented in this visit Risk of Falls Disciplines: Long-Term, Physical Therapy, Occupational Therapy, Speech Therapy, Home Health Aide, Medical Social Work, Spiritual Care, Art Therapy, Massage Therapy, Registered Dietitian, Student - Medical Social Work 10/15/2019 Resolved on 10/28/2019 1 goal linked to scheduled/documente d intervention 1 goal intervention scheduled/documented in this visit Skilled Assessment Disciplines: Long-Term 10/15/2019 Resolved on 10/28/2019 1 goal linked to scheduled/documente d intervention 3 goal interventions scheduled/documented in this visit Goals Goal Associated Problem Outcome Goal Met? Visit Notes Assessment findings goal Abnormal Findings No Code status goal Code Status No Medication management goal Home Medication Management No Post-op complication goal Learning/Teaching Needs - Joint Replacement No Pain management goal Pain Management No Balance/Fall risk goal Risk of Falls No Rehospitalization joint replacement goal Skilled Assessment No Interventions Intervention Associated Problem/Goal Status Variance Visit Notes Report abnormal assessment to physician Problem:Abnormal Findings Goal:Assessment findings goal Completed Bleeding precautions Problem:Bleeding Precautions Completed Full Code Problem:Code Status Goal:Code status goal Completed Instruct on high risk medications Problem:Home Medication Management Goal:Medication management goal Completed Review and identify unnecessary therapeutic duplication; cardiovascular medication problems related to dizziness; continued hyper/hypotension or low pulse; falls, dizziness, or confusion; and inappropriate use of non-steroidal anti-inflammatory drugs (NSAIDs). Medication box Problem:Home Medication Management Goal:Medication management goal Completed Patient to fill medication box every Friday. SN to instruct Patient and monitor for proper filling and administration. Skilled assessment medications Problem:Home Medication Management Goal:Medication management goal Completed Skilled observation and assessment of patient's response to new medications, changed medications. Teach medication management Problem:Home Medication Management Goal:Medication management goal Completed Home medication management reviewed with Patient. Patient demonstrates ability to perform safe home medication administration. Incision site care Problem:Learning/Tea anna Needs - Joint Replacement Goal:Post-op complication goal Completed SN to instruct Patient incision site care: Aquacel to remian in place until f/u with Dr. Hurt. Pt to report to SN if dressing becomes custodial saturated and feels spongy. Pt to tape dressing if it starts to peel off. Instruct patient/caregiver how to identify signs/symptoms of wound infection, fever, odor, redness, abnormal pain. Instruct diet Problem:Learning/Tea anna Needs - Joint Replacement Goal:Post-op complication goal Completed Patient instructed on high protein diet and fluid restrictions/requireme nts. Patient verbalizes knowledge of nutritional requirements. Instruct on management of immobility complications Problem:Learning/Tea anna Needs - Joint Replacement Goal:Post-op complication goal Completed Instruct on the prevention of deep vein thrombosis Problem:Learning/Tea anna Needs - Joint Replacement Goal:Post-op complication goal Completed Instruct on pain management techniques Problem:Pain Management Goal:Pain management goal Completed Instruct Patient on medications and alternative strategies to relieve pain. Instruct on fall prevention Problem:Risk of Falls Goal:Balance/Fall risk goal Completed Obtain pulse oximetry Problem:Skilled Assessment Goal:Rehospitalizati on joint replacement goal Completed SN/STAMPING DIE MAKER BENCH obtain vital signs Problem:Skilled Assessment Goal:Rehospitalizati on joint replacement goal Completed Skilled observation and assessment general assessment Problem:Skilled Assessment Goal:Rehospitalizati on joint replacement goal Completed SN to perform general assessment to include height, weight, vital signs, and temperature; General assessment of systems: pulmonary, cardiovascular, neurologic, gastrointestinal, endocrine, hematologic, musculoskeletal, renal/urinary, integumentary and psychosocial/psychiatr ic/mental and report any abnormalities or concerns to the physician. Visit Details Visit Type -PT Non-OASIS/Dis cipl Discharge Discipline -Physical Therapy Problems Problem Start Date Status Goals Interventions AP02- Decreased Knowledge of Pain Management Disciplines: Physical Therapy 10/17/2019 Active 1 goal linked to scheduled/documente d intervention 1 goal intervention scheduled/documented in this visit AP03- Decreased Knowledge of Edema Control Disciplines: Physical Therapy 10/17/2019 Active 1 goal linked to scheduled/documente d intervention 1 goal intervention scheduled/documented in this visit Abnormal Findings Disciplines: Long-Term, Physical Therapy, Occupational Therapy, Speech Therapy, Home Health Aide, Medical Social Work, Spiritual Care, Art Therapy, Massage Therapy, Registered Dietitian, Student - Medical Social Work 10/15/2019 Resolved on 10/28/2019 1 goal linked to scheduled/documente d intervention 1 goal intervention scheduled/documented in this visit PT11- Decreased ROM Disciplines: Physical Therapy 10/17/2019 Active 1 goal linked to scheduled/documente d intervention 1 goal intervention scheduled/documented in this visit PT14- Decreased Strength Disciplines: Physical Therapy 10/17/2019 Active 1 goal linked to scheduled/documente d intervention 1 goal intervention scheduled/documented in this visit PT16- Decreased knowledge of Home Exercise Program Disciplines: Physical Therapy 10/17/2019 Active 1 goal linked to scheduled/documente d intervention 1 goal intervention scheduled/documented in this visit PT20- Decreased Ambulation Ability Disciplines: Physical Therapy 10/17/2019 Active 1 goal linked to scheduled/documente d intervention 1 goal intervention scheduled/documented in this visit PT22- Decreased Stair Negotiation Ability Disciplines: Physical Therapy 10/17/2019 Active 1 goal linked to scheduled/documente d intervention 1 goal intervention scheduled/documented in this visit PT24- Decreased Balance/Increased Fall Risk Disciplines: Physical Therapy 10/17/2019 Active 1 goal linked to scheduled/documente d intervention 1 goal intervention scheduled/documented in this visit Pain Management Disciplines: Long-Term, Physical Therapy, Occupational Therapy, Speech Therapy, Home Health Aide, Medical Social Work, Spiritual Care, Art Therapy, Massage Therapy, Registered Dietitian, Student - Medical Social Work 10/15/2019 Resolved on 10/28/2019 1 goal linked to scheduled/documente d intervention 1 goal intervention scheduled/documented in this visit Risk of Falls Disciplines: Long-Term, Physical Therapy, Occupational Therapy, Speech Therapy, Home Health Aide, Medical Social Work, Spiritual Care, Art Therapy, Massage Therapy, Registered Dietitian, Student - Medical Social Work 10/15/2019 Resolved on 10/28/2019 1 goal linked to scheduled/documente d intervention 1 goal intervention scheduled/documented in this visit Goals Goal Associated Problem Outcome Goal Met? Visit Notes Pain management education goal AP02- Decreased Knowledge of Pain Management Partially Met No Edema education goal AP03- Decreased Knowledge of Edema Control Met No Assessment findings goal Abnormal Findings No Range of motion goal PT11- Decreased ROM Met No Strength PT Ortho goal PT14- Decreased Strength Met No HEP education goal PT16- Decreased knowledge of Home Exercise Program Met No Ambulation PT Ortho goal PT20- Decreased Ambulation Ability Met No Stair negotiation PT Ortho goal PT22- Decreased Stair Negotiation Ability Met No Balance/Fall risk PT Ortho goal PT24- Decreased Balance/Increased Fall Risk Met No Pain management goal Pain Management No Balance/Fall risk goal Risk of Falls Met No Interventions Intervention Associated Problem/Goal Status Variance Visit Notes Assess/Instruct in pain management techniques and evaluate effectiveness. Problem:AP02- Decreased Knowledge of Pain Management Goal:Pain management education goal Completed Patient to continue taking pain medication as needed/ prescribed for pain modulation in addition to icing R knee throughout the day. Assess/Instruct in edema management techniques Problem:AP03- Decreased Knowledge of Edema Control Goal:Edema education goal Completed Patient to continue elevating LEs throughout the day for swelling control. Report abnormal assessment to physician Problem:Abnormal Findings Goal:Assessment findings goal Completed No abnormal assessment to report to physician this date. Assess/Instruct in therapeutic exercises and perform manual techniques to improve functional ROM. Problem:PT11- Decreased ROM Goal:Range of motion goal Completed SKILLED INTERVENTION: R knee ROM measured in supine position this date, see note for specifics. Ther ex completed to increase R knee ROM for improved sit to stand transfers and gait kinematics, see treatment log for specifics. PT muscle re-education Problem:PT14- Decreased Strength Goal:Strength PT Ortho goal Completed SKILLED INTERVENTION: RLE strength assessed via MMT grades this session, see note for specifics. Ther ex completed to increase LE strength for improved transfers, gait and standing activity tolerance, see treatment log for specifics. PT establish or upgrade home program Problem:PT16- Decreased knowledge of Home Exercise Program Goal:HEP education goal Completed SKILLED INTERVENTION: Reviewed HEP with good patient understanding of prescribed ther ex and recommended reps/ sets/ frequency. Recommended patient continue elevating LEs and icing R knee at least 3x/ day for swelling and pain modulation. Encouraged patient to continue ambulating short distances frequently throughout the day to reduce joint/ muscular stiffness and to increase LE strength. Assess/Instruct in safe gait techniques in home. Problem:PT20- Decreased Ambulation Ability Goal:Ambulation PT Ortho goal Completed SKILLED INTERVENTION: Gait training completed, see eval for specifics. Assess/Instruct in safe stair negotiation techniques Problem:PT22- Decreased Stair Negotiation Ability Goal:Stair negotiation PT Ortho goal Completed Patient with ability to safely ascend/ descend 1 flight of stairs to second level of home; mod I. Assess/Instruct in balance and fall prevention techniques Problem:PT24- Decreased Balance/Increased Fall Risk Goal:Balance/Fall risk PT Ortho goal Completed SKILLED INTERVENTION: Timed Up and Go test completed safely in 11 seconds without AD; Good dynamic standing balance upon change of direction. Recommended patient take AD for safety with ambulation when leaving the home. Instruct on pain management techniques Problem:Pain Management Goal:Pain management goal Scheduled Instruct on fall prevention Problem:Risk of Falls Goal:Balance/Fall risk goal Completed See Balance and Fall Prevention tab for specifics. Interventions Intervention Associated Problem/Goal Status Variance Visit Notes Assess/Instruct in pain management techniques and evaluate effectiveness. Problem:AP02- Decreased Knowledge of Pain Management Goal:Pain management education goal Completed Assess/Instruct in edema management techniques Problem:AP03- Decreased Knowledge of Edema Control Goal:Edema education goal Completed Report abnormal assessment to physician Problem:Abnormal Findings Goal:Assessment findings goal Completed Assess/Instruct in therapeutic exercises and perform manual techniques to improve functional ROM. Problem:PT11- Decreased ROM Goal:Range of motion goal Completed SEE ROM PT muscle re-education Problem:PT14- Decreased Strength Goal:Strength PT Ortho goal Completed Patient instructed in RLE execises to increase LE strength s/p right TKR. THERAPEUTIC PROGRAM WORKER intructed patient in the following exercises to improve functional ROM to facilitate improved gait pattern and reduce falls risk with standing task. See treatment log PT establish or upgrade home program Problem:PT16- Decreased knowledge of Home Exercise Program Goal:HEP education goal Completed reviewed programs in place with good understanding and provided skilled pt education on completing these daily Assess/Instruct in safe gait techniques in home. Problem:PT20- Decreased Ambulation Ability Goal:Ambulation PT Ortho goal Completed independent with QC with household amb Assess/Instruct in safe stair negotiation techniques Problem:PT22- Decreased Stair Negotiation Ability Goal:Stair negotiation PT Ortho goal Completed ascended/descended 1 flight of stairs with sidestepping methodology while descending with sup Assess/Instruct in balance and fall prevention techniques Problem:PT24- Decreased Balance/Increased Fall Risk Goal:Balance/Fall risk PT Ortho goal Completed see TUG test Instruct on pain management techniques Problem:Pain Management Goal:Pain management goal Completed Instruct Patient on medications and alternative strategies to relieve pain. Instruct on fall prevention Problem:Risk of Falls Goal:Balance/Fall risk goal Completed Interventions Intervention Associated Problem/Goal Status Variance Visit Notes Assess/Instruct in pain management techniques and evaluate effectiveness. Problem:AP02- Decreased Knowledge of Pain Management Goal:Pain management education goal Completed Assess/Instruct in edema management techniques Problem:AP03- Decreased Knowledge of Edema Control Goal:Edema education goal Completed Report abnormal assessment to physician Problem:Abnormal Findings Goal:Assessment findings goal Completed Assess/Instruct in therapeutic exercises and perform manual techniques to improve functional ROM. Problem:PT11- Decreased ROM Goal:Range of motion goal Completed see ROM section PT muscle re-education Problem:PT14- Decreased Strength Goal:Strength PT Ortho goal Completed Patient instructed in RLE execises to increase LE strength s/p R TKR. THERAPEUTIC PROGRAM WORKER intructed patient in the following exercises to improve functional ROM to facilitate improved gait pattern and reduce falls risk with standing task. See treatment log for specifics PT establish or upgrade home program Problem:PT16- Decreased knowledge of Home Exercise Program Goal:HEP education goal Completed reviewed programs in joint camp booklet with good understanding and provided skilled pt education on completing these daily Assess/Instruct in safe gait techniques in home. Problem:PT20- Decreased Ambulation Ability Goal:Ambulation PT Ortho goal Completed therapist provided verbal education on safe posture for amb with FWW, including the need to increase right knee flexion with swing phase of gait to decrease risk for falls. Patient able to amb 100 ft x 1 with FWW with sup Assess/Instruct in safe stair negotiation techniques Problem:PT22- Decreased Stair Negotiation Ability Goal:Stair negotiation PT Ortho goal Scheduled with variance Time limitation Assess/Instruct in balance and fall prevention techniques Problem:PT24- Decreased Balance/Increased Fall Risk Goal:Balance/Fall risk PT Ortho goal Scheduled with variance Time limitation Instruct on pain management techniques Problem:Pain Management Goal:Pain management goal Completed Instruct Patient on medications and alternative strategies to relieve pain. Instruct on fall prevention Problem:Risk of Falls Goal:Balance/Fall risk goal Completed Interventions Intervention Associated Problem/Goal Status Variance Visit Notes Assess/Instruct in pain management techniques and evaluate effectiveness. Problem:AP02- Decreased Knowledge of Pain Management Goal:Pain management education goal Completed Assess/Instruct in edema management techniques Problem:AP03- Decreased Knowledge of Edema Control Goal:Edema education goal Completed Report abnormal assessment to physician Problem:Abnormal Findings Goal:Assessment findings goal Completed Assess/Instruct in therapeutic exercises and perform manual techniques to improve functional ROM. Problem:PT11- Decreased ROM Goal:Range of motion goal Completed see ROM section PT muscle re-education Problem:PT14- Decreased Strength Goal:Strength PT Ortho goal Completed atient instructed in RLE execises to increase LE strength s/p Right TKR. THERAPEUTIC PROGRAM WORKER intructed patient in the following exercises to improve functional ROM to facilitate improved gait pattern and reduce falls risk with standing task. See treatment log PT establish or upgrade home program Problem:PT16- Decreased knowledge of Home Exercise Program Goal:HEP education goal Completed reviewed programs in joint camp booklet in place with good understanding and provided skilled pt education on completing these daily Assess/Instruct in safe gait techniques in home. Problem:PT20- Decreased Ambulation Ability Goal:Ambulation PT Ortho goal Completed therapist provided verbal education on safe posture for amb with QC, including the need for a wider KAITLYN and to increase right knee flexion with swing phase of gait to decrease risk for falls. Patient able to amb 50 ft with QC Pt only has medium basequad cane. Recommended pt to purchase or borrow a straight cane as QC is a tripping hazard and cumbersome Assess/Instruct in safe stair negotiation techniques Problem:PT22- Decreased Stair Negotiation Ability Goal:Stair negotiation PT Ortho goal Completed educational discussion this date will attempt next session Assess/Instruct in balance and fall prevention techniques Problem:PT24- Decreased Balance/Increased Fall Risk Goal:Balance/Fall risk PT Ortho goal Completed completed TUG test within 20 sec Instruct on pain management techniques Problem:Pain Management Goal:Pain management goal Completed Instruct Patient on medications and alternative strategies to relieve pain. Instruct on fall prevention Problem:Risk of Falls Goal:Balance/Fall risk goal Completed Interventions Intervention Associated Problem/Goal Status Variance Visit Notes Report abnormal assessment to physician Problem:Abnormal Findings Goal:Assessment findings goal Completed Bleeding precautions Problem:Bleeding Precautions Completed Full Code Problem:Code Status Goal:Code status goal Completed Instruct on high risk medications Problem:Home Medication Management Goal:Medication management goal Completed Review and identify unnecessary therapeutic duplication; cardiovascular medication problems related to dizziness; continued hyper/hypotension or low pulse; falls, dizziness, or confusion; and inappropriate use of non-steroidal anti-inflammatory drugs (NSAIDs). Medication box Problem:Home Medication Management Goal:Medication management goal Completed Patient, Caregiver to fill medication box every Friday. SN to instruct Patient and Caregiver and monitor for proper filling and administration. Skilled assessment medications Problem:Home Medication Management Goal:Medication management goal Completed Skilled observation and assessment of patient's response to and for s/s of complications. Teach medication management Problem:Home Medication Management Goal:Medication management goal Completed Home medication management reviewed with Patient and Caregiver. Patient and Caregiver verbalizes understanding of treatment regimen and the importance of adherence. Incision site care Problem:Learning/Tea anna Needs - Joint Replacement Goal:Post-op complication goal Completed Instruct patient/caregiver in incision site care. Aquacel to remian in place until f/u with Dr. Hurt. Pt to report to SN if dressing becomes custodial saturated and feels spongy. Pt to tape dressing if it starts to peel off. Instruct patient/caregiver how to identify signs/symptoms of wound infection, fever, odor, redness, abnormal pain. Instruct diet Problem:Learning/Tea anna Needs - Joint Replacement Goal:Post-op complication goal Completed Patient and Caregiver instructed on high protein diet and fluid restrictions/requireme nts. Patient and Caregiver verbalizes understanding of treatment regimen and the importance of adherence. Instruct on management of immobility complications Problem:Learning/Tea anna Needs - Joint Replacement Goal:Post-op complication goal Completed Instruct on the prevention of deep vein thrombosis Problem:Learning/Tea anna Needs - Joint Replacement Goal:Post-op complication goal Completed Instruct on pain management techniques Problem:Pain Management Goal:Pain management goal Completed Instruct Patient and Caregiver on medications and alternative strategies to relieve pain. Instruct prevention of pressure ulcers Problem:Prevention of Skin Breakdown - Pressure Ulcer Goal:HH/HSPC Goal Completed Instruct Patient and Caregiver in the use of pressure relieving devices/strategies: turn q 2 hours. Instruct on fall prevention Problem:Risk of Falls Goal:Balance/Fall risk goal Completed Obtain pulse oximetry Problem:Skilled Assessment Goal:Rehospitalizati on joint replacement goal Completed SN/STAMPING DIE MAKER BENCH obtain vital signs Problem:Skilled Assessment Goal:Rehospitalizati on joint replacement goal Completed Skilled observation and assessment general assessment Problem:Skilled Assessment Goal:Rehospitalizati on joint replacement goal Completed SN to perform general assessment to include height, weight, vital signs, and temperature; General assessment of systems: pulmonary, cardiovascular, neurologic, gastrointestinal, musculoskeletal, renal/urinary and integumentary and report any abnormalities or concerns to the physician. Narratives Home Health Visit - Actions and Narratives (unrecognized section and content) Patient is a 73 y/o female r eferred to physical therapy by Dr. Hurt to address impairments and functional limitations s/p R TKA. Surgery Date: 10/13/2019 Returned Home: 10/14/2019 Ongoing R knee pain for > 5 years prior to surgery. Living arrangement/ House Set Up: Patient lives with spouse in two story home + basement. Primary bedroom and bathroom on second level, no handrail. Laundry is located in basement level of home, 1 handrail leading to basement level. Patient is currently staying on main, first level. Has a bathroom on this level also. PLOF: Ambulation without AD, (+) driving, independent with ADL/ IADLs Falls in last 6 months: 1 Equipment: FWW, quad cane, shower chair (not set up yet) Post Op dressing: intact, small spots of drainage Goal: be able to walk without pain Physician follow up appt: 11/01/2019 Preferred appt time: AM, PLEASE CALL PATIENT'S CELL TO SCHEDULE APPTS: #[phone] Patient agrees to PT Frequency at 1w1, 3w2. Treatment may consist of any combination of the following: Ther ex for ROM/ strengthening, NMR, Transfer/ Gait/ Stair training, HEP, cryotherapy, and patient education. Skilled PT services are required to increase R knee ROM and LE strength for improved gait and for safe return to or > PLOF. Narratives Plan for next visit: cont to increase LE strength and balance to decrease risk for falls Narratives Plan for next visit: cont to improve ROM and stair training Actions Medication review, basic ass essment, education provided on diet, swelling, pain control, elevation, ice, strengthening, daily exercises and safety. Bippa was signed for discharge on next visit, patient is okay with the same. CM updated on the same. Narratives HOMEBOUND STATUS Criteria 1: Assistive Device(s): Walker Needs assistance of at least 1 to leave home Criteria 2: Patient confined to home due to limited ambulation related to RTK, unsteady gait/poor balance, uncontrolled/unresolved pain related to RTK and poor endurance related to RTK Type of Home: 2-story house, handrails, can live on one level Narratives Plan for next visit: PT D/C Narratives Plan for next visit: stair t raining with cane Actions pain management and elevatio n reviewed and reinforced with the pt. Narratives Plan for next visit: stairs <item> Privacy Markings (unrecogniz ed section and content) Section Author: Suzanna Fernández PROHIBITION ON REDISCLOSURE OF CONFIDENTIAL INFORMATION This notice accompanies a disclosure of information concerning a client made to you with the consent of such client. Care Teams (unrecognized sec tion and content) Team Status: Active Member Role Status Dates DEVANG Obando Primary Care Provider Active Team Status: Inactive Member Role Status Dates DEVANG Obando Primary Care Provide r, Attending Provider, Referring Provider Active Thermite Bomb Loader Relationship Specialty Start Date End Date Nicolle Pacheco APRN-DIRECT CARE SUPERVISOR [place] [id number] PCP - Eliel [employer] PCP 06/06/24 ElissaMadhav machado APRN-DIRECT CARE SUPERVISOR [address] [place] [id number] PCP - General Family Medicine 08/24/24 Team Status: Inactive Member Role Status Dates Nicolle Pacheco , SOLUTION MANAGER-C Primary Care Provider Active Start: January 22, 2025 End: January 22, 2025 Nicolle Pacheco SOLUTION MANAGER-C Referring Provider Active St art: January 22, 2025 End: January 22, 2025 Fouzia Schaffer SOLUTION MANAGER-C Attending Provider Active Start: January 22, 2025 End: January 22, 2025 Team Status: Inactive Member Role Status Dates Nicolle Pacheco SOLUTION MANAGER-C Primary Care Provider Active Start: January 24, 2025 End: January 24, 2025 Fouzia Schaffer SOLUTION MANAGER-C Attending Provider Active Start: January 24, 2025 End: January 24, 2025 Team Status: Inactive Member Role Status Dates Nicolle Pacheco SOLUTION MANAGER-C Primary Care Provider Active Start: February 01, 2025 End: February 01, 2025 Nicolle Pacheco , SOLUTION MANAGER-C Attending Provider Active St art: February 01, 2025 End: February 01, 2025 Nicolle Pacheco , SOLUTION MANAGER-C Referring Provider Active St art: February 01, 2025 End: February 01, 2025 Team Status: Active Member Role/Relationship Status Dates Nicolle Pacheco , SOLUTION MANAGER-C Primary Care Provider Active Team Status: Inactive Member Role/Relationship Status Dates Nicolle Pacheco SOLUTION MANAGER-C Primary Care Provider Active Start: January 22, 2025 End: January 22, 2025 Nicolle Pacheco , SOLUTION MANAGER-C Referring Provider Active St art: January 22, 2025 End: January 22, 2025 Fouzia Schaffer SOLUTION MANAGER-C Attending Provider Active Start: January 22, 2025 End: January 22, 2025 Team Status: Inactive Member Role/Relationship Status Dates Nicolle Pacheco , SOLUTION MANAGER-C Primary Care Provider Active Start: January 24, 2025 End: January 24, 2025 Fouzia Schaffer SOLUTION MANAGER-C Attending Provider Active Start: January 24, 2025 End: January 24, 2025 Team Status: Inactive Member Role/Relationship Status Dates DEVANG Obando Primary Care Provider Active Start: February 01, 2025 End: February 01, 2025 DEVANG Obando Attending Provider Active St art: February 01, 2025 End: February 01, 2025 DEVANG Obando Referring Provider Active St art: February 01, 2025 End: February 01, 2025 Team Status: Inactive Member Role/Relationship Status Dates DEVANG Obando Primary Care Provider Active Start: May 02, 2025 End: May 02, 2025 Dr. Amanda Jimenez MD Attending Provider Active Start: May 02, 2025 End: May 02, 2025 Dr. Amanda Jimenez MD Referring Provider Active Start: May 02, 2025 End: May 02, 2025 Goals (unrecognized section and content) Goals may be documented in a n alternate sectionGoals may be documented in an alternate sectionGoals may be documented in an alternate section FOR RECORDS PERTAINING TO PATIENTS WHO ARE OR HAVE BEEN ENROLLED IN A CHEMICAL DEPENDENCY/SUBSTANCEABUSE PROGRAM, SOME INFORMATION MAY BE OMITTED. This clinical summary was aggregated from multiple sources. Caution should be exercised in using it in the provision of clinical care. This summary normalizes information from multiple sources, and as a consequence, information in this document may materially change the coding, format and clinical context of patient data. In addition, data may be omitted in some cases. CLINICAL DECISIONS SHOULD BE BASED ON THE PRIMARY CLINICAL RECORDS. [facility] [employer] [facility] provides no warranty or guarantee of the accuracy or completeness of information in this document.
[2025-08-16 10:04] LABS: Hematocrit 41.9 % (37-47); Hemoglobin 13.8 g/dL (12.0-15.0); Immature Granulocytes Count 0.010 X10^3/uL (0.0-0.0); Mean Corp Hgb Conc 32.9 g/dL (32-36); Mean Corpuscular Volume 93.9 fL (81-99); Mean Platelet Vol. 9.7 fl (6.2-12.0); NRBC Flagged by Analyzer 0 % (0-5); Platelet Count 228 K/mm3 (150-450); RBC Distribution Width CV 13.5 % (11.6-14.6); RBC Distribution Width SD 46.7 fl (35.1-43.9); Red Blood Count 4.46 M/mm3 (4.2-5.4); White Blood Count 4.0 K/mm3 (4.4-11.0)
[2025-08-16 10:31] LABS: AST(SGOT) 23 U/L (<=31); Alanine Aminotransfer ALT/SGPT 11 U/L (<=34); Albumin, Serum 4.2 g/dL (3.4-4.8); Alkaline Phosphatase 64 U/L (35-104); Anion Gap 12 (5-15); BUN 13 mg/dL (4-19); BUN/Creat Ratio 18.2 RATIO (10-20); Calcium,Total 9.5 mg/dL (7.6-11.0); Carbon Dioxide 23.4 mmol/L (21.0-32.0); Chloride 107 mmol/L (98-108); Cholesterol 179 mg/dL (<=200); Globulin 2.4 g/dL (2.2-4.2); Glucose 89 mg/dL (70-99); Low Density Lipoprotein Calc. 118 mg/dL; Potassium 3.3 mmol/L (3.3-5.1); Triglycerides 100 mg/dL; Very Low Density Lipoprotein 20 mg/dL (5-40); cholesterol:hdl ratio screen 4.18
== END | disposition home or self-care (01) ==
LOC: MTLAB 07:08
PROVIDERS: PCP Nurse Practitioner Family; Referring Provider Nurse Practitioner Family; Visit Provider Nurse Practitioner Family
DX: E03.9 Hypothyroidism, unspecified (principal); E78.5 Hyperlipidemia, unspecified; I10 Essential (primary) hypertension
CPT/HCPCS: 36415; 80053; 80061; 84439; 84443; 85025